=== PATIENT | female | born 1955 | race Caucasian/White ===

== ENCOUNTER → 2017-04-18 13:47 | Outpatient (CLI) | payer OTHER, SELFPAY ==
[2017-04-18 13:58] LABS: Bacteria 0 SEEN /hpf (None Seen); Mucous, Urine 0 SEEN /hpf (<or=2+); Red Blood Cells-Urine 0 SEEN /hpf (0-5); Squamous Epithelial Cells - UA 0 SEEN /hpf (5-10)
[2017-04-18 15:33] LABS: Absolute Neutrophil Count 3.1 X10^3/uL (2.0-7.7); Basophil# 0.03 X10^3/uL; Basophil% 0.5 % (0-1); Eosinophil# 0.13 X10^3/uL; Eosinophils% 2.3 % (0-5); Hematocrit 41.6 % (37-47); Hemoglobin 13.5 g/dl (12.0-15.0); Lymphocyte % 35.6 % (19-41); Mean Corp Hgb Conc 32.5 g/gl (32-36); Mean Corpuscular Hgb 28.8 pg (27.0-32.0); Mean Corpuscular Volume 88.9 fL (81-99); Mean Platelet Vol. 10.3 fl (6.2-12.0); Monocyte# 0.39 X10^3/uL; Monocyte% 6.9 % (0-10); Neutrophil # 3.07 X10^3/uL (2.7-7.7); Neutrophil % 54.7 % (47-70); Platelet Count 253 K/mm3 (150-450); RBC Distribution Width CV 14.3 % (11.6-14.6); RBC Distribution Width SD 46.4 fl (35.1-43.9); Red Blood Count 4.68 M/mm3 (4.2-5.4); White Blood Count 5.6 K/mm3 (4.4-11.0)
[2017-04-18 15:36] LABS: Color, Urine Yellow (Yellow); Glucose, Dipstick Normal (Normal); Ketone-Dipstick Negative (Negative); Leukocyte Esterase-Dipstick 25 /ul (Negative); Nitrite-Dipstick Negative (Negative); Occult Blood-Urine 10 /ul (Negative); Protein-Dipstick 30 mg/dl (Negative); Specific Gravity, Urine 1.015 (1.002-1.030); Urine Bilirubin Dipstick Negative (Negative); Urine Clarity Clear (Clear); Urine Urobilinogen Normal (Normal); Urine pH 6.5 (5.0 - 8.0)
[2017-04-18 15:37] LABS: POSITIVE COUNT NO; POSITIVE DIFFERENTIAL NO; POSITIVE MORPHOLOGY NO
[2017-04-18 15:50] LABS: AST(SGOT) 22 U/L (15-37); Alanine Aminotransfer ALT/SGPT 28 U/L (13-56); Albumin, Serum 3.8 g/dL (3.2-5.0); Alkaline Phosphatase 56 U/L (45-117); Anion Gap 6 (5-15); BUN 18 mg/dL (7-18); BUN/Creat Ratio 19.3 RATIO (10-20); Chloride 106 mmol/L (98-107); Creatinine, Serum 0.93 mg/dL (0.55-1.02); EST Glomerular Filtration Rate 64 mL/min (>60); Est Glom Filt Rate - Afr Amer 78 mL/min (>60); Globulin 3.9 g/dL (2.2-4.2); Glucose 92 mg/dL (74-106); Protein, Total 7.7 g/dL (6.4-8.2); Sodium Level 142 mmol/L (136-145)
[2017-04-18 15:56] LABS: White Blood Cells 0-5 SEEN /hpf (0-5)
== END ==
PROVIDERS: Family Provider Family Medicine; PCP Family Medicine; Visit Provider Family Medicine
DX: R10.11 Right upper quadrant pain (principal)
CPT/HCPCS: 36415; 80053; 81001; 85025; 87086; 87088

== ENCOUNTER → 2017-04-21 09:29 | Outpatient (CLI) | payer OTHER, SELFPAY ==
--- NOTE | 2017-04-21 09:41 | US_ITS ---
STUDY: ABDOMINAL ULTRASOUND - RIGHT UPPER QUADRANT REASON FOR VISIT: Female, 61 years old. Right upper quadrant pain. TECHNIQUE: Ultrasound evaluation of the right upper quadrant was performed with real-time and static guerrero-scale imaging. TECHNICAL QUALITY: Adequate. COMPARISON: Comparison is made with prior examination dated March 04, 2014. FINDINGS: Liver: The liver measures 13.4 cm. There is increased echogenicity consistent with fatty infiltration. Focal fatty sparing is seen in the region of the gallbladder fossa. The bile ducts are within normal limits. There is hepatic color flow. The direction of portal flow is hepatopetal. There is no demonstrated mass lesion. Gallbladder: The patient is status post cholecystectomy. Common Bile Duct (C.B.D.): The common bile duct measures 4.5 mm. Pancreas: There is nonvisualization of the pancreas due to overlying bowel gas. Right Kidney: Normal size of the right kidney. The right kidney measures 10.0 cm x 4.2 cm x 5.0 cm. Normal renal cortex. The right cortex measures 1.8 cm. There is no demonstrated renal mass or cyst. There is no right hydronephrosis. US/Abdomen Limited IMPRESSION: Fatty infiltration of the liver. Status post cholecystectomy. Electronically Signed: Eliezer Branch MD at 15:04 EST Tel [phone], Service support ,
== END ==
PROVIDERS: Family Provider Family Medicine; PCP Family Medicine; Visit Provider Family Medicine
DX: R10.11 Right upper quadrant pain (principal)
CPT/HCPCS: 76705

== ENCOUNTER → 2017-04-28 14:39 | Outpatient (CLI) | payer OTHER, SELFPAY ==
--- NOTE | 2017-04-28 14:40 | CT_ITS ---
STUDY: CT ABDOMEN AND PELVIS WITH CONTRAST REASON FOR EXAM: Female, 61 years old. Right upper quadrant and flank pain. RADIATION DOSAGE (If Supplied By Facility): CTDIvol = ( 21.89 ) mGy, DLP = ( 1093.53 ) mGycm TECHNIQUE: Transaxial images were obtained from the dome of the diaphragm to the symphysis pubis with oral contrast. 100mL ml of Isovue 300 contrast was administered. Sagittal and coronal images were reconstructed. Individualized dose optimization techniques were used for this CT. COMPARISON: None. FINDINGS: Mild degree of dependent bibasilar atelectasis. The visualized portions of the heart are within normal limits. Mild degree of fatty infiltration of the liver. The patient is status post cholecystectomy. Normal spleen. Normal pancreas. Normal bilateral adrenal glands. Normal right kidney. Normal left kidney. Normal visualized stomach. Normal small intestine. There are scattered colonic diverticula consistent with diverticulosis. The patient is status post appendectomy. Normal abdominal aorta. Normal inferior vena cava. Normal retroperitoneum. Normal urinary bladder. There is absence of the uterus consistent with a prior hysterectomy. Normal abdominal wall. There are mild degenerative changes of the visualized lumbar spine. CT/Abdomen/Pelvis WITH Contrast IMPRESSION: No acute abnormality is seen. Electronically Signed: Eliezer Branch MD at 8:31 EDT Tel [phone], Service support ,
== END ==
PROVIDERS: Family Provider Family Medicine; PCP Family Medicine; Visit Provider Family Medicine
DX: R10.9 Unspecified abdominal pain (principal); R10.11 Right upper quadrant pain
CPT/HCPCS: 74177; Q9967

== ENCOUNTER → 2017-08-01 11:44 | Outpatient (CLI) | payer OTHER, SELFPAY ==
--- NOTE | 2017-08-01 11:52 | RAD_ITS ---
STUDY: X-RAY - LUMBAR SPINE REASON FOR EXAM: Female, 62 years old. Back injury 2 weeks ago. No improvement in pain and ability to get around. TECHNIQUE: 5 view(s) of the lumbar spine were obtained. COMPARISON: CT abdomen the abdomen and pelvis 04/28/2017. FINDINGS: Normal lumbar lordosis. There is no substantial scoliosis. There is a normal alignment of the vertebrae. Normal vertebral bodies and endplates. Moderate L5-S1 disc space height narrowing is unchanged. The soft tissue structures are unremarkable. RAD/L/S Spine Min 4 Views IMPRESSION: 1. No acute fracture or malalignment of the lumbar spine. 2. Moderate L5-S1 disc space height narrowing. 3. No significant interval changes when compared to CT abdomen and pelvis dated 04/28/2017. Electronically Signed: Benitez Renee MD at 12:07 EDT , Service support ,
== END ==
PROVIDERS: Family Provider Family Medicine; PCP Family Medicine; Visit Provider Physician Assistant Surgical
DX: S39.012A Strain of muscle, fascia and tendon of lower back, initial encounter (principal)
CPT/HCPCS: 72110

== ENCOUNTER 2017-09-12 15:30 | Outpatient (RCR) | payer OTHER, SELFPAY ==
--- NOTE | 2017-08-11 14:21 | HP.PTEVAL ---
Patient's Visit Information JOSHUA NOGUEIRA is a 62 year old F referred to Physical Therapy by DALLAS Hill with a diagnosis of Lumbar strain. Date of Evaluation: 08/11/17 Physical Therapist: Jm Araya PT, - Visit Plan Frequency: 3x /Week Duration: 4 Weeks Plan: Posterolateral derangement above the knee. Extension responder. Avoid flexion for now. Progress to core strengthening and work simulated tasks when symptoms are controlled. - Subjective Subjective: Pt is a 62 y/o female referred for lumbar strain. 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 She was bending over at the waist to continuous pickling line pickler the object. She is improving overall but still having persistent pain in the L low back region. Describes this symptom as dull. Denies LE radicular symptoms, weakness, numbness, b/b incontinence. She is working ~4 hours/day with restrictions that include: no lifting >10#, no squatting or stooping. Aggrevating factors: sitting for an hour, twisiting Easing factors: Heat, extension. 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 PALPATION: TTP L PSIS. ROM: Lumbar flexion* 25%, extension 75%, R LF 100%, L LF* 50%. ASSESSORY: L4,5 hypomobile PAIVM. GAIT:normal estefanía reciprocal pattern. NEURO: intact,denies parathesia/tingling. MMT: quads/hams 4/5,hip flexion 4/5,great toe ext 4/5. SYMMTRIES: align. FLEXABLITY: hasm min - Special Tests L/S Slump test left side: Positive L/S Slump test right side: Negative L/S Left Straight Leg Raise: Positive L/S Right Straight Leg Raise: Negative Lumbar Standing: Flexion - Mechanical Response: No effect Lumbar Standing: Flexion - Symptoms During Testing: Increases Lumbar Standing: Flexion - Symptoms After Testing: Worse Lumbar Standing: Extension - Mechanical Response: No effect Lumbar Standing: Extension - Symptoms During Testing: Decreases Lumbar Standing: Extension - Symptoms After Testing: Better Comments:: NT Lumbar Lying: Extension - Mechanical Response: No effect Lumbar Lying: Extension - Symptoms During Testing: Decreases Lumbar Lying: Extension - Symptoms After Testing: Better Comments:: L-S - Goals Goal 1:: Pt will demonstrate full lumbar AROM in all planes to improve tolerance with self care and work related tasks. Goal Time Frame: 4-6 Weeks Goal 2:: Pt will demonstrate proper upright sitting posture to improve tolerance with prolonged sitting. Goal Time Frame: 4-6 Weeks Goal 3:: Pt will demonstrate squat lift of 20# from floor to plinth with good body mechanics to reduce risk of re-injury at work. Goal Time Frame: 4-6 Weeks Goal 4:: Pt will be independent with HEP to sustain gains made in the clinic. Goal Time Frame: 4-6 Weeks Goal 5:: Pt will report no limitation with prolonged sitting or walking to improve tolerance with work related tasks. Goal Time Frame: 4-6 Weeks - Rehabilitation Potential Physical Therapy Diagnosis: Pt is 62 y/o female referred for lumbar strain. PT impression symmtrical-assymtical derrangemnt above knee.She has ISAAC of work related injury where she was bending over . She is improving since initial onset. She responded well to REIL and may be classified as a posterolateral derangement above the knee. She has activity limitations that include difficulty with prolonged sitting, inability to lift, and difficulty walking for long periods of time. This limits her participation with work related duties. Pt will benefit from skilled PT to return the patient to full duty work. Rehabilitation Potential: Excellent - Anticipated Interventions Patient/Client Instruction: Educate patient on: Condition, Plan of Care For the Purpose of:: To decrease pain, To increase ROM, To improve muscle performance and motor function, To increase tolerance to activity/condition/position, To improve performance and independence with ADL's, To improve ability of physical actions for home/community/work/leisure, To improve health of tissue, To decrease soft tissue restriction, To increase flexibility/ROM, To reduce risk of recurrence, To improve self management, To prevent re-injury Therapeutic Exercise to Include: Strength training, Endurance training, Body mechanics, Postural training, Flexibilty training, Active ROM, Dynamic Lumbar Stabilization, Toni Exercises For the Purpose of:: To decrease pain, To increase ROM, To improve muscle performance and motor function, To increase tolerance to activity/condition/position, To improve performance and independence with ADL's, To improve ability of physical actions for home/community/work/leisure, To improve health of tissue, To decrease soft tissue restriction, To increase flexibility/ROM, To improve endurance, To reduce risk of recurrence, To improve self management, To prevent re-injury Manual Therapy Techniques to Include: Mobilization, Passive ROM, Soft tissue mobilization For the Purpose of:: To decrease pain, To increase ROM, To improve muscle performance and motor function, To improve ability to perform ADL's, To increase tolerance to activity/condition/position, To improve ability of physical actions for home/community/work/leisure, To improve health of tissue, To decrease soft tissue restriction, To increase flexibility/ROM, To improve endurance TENS: Yes IF ES: Yes Other electric stimulation: Yes Cryotherapy (ice pack, ice massage): Yes Thermo therapy (hot pack): Yes Ultrasound (thermal/non thermal): Yes For the Purpose of:: To decrease pain, To increase ROM, To improve muscle performance and motor function, To increase tolerance to activity/condition/position, To improve performance and independence with ADL's, To improve ability of physical actions for home/community/work/leisure, To decrease soft tissue restriction, To increase flexibility/ROM, To improve endurance, To reduce risk of recurrence Thank you for the opportunity to evaluate your patient. For Medicare and Medicare HMO plans, please review the plan of care and approve it. It will need to be FAXED BACK to us at [phone] for Medicare purposes. Please let me know if there are questions or concerns regarding this plan of care. Physician Signature: Date:
--- NOTE | 2017-09-12 16:12 | HP.PTDCSUM_ITS ---
HP - PT D/C Summary It has been my pleasure to treat JOSHUA NOGUEIRA under orders from D[facility], for the diagnosis of Lumbar strain for a total of 12 visit(s). Discharge Date: 09/12/17 Please see the following information for a summary of their discharge status. - Subjective Subjective: Doing good . - Pain low back Pain Intensity (Out of 10): 0 - Overall Improvement % Improvement: 90 - Objective Objective/Function: POSTURE: WFL. GAIT: NORMAL PEDRO. MMT: quads/hams 4/5, hip 4/5 ,ankle 5/5. LUMBAR ROM: FLEXION MIN ,EXTENSION WFL ,SIDE GLIDES NO PAIN. FLEXABLITY: HAMS WFL - Goals Goal 1:: Pt will demonstrate full lumbar AROM in all planes to improve tolerance with self care and work related tasks. Goal Progress: Goal Met Goal 2:: Pt will demonstrate proper upright sitting posture to improve tolerance with prolonged sitting. Goal Progress: Goal Met Goal 3:: Pt will demonstrate squat lift of 20# from floor to plinth with good body mechanics to reduce risk of re-injury at work. Goal Progress: Goal Met Goal 4:: Pt will be independent with HEP to sustain gains made in the clinic. Goal Progress: Goal Met Goal 5:: Pt will report no limitation with prolonged sitting or walking to improve tolerance with work related tasks. Goal Progress: Goal Met - Plan Plan: D/C - D/C Information Discharge Comments: HEP,GYM If there are questions or concerns regarding this patient's physical therapy, please feel free to call me at [phone]. Thank you for the referral of this patient. Sincerely, Jm Araya, PT,
== END 2017-09-12 19:00 | disposition home or self-care (01) ==
LOC: PT 15:30
PROVIDERS: Family Provider Family Medicine; PCP Family Medicine; Visit Provider Physician Assistant Surgical
DX: S39.012D Strain of muscle, fascia and tendon of lower back, subsequent encounter (principal)
CPT/HCPCS: 97014; 97035; 97110; 97161; G0283

== ENCOUNTER → 2018-07-07 | Outpatient (CLI) | payer MEDICARE, OTHER, SELFPAY ==
[2018-03-13 11:41] VITALS: BMI 28.6
--- NOTE | 2018-07-07 15:27 | RAD_ITS ---
STUDY: X-RAY - RIGHT CALCANEUS REASON FOR EXAM: Female, 63 years old. Right heel pain TECHNIQUE: 2 view(s) of the calcaneus were obtained. COMPARISON: None. FINDINGS: Normal visualized calcaneus. There is a plantar calcaneal spur. There is enthesophyte formation of the posterior superior calcaneus at the site of insertion of the Achilles tendon. There is localized soft tissue swelling posteriorly and thickening of the Achilles tendon. RAD/Calcaneus min 2 Views IMPRESSION: 1. Achilles tendon thickening and posterior soft tissue swelling suggests possibility of tendinopathy. MRI suggested, if clinically appropriate. 2. Calcaneal enthesophyte. 3. Calcaneal spur. Electronically Signed: Gerardo Kulkarni MD at 16:55 EDT , Service support ,
== END | disposition home or self-care (01) ==
LOC: MTRAD 15:25
PROVIDERS: Family Provider Family Medicine; PCP Family Medicine; Referring Provider Family Medicine; Visit Provider Family Medicine
DX: M79.671 Pain in right foot (principal)
CPT/HCPCS: 73650

== ENCOUNTER 2018-10-21 09:08 | Emergency (ER) | payer MEDICARE, OTHER, SELFPAY ==
[2018-10-14 11:13] VITALS: BMI 28.6
[2018-10-21 09:08] VITALS: BP 141/73; PULSE 87; RESP 17; TEMP 36.9; O2SAT 92; BMI 28.1
[2018-10-21 09:59] LABS: Bacteria 0 SEEN /hpf (None Seen); Mucous, Urine 0 SEEN /hpf (<or=2+); Red Blood Cells-Urine 0 SEEN /hpf (0-5); White Blood Cells 0 SEEN /hpf (0-5)
[2018-10-21 10:19] LABS: ALB/GLOB Ratio 0.8 RATIO (0.9-2.4); AST(SGOT) 15 U/L (15-37); Alanine Aminotransfer ALT/SGPT 25 U/L (13-56); Albumin, Serum 3.3 g/dL (3.2-5.0); Alkaline Phosphatase 64 U/L (45-117); Anion Gap 2 (5-15); BUN 25 mg/dL (7-18); BUN/Creat Ratio 27.9 RATIO (10-20); Calcium,Total 8.2 mg/dL (8.5-10.1); Chloride 107 mmol/L (98-107); EST Glomerular Filtration Rate 67 mL/min (>60); Est Glom Filt Rate - Afr Amer 81 mL/min (>60); Globulin 4.1 g/dL (2.2-4.2); Glucose 98 mg/dL (74-106); Protein, Total 7.4 g/dL (6.4-8.2); Sodium Level 141 mmol/L (136-145)
[2018-10-21 10:24] LABS: Color, Urine Yellow (Yellow); Glucose, Dipstick Normal (Normal); Ketone-Dipstick Negative (Negative); Leukocyte Esterase-Dipstick 25 /ul (Negative); Nitrite-Dipstick Negative (Negative); Occult Blood-Urine Negative /ul (Negative); Protein-Dipstick 15 mg/dl (Negative); Specific Gravity, Urine 1.015 (1.002-1.030); Urine Bilirubin Dipstick Negative (Negative); Urine Clarity Clear (Clear); Urine Urobilinogen Normal (Normal); Urine pH 6.5 (5.0 - 8.0)
[2018-10-21 10:25] LABS: Absolute Lymphocyte Count 1.54 X10^3/uL (0.83-4.51); Absolute Neutrophil Count 5.4 X10^3/uL (2.0-7.7); Basophil# 0.05 X10^3/uL; Basophil% 0.6 % (0-1); Eosinophil# 0.26 X10^3/uL; Eosinophils% 3.3 % (0-5); Hemoglobin 14.6 g/dL (12.0-15.0); Lymphocyte # 1.54 X10^3/ul (4.0); Lymphocyte % 19.6 % (19-41); Mean Corp Hgb Conc 31.7 g/dL (32-36); Mean Corpuscular Hgb 28.7 pg (27.0-32.0); Mean Corpuscular Volume 90.6 fL (81-99); Mean Platelet Vol. 9.2 fl (6.2-12.0); Monocyte# 0.59 X10^3/uL; Monocyte% 7.5 % (0-10); NRBC Flagged by Analyzer 0 % (0-5); Neutrophil # 5.37 X10^3/uL (2.7-7.7); Neutrophil % 68.6 % (47-70); Platelet Count 255 K/mm3 (150-450); RBC Distribution Width CV 14.6 % (11.6-14.6); RBC Distribution Width SD 48.2 fl (35.1-43.9); Red Blood Count 5.08 M/mm3 (4.2-5.4); White Blood Count 7.8 K/mm3 (4.4-11.0)
--- NOTE | 2018-10-21 10:25 | ED.VIS.GEN ---
History of Present Illness Chief Complaint: Allergic Reaction Narrative: Patient presenting for evaluation due to concern for possible facial infection with swelling. Patient states that over the course of the last couple weeks she has been dealing with problems with facial swelling. She reports that it is around her bilateral eyes, and is associated with some itching and pain. Patient states that initially she was seen in urgent care for this was placed on a course of prednisone as well as azithromycin and had some improvement but then returned. Again, the patient went on a course of azithromycin and prednisone and it improved, and when she stopped taking the prednisone on she states that she had recurrence once again. Patient denies any fevers. She denies any lip or tongue swelling, shortness of breath or difficulty swallowing. She denies any new contacts such as soap foods close detergents cosmetics pets any travel. She is never had any prior similar episodes in the past. No fevers associated with this. She denies any pain with eye movement. Review of systems otherwise negative. Past Medical History - Allergies and Home Meds Allergies/Adverse Reactions: Allergies latex Allergy (Verified 10/21/18 09:08) Unknown oxycodone Adverse Reaction (Verified 10/21/18 09:08) Nausea/Vom/Diarrhea Primary Care Physician: Rigo Crum DO [Primary Care Provider] - Past Medical History: - - Depression Smoking Status: Former smoker Review of Systems All systems negative except as indicated General: Denies: Fever Eyes: Denies: Visual changes - bilaterally ENT: Reports: - - Facial swelling Respiratory: Denies: Dyspnea Physical Exam Vital Signs/Narrative: Vital Signs Temp Pulse Resp BP Pulse Ox 10/21/18 09:08 98.4 F 87 17 141/73 H 92 General: Well nourished, Well developed, No Acute Distress Head: Normocephalic, - - bilateral periorbital edema with a very fine yellow crusting. No fluctuance noted Eyes: Perrl, EOMI - No pain with EOM Neck: Supple, Nontender Cardiovascular: Regular rate, Regular rhythm, No murmurs Respiratory: No distress, CTA bilaterally, Chest nontender Abdomen: Soft, Nontender, Nondistended, Normal bowel sounds Back: Nontender, Normal Inspection Extremities: Nontender, No edema Skin: Normal color, No rash Neurological: Alert, Oriented x3, Cranial nerves II-XII grossly intact, Normal Strength, Normal Sensation Psychological: Normal affect, Normal Mood Diagnostic/Tx/Re-eval - Medical Decision Making Secondary to periorbital edema. Physical exam showed swelling that really seemed more consistent with an allergic type reaction, but there was a fine amount of yellow crusting over the skin that potentially could be evidence of a streptococcal infection or impetigo. I did obtain labs on the patient to make sure that this was not an abnormal presentation of a leukemia, nephrotic syndrome, renal insufficiency, electrolyte abnormality those were found to be negative. Patient at this point I believe would benefit from continued antibiotic and steroid taper. She was encouraged to follow-up with primary care on Tuesday with a previously scheduled appointment. Patient does not seem to have any evidence of orbital cellulitis. ED Disposition - Plan for ED Patient: Disposition: Home or Assisted Living Diagnosis: Periorbital edema Instructions: ALLERGIC REACTION, Other (Local), Impetigo Prescriptions: Amox/Clavulanate Tablet [Augmentin Tablet] 875 mg PO Q12H #20 tab Prescription Printed Prednisone 10 mg PO DAILY #63 tab Prescription Printed hydrOXYzine pamoate capsule [Vistaril] 50 mg PO TID PRN PRN #30 cap PRN Reason: Itching Prescription Printed Referrals: Rigo Crum DO [Primary Care Provider] - Keep Robert appointment
[2018-10-21 10:52] LABS: Squamous Epithelial Cells - UA 0-5 SEEN /hpf (5-10)
[2018-10-21 11:23] VITALS: BP 118/62; PULSE 74; RESP 16; O2SAT 97
== END 2018-10-21 11:24 | disposition home or self-care (01) ==
PROVIDERS: Emergency Provider Emergency Medicine; Family Provider Family Medicine; PCP Family Medicine
DX: R22.0 Localized swelling, mass and lump, head (principal); F32.9 Major depressive disorder, single episode, unspecified; Z79.899 Other long term (current) drug therapy; Z87.891 Personal history of nicotine dependence
CPT/HCPCS: 80053; 81001; 85025; 99284; A4216

== ENCOUNTER → 2018-10-23 09:27 | Outpatient (CLI) | payer MEDICARE, OTHER, SELFPAY ==
[2018-10-21 09:08] VITALS: BMI 28.1
[2018-10-23 13:09] LABS: Thyroid Stim Hormone (TSH) 3.01 uIU/mL (0.358-3.74)
[2018-10-25 12:21] LABS: ANTINUCLEAR ANTIBODIES DIRECT Negative (Negative)
[2018-10-25 20:10] LABS: Thyroid Peroxidase AB 587 IU/mL (0-34)
[2018-10-30 13:00] LABS: C1 EST Inhibitor, Functional 83 (.); Thyroglobulin Antibody 4.8 IU/mL (0.0-0.9)
== END ==
PROVIDERS: Family Provider Family Medicine; PCP Family Medicine; Visit Provider Family Medicine
DX: R60.9 Edema, unspecified (principal); R53.83 Other fatigue; T78.3XXA Angioneurotic edema, initial encounter; L50.9 Urticaria, unspecified
CPT/HCPCS: 36415; 84443; 86038; 86160; 86161; 86225; 86235; 86376; 86800

== ENCOUNTER 2018-11-16 12:00 | Outpatient (RCR) | payer MEDICARE, SELFPAY ==
[2018-03-13 11:41] VITALS: BMI 28.6
--- NOTE | 2018-09-19 15:51 | HP.PTEVAL_ITS ---
Patient's Visit Information JOSHUA NOGUEIRA is a 63 year old F referred to Physical Therapy by Michael Escobedo DPM with a diagnosis of R achilles tendonitis and calcaneal spurring. Date of Evaluation: 09/19/18 Physical Therapist: Dariusz Hassan DPT - Visit Plan Frequency: 2x /Week Duration: 4-6 Weeks Plan: Start with graston to achilles tendon, US and stretching. May progressing to DN if needed. Once pain has reduced add in eccentric strengthening as tolerat ed. - Subjective Findings: Pt. is here today for her initial evaluation with diagnosis of R achilles tendonitis and calcaneal heel spur. Pt. reports having increased pain for months, but became worse of the last few months. Pt. has been in a boot for ~1 month now and reports slight reduction in symptoms. Pt. reports increased pain with walking, standing and is tender to the touch. Pt. denies N/T in either LE. Pt. has not trialed any exercises yet, but did do some light ankle pumps/DF movement. Pt. reports icing x2 daily. Pt. works at [employer] during the day for ~6 hours x5 days per week. Pt. is hopeful to reduce symptoms in order to get back to all recreational activtiies including walking, hiking, but not running. - Pain R achilles tendon Pain Intensity (Out of 10): 4 Pain Intensity Range: 3, 8 - Objective POSTURE: Pt. has normal foot positoning in stance. Pt. has increased pain and difficulty maintaining proper SLS positioning. PALPATION: Pt. has increased tenderness at achilles tendon ~1 inch superior to superior aspect of calcaneus. pt. has thin achilles tendon as well. Normal color, no heat. NEURO: normal throughout. ROM: L ankle DF 18deg, PF 54deg, INV 18deg, EVR 16deg. R ankle DF 6deg increase NW, PF 48deg NE, INV 14deg NE, EVR 14deg NE. MMT: L ankle- 5/5 throughout; R ankle- DF 5/5, PF 5-/5 mild increase NW, INV 5-/5 mild increase NW, EVR 5/5 NE. GAIT: Pt. ambulating without AD: Pt. has decreased L step le ngth, early R heel off, limited PF during pre swing phase, Flat foot landing during initial contact on RLE. STAIRS: Increased pain with descneding, less severe with ascending. - Goals Goal 1:: Pt. to be I with HEP. Goal Time Frame: 4-6 Weeks Goal 2:: Pt. to have increased R ankle DF to full without increase in syptoms. Goal Time Frame: 4-6 Weeks Goal 3:: Pt. to ambulate with normalied gait pattern without increase in symptoms of unlmited distances. Goal Time Frame: 4-6 Weeks Goal 4:: Pt. to negotiate steps with reciprocal pattern with use of 1 HR wtihout increase in symptoms. Goal Time Frame: 4-6 Weeks Goal 5:: Pt. to have full strength of R ankle musculature without increase in symptoms. Goal Time Frame: 4-6 Weeks - Rehabilitation Potential Physical Therapy Diagnosis: Pt. has signs and symptoms consistent with achilles tendonosis and calcaneal spurring. Pt. has decreased ROM, increased pain and difficulty with walking. Pt. would benefit from PT to address above limitations. Rehabilitation Potential: Good - Anticipated Interventions Patient/Client Instruction: Educate patient on: Condition, Plan of Care, Risk Factors, Benefits of Fitness Program For the Purpose of:: To facilitate caregiver knowledge, To improve self management, To prevent re-injury, To improve ability to perform tasks related to life management, To improve tolerance to ADL's Therapeutic Exercise to Include: Strength training, Power training, Balance training, Body mechanics, Postural training, Flexibilty training, Gait and locomotor training, Passive ROM For the Purpose of:: To decrease pain, To decrease swelling/inflammation, To increase ROM, To improve nutrient delivery to tissue, To improve muscle performance and motor function, To increase tolerance to act ivity/condition/position, To improve gait and locomotor functions, To improve health of tissue, To decrease soft tissue restriction, To increase flexibility/ROM Manual Therapy Techniques to Include: Functional dry needling, Soft tissue mobilization Comment: [place] and [place] For the Purpose of:: To decrease pain, To decrease swelling/inflammation, To increase ROM, To improve nutrient delivery to tissue, To increase oxygenation perfusion, To improve muscle performance and motor function TENS: Yes Cryotherapy (ice pack, ice massage): Yes Ultrasound (thermal/non thermal): Yes For the Purpose of:: To decrease pain, To decrease swelling/inflammation, To increase ROM, To improve nutrient delivery to tissue, To increase oxygenation perfusion, To improve muscle performance and motor function Thank you for the opportunity to evaluate your patient. For Medicare and Medicare HMO plans, please review the plan of care and approve it. It will need to be FAXED BACK to us at [phone] for Medicare purposes. For Medicare only, by signing this I certify the plan of care. Please let me know if there are questions or concerns regarding this plan of care. Physician Signature : Date:
--- NOTE | 2018-10-19 12:37 | HP.PTREVAL_ITS ---
Michael Escobedo DPM, It has been my pleasure to treat JOSHUA NOGUEIRA over the last 10 visits for R achilles tendonitis and calcaneal spurring. Please see the progress note below for an update on the physical therapy plan of care! Subjective: Patient reports MD thinks that she is 80% better and wants to continue therapy and to be 100%. Is worries that she doesn't have a tweak to set her backwards. Patient feels that she is 80%- wants to be able to do the ellip for 30 min. No rhyme or reason but does have some soreness- 02/23 at its worst. He wants her to wear the boot for work- and around the house for intense activities. Objective/Function: POSTURE: Pt. has normal foot positoning in stance phase. SLS: 10 sec increased muscle activation and increased pes planus. Observation: minimalist shoes - poor support- no inserts. PALPATION:mild tenderness at achilles tendon ~1 inch superior to superior aspect of calcaneus. ROM: R ankle DF 12 degrees, PF 55 degrees INV 20 degrees, EVR 15 degrees. Strength: L ankle- 5/5 throughout; R ankle: 5/5, knee: 5/5, hip: 4/5 throughout Core: fair. GAIT: no deviation noted. Plan Plan: Patient to continue 2x a week for 4 weeks for LE and core strength/stabilization- new shoes to promote decreased muscle activation in SLS- wean back into ellip and walking on TM Goals Goal 1:: Pt. to be I with HEP. Goal Time Frame: 4-6 Weeks Goal Progress: Progressing Goal 2:: Pt. to have increased R ankle DF to full without increase in syptoms. Goal Time Frame: 4-6 Weeks Goal Progress: Progressing Goal 3:: Pt. to ambulate with normalied gait pattern without increase in symptoms of unlmited distances. Goal Time Frame: 4-6 Weeks Goal Progress: Progressing Goal 4:: Pt. to negotiate steps with reciprocal pattern with use of 1 HR wtihout increase in symptoms. Goal Time Frame: 4-6 Weeks Goal Progress: Goal Met Goal 5:: Pt. to have full strength of R ankle musculature without increase in symptoms. Goal Time Frame: 4-6 Weeks Goal Progress: Progressing Anticipated Interventions Patient/Client Instruction: Educate patient on: Condition, Plan of Care, Risk Factors, Benefits of Fitness Program For the Purpose of:: To facilitate caregiver knowledge, To improve self management, To prevent re-injury, To improve ability to perform tasks related to life management, To improve tolerance to ADL's Therapeutic Exercise to Include: Strength training, Power training, Balance training, Body mechanics, Postural training, Flexibilty training, Gait and locomotor training, Passive ROM For the Purpose of:: To decrease pain, To decrease swelling/inflammation, To increase ROM, To improve nutrient delivery to tissue, To improve muscle performance and motor function, To increase tolerance to activity/condition/position, To improve gait and locomotor functions, To improve health of tissue, To decrease soft tissue restriction, To increase flexibility/ROM Manual Therapy Techniques to Include: Functional dry needling, Soft tissue mobilization Comment: Alejandra barahona For the Purpose of:: To decrease pain, To decrease swelling/inflammation, To increase ROM, To improve nutrient delivery to tissue, To increase oxygenation perfusion, To improve muscle performance and motor function TENS: Yes Cryotherapy (ice pack, ice massage): Yes Ultrasound (thermal/non thermal): Yes For the Purpose of:: To decrease pain, To decrease swelling/inflammation, To increase ROM, To improve nutrient delivery to tissue, To increase oxygenation perfusion, To improve muscle performance and motor function Please do not hesitate to contact me at [phone] by phone or Fax: if you have questions or concerns regarding this new plan of care! Sincerely, Enriqueta Acosta DPT
--- NOTE | 2018-11-16 12:32 | HP.PTDCSUM ---
HP - PT D/C Summary It has been my pleasure to treat JOSHUA NOGUEIRA under orders from Michael Escobedo DPM, for the diagnosis of R achilles tendonitis and calcaneal spurring for a total of 18 visit(s). Discharge Date: 11/16/18 Please see the following information for a summary of their discharge status. - Subjective Subjective: Pt. reports no issues currently. Pt. is no longer wearing her boot and has not had pain in 2 weeks. Pt. reports being 100% better. Pt. is now fully independent with gym and home exercises. - Pain R achilles tendon Pain Intensity (Out of 10): 0 - Overall Improvement % Improvement: 100 - Objective Objective/Function: Pt. has full ROM of her ankle, no pain with MMT and with all functional mobility. Pt. did very well with PT and will be DC from PT at this point in time. - Goals Goal 1:: Pt. to be I with HEP. Goal Progress: Goal Met Goal 2:: Pt. to have increased R ankle DF to full without increase in syptoms. Goal Progress: Goal Met Goal 3:: Pt. to ambulate with normalied gait pattern without increase in symptoms of unlmited distances. Goal Progress: Goal Met Goal 4:: Pt. to negotiate steps with reciprocal pattern with use of 1 HR wtihout increase in symptoms. Goal Progress: Goal Met Goal 5:: Pt. to have full strength of R ankle musculature without increase in symptoms. Goal Progress: Goal Met - Plan Plan: Pt. to be DC to HEP and gym exercises at this point intime. - D/C Information Discharge Comments: Pt. was seen in PT for her achilles tendon pain. She progressed very well and reports being 100% better. Pt. reports no pain and no longer wearing her boot. Pt. is back to all work and recreational actvities. Pt. will be DC from PT at this point in time. If there are questions or concerns regarding this patient's physical therapy, please feel free to call me at [phone]. Thank you for the referral of this patient. Sincerely, Dariusz Hassan DPT
== END 2018-11-16 15:49 | disposition home or self-care (01) ==
LOC: PT 12:00
PROVIDERS: Family Provider Family Medicine; PCP Family Medicine; Referring Provider Podiatrist; Visit Provider Podiatrist
DX: M77.31 Calcaneal spur, right foot (principal); M76.61 Achilles tendinitis, right leg; M79.671 Pain in right foot; M21.6X9 Other acquired deformities of unspecified foot
CPT/HCPCS: 97035; 97110; 97161; 97164

== ENCOUNTER → 2018-12-01 11:08 | Outpatient (CLI) | payer MEDICARE, OTHER, SELFPAY ==
[2018-11-29 11:01] VITALS: BMI 28.1
[2018-12-01 16:41] LABS: T4 Free Direct 1.04 ng/dL (0.76-1.46); Thyroid Stim Hormone (TSH) 0.26 uIU/mL (0.358-3.74)
== END ==
LOC: LAB.FUTURE 11:09 → BFHLAB 01-25 14:17
PROVIDERS: Family Provider Family Medicine; PCP Family Medicine; Visit Provider Family Medicine
DX: E06.3 Autoimmune thyroiditis (principal)
CPT/HCPCS: 36415; 84439; 84443

== ENCOUNTER → 2019-01-01 14:06 | Outpatient (CLI) | payer MEDICARE, OTHER, SELFPAY ==
[2018-11-29 11:01] VITALS: BMI 28.1
[2019-01-05 08:11] LABS: Alternaria tenuis <0.10 kU/L (Class 0); Ash, White <0.10 kU/L (Class 0); Aspergillus fumigatus <0.10 kU/L (Class 0); Bermuda Grass <0.10 kU/L (Class 0); Birch <0.10 kU/L (Class 0); Black Walnut <0.10 kU/L (Class 0); Cat Hair / Dander,Stand <0.10 kU/L (Class 0); Cedar, Mountain <0.10 kU/L (Class 0); Cladosporium herbarum <0.10 kU/L (Class 0); Cockroach, American <0.10 kU/L (Class 0); Cottonwood <0.10 kU/L (Class 0); D farinae Mite <0.10 kU/L (Class 0); D pteronyssinus <0.10 kU/L (Class 0); Dog Epithelia <0.10 kU/L (Class 0); Elm, American White <0.10 kU/L (Class 0); Immunoglobulin E 20 IU/mL (6-495); Maple/Box Elder <0.10 kU/L (Class 0); Mulberry, White <0.10 kU/L (Class 0); Oak, White <0.10 kU/L (Class 0); Pecan <0.10 kU/L (Class 0); Penicillium Notatum <0.10 kU/L (Class 0); Pigweed, Rough <0.10 kU/L (Class 0); Ragweed, Short/Common <0.10 kU/L (Class 0); Russian Thistle <0.10 kU/L (Class 0); Sheep Sorrel <0.10 kU/L (Class 0); Sycamore, American <0.10 kU/L (Class 0); Timothy Grass <0.10 kU/L (Class 0)
[2019-01-05 11:41] LABS: Mouse Urine <0.10 kU/L (Class 0)
[2019-01-06 03:06] LABS: Chicken <0.10 kU/L (Class 0); Gluten <0.10 kU/L (Class 0); Milk (Cow) <0.10 kU/L (Class 0); Orange <0.10 kU/L (Class 0); Pea <0.10 kU/L (Class 0); Rice <0.10 kU/L (Class 0); SESAME SEED <0.10 kU/L (Class 0); Shrimp <0.10 kU/L (Class 0)
[2019-01-06 13:00] LABS: Oat <0.10 kU/L (Class 0); Peanut <0.10 kU/L (Class 0)
== END ==
PROVIDERS: Family Provider Family Medicine; PCP Family Medicine; Referring Provider Otolaryngology Otolaryngology/Facial Plastic Surgery; Visit Provider Otolaryngology Otolaryngology/Facial Plastic Surgery
DX: T78.40XA Allergy, unspecified, initial encounter (principal)
CPT/HCPCS: 36415; 82785; 86003

== ENCOUNTER → 2019-01-16 14:11 | Outpatient (CLI) | payer MEDICARE, OTHER, SELFPAY ==
[2018-11-29 11:01] VITALS: BMI 28.1
--- NOTE | 2019-01-16 14:12 | CT_ITS ---
STUDY: CT MAXILLOFACIAL SINUSES REASON FOR EXAM: Female, 63 years old. Sinusitis for 2 months. Eye swelling. Patient on steroids. RADIATION DOSAGE (If Supplied By Facility): CTDIvol = ( 33.45 ) mGy, DLP = ( 826.54 ) mGycm TECHNIQUE: The patient was scanned in a multi detector CT scanner. High resolution axial imaging was performed without the administration of intravenous contrast material. Sagittal and coronal images were reconstructed. Individualized dose optimization techniques were used for this CT. COMPARISON: None. FINDINGS: FRONTAL SINUSES: Normal aeration, without mucosal inflammatory disease. ETHMOIDAL SINUSES: Normal aeration, without mucosal inflammatory disease. MAXILLARY SINUSES: Normal aeration, without mucosal inflammatory disease. SPHENOIDAL SINUSES: Normal aeration, without mucosal inflammatory disease. There is patency of the bilateral maxillary infundibuli with normal uncinate processes, ethmoid bullae, and hiatus semilunaris. Normal bilateral middle turbinates. Normal bilateral inferior turbinates. Normal midline nasal septum. There is patency of the bilateral nasal airways. The visualized osseous structures are normal. The visualized bilateral orbital contents are normal. CT/Sinus/Facial Bone IMPRESSION: Normal CT examination of the maxillofacial sinuses. Electronically Signed: John Chan DO at 23:35 EST Tel [phone], Service support ,
== END ==
PROVIDERS: Family Provider Family Medicine; PCP Family Medicine; Referring Provider Otolaryngology Otolaryngology/Facial Plastic Surgery; Visit Provider Otolaryngology Otolaryngology/Facial Plastic Surgery
DX: J32.9 Chronic sinusitis, unspecified (principal)
CPT/HCPCS: 70486

== ENCOUNTER → 2019-01-25 14:36 | Outpatient (CLI) | payer MEDICARE, OTHER, SELFPAY ==
[2018-11-29 11:01] VITALS: BMI 28.1
[2019-01-25 16:09] LABS: T4 Free Direct 0.94 ng/dL (0.76-1.46); Thyroid Stim Hormone (TSH) 0.48 uIU/mL (0.358-3.74)
[2019-01-29 16:07] LABS: Thyroid Peroxidase AB 298 IU/mL (0-34)
[2019-01-29 20:09] LABS: Thyroglobulin Antibody 7.4 IU/mL (0.0-0.9)
== END ==
PROVIDERS: Family Provider Family Medicine; PCP Family Medicine; Visit Provider Family Medicine
DX: E06.3 Autoimmune thyroiditis (principal)
CPT/HCPCS: 36415; 84439; 84443; 86376; 86800

== ENCOUNTER → 2019-02-08 14:32 | Outpatient (CLI) | payer MEDICARE, OTHER, SELFPAY ==
[2018-11-29 11:01] VITALS: BMI 28.1
[2019-02-12 13:05] LABS: V-Zoster IgG (Immunity) 848 index (Immune >165)
== END ==
PROVIDERS: Family Provider Family Medicine; PCP Family Medicine; Visit Provider Family Medicine
DX: B02.9 Zoster without complications (principal)
CPT/HCPCS: 36415; 86787

== ENCOUNTER → 2019-02-26 11:20 | Outpatient (CLI) | payer MEDICARE, OTHER, SELFPAY ==
[2018-11-29 11:01] VITALS: BMI 28.1
[2019-02-28 20:51] LABS: V-Zoster Virus Acute IgM < 0.91 index (0.00-0.90)
== END ==
PROVIDERS: Family Provider Family Medicine; PCP Family Medicine; Visit Provider Family Medicine
DX: B02.9 Zoster without complications (principal)
CPT/HCPCS: 36415; 86787

== ENCOUNTER → 2021-01-13 14:41 | Outpatient (CLI) | payer MEDICARE, OTHER, SELFPAY ==
--- NOTE | 2021-01-13 14:43 | BI_ITS ---
MAMMOGRAPHY - BILATERAL SCREENING REASON FOR EXAM: Female, 65 years old. Routine annual screening examination. PERTINENT HISTORY: Non-contributory. TECHNIQUE: Digital bilateral breast alyssa (3D mammographic acquisition) in the CC and MLO projections. 2-D mediolateral oblique (MLO) and craniocaudad (CC) views of both breasts were obtained. CAD: Full Field Digital Mammography with Computer Added Detection was performed. COMPARISON: Comparison is made with prior study dated 03/21/2014 and 08/31/2012. FINDINGS: Breast Composition: The breasts are almost entirely fatty. There are no dominant masses or suspicious calcifications. Stable small benign-appearing left axillary No other significant abnormalities are identified. There has been no significant change since the prior study. BI/SCRN MAMM (CAD)W/ALYSSA BILAT IMPRESSION: Stable bilateral screening mammogram. Yearly follow-up mammogram recommended. (A) ASSESSMENT CATEGORY: BIRADS Category 2: Benign. A letter regarding these results will be sent to the patient by the facility within 30 days. Approximately 10% of breast cancers are not detected by mammography. A normal mammogram should not delay biopsy of a clinically suspicious abnormality. [id number] Electronically Signed: Eliezer Branch MD at 8:40 EST , Service support ,
--- NOTE | 2021-01-13 14:51 | BD_ITS ---
STUDY: DUAL ENERGY X-RAY ABSORPTIOMETRY / DXA REASON FOR EXAM: Female, 65 years old. M840. Patient is postmenopausal. TECHNIQUE: Bone Mineral Density (BMD) measurements of lumbar spine and bilateral hips were obtained. COMPARISON: Comparison is made with prior study dated 03/21/2014. FINDINGS: Lumbar Spine (L1-L4): g/cm2 (0.971) / T-score (-0.7) / Z-score (1.2) Findings are suggestive of normal bone density with a low fracture risk. Left Femur Total: g/cm2 (0.849) / T-score (-0.8) / Z-score (0.6) Left Femoral Neck: g/cm2 (0.661) / T-score (-1.7) / Z-score (0.0) Right Femur Total: g/cm2 (0.870) / T-score (-0.6) / Z-score (0.8) Right Femoral Neck: g/cm2 (0.649) / T-score (-1.8) / Z-score (-0.2) The T-Scores on the most recent prior examination were: Lumbar Spine (L1-L4): There has been worsening of bone density since the previous examination. Left Femur Total: which represents an improvement of 5.7%. Right Femur Total: which represents an improvement of 5.2%. BD/Dexa Bone Density Study IMPRESSION: The patient is considered osteopenic as outlined below according to World Cy Organization (WHO) criteria with a moderate fracture risk. There has been improvement of bone density since the previous examination. Reference Information: The T-score is the number of standard deviations above or below the standard which is normal for young adults at their peak bone mineral density. The World Health Organization (WHO) interprets the T-scores as follows: Above -1 Normal bone density Between -1 and -2.5 Osteopenia Equal to / or below -2.5 Osteoporosis As a practical clinical guideline, osteopenia may be graded as follows: Mild -1 through -1.5 Moderate -1.6 through -2.0 Severe -2.1 through -2.4 The Z-score is the number of standard deviations above or below age-matched controls. A Z-score of less than -1.5 would be considered abnormal. References: 1. NIH Osteoporosis and Related Bone Diseases www osteo.org 2. International Society for Clinical Densitometry www iscd.org 3. National Osteoporosis Foundation www nof.org Electronically Signed: Eliezer Branch MD at 10:14 EST , Service support ,
== END ==
PROVIDERS: PCP Family Medicine; Referring Provider Family Medicine; Visit Provider Family Medicine
DX: Z12.31 Encounter for screening mammogram for malignant neoplasm of breast (principal); Z78.0 Asymptomatic menopausal state
CPT/HCPCS: 77063; 77067; 77080

== ENCOUNTER 2021-01-19 11:00 | Outpatient (RCR) | payer MEDICARE, OTHER, SELFPAY ==
--- NOTE | 2020-12-22 11:50 | HP.PTEVAL ---
Patient's Visit Information JOSHUA NOGUEIRA is a 65 year old F referred to Physical Therapy by Dr. Gisella Slaughter MD with a diagnosis of Chronic R side and back pain. Date of Evaluation: 12/22/20 Physical Therapist: ANA LAURA Whitaker - Visit Plan Frequency: 2x /Week Duration: 4 Weeks Plan: 2X/ week for 4 weeks for T12/L1 rotation and extension mobs/manual therapy, postural exercises and core stability with HEP and modalities as needed with HEP. HEP: sitting with a L-roll and prone press ups - Subjective Pt has had pain on her R abdominal for some time and no one can figure it out. Her Dr said she should go to PT to see if her back is out of wack. This pain started about a year ago and it has gotten worse. They did a scan 3 years ago and a colonoscopy 6 years ago and nothing has showed up. The pain increases when she is on her feet a lot or when she works all day. The pain is there all the time. Stretching increases the pain. She bending, twists, and lifts all day long. she has no N&T. Sometimes when she rolls over she is not sure if it wakes her up or if she just wakes up and feels it. Every once in awhile she will have a sharp stabbing pain but most of the time it is an ache. She has some LBP. She has had back pain off and on for years. She hurt her back at work 3-4 years ago. - Pain R abdominal pain Pain Intensity (Out of 10): 1 - Objective Gait: Walks with a normal gait pattern. palpation: tender on the R side T12 vertebra and along the last rib on the R side. Tried Some R rotation mobs at T12/L1 and pt felt better and ext mobs. Tried extension over the chair and pt had no issue with that. Prone press ups 2 X 10. L SB and Flexion AROM increase pain. Ext veered from the R side. LE MMT: R hip abd 4-/5 and L 4/5, B hip flex 4/5, B hip ext 4/5, B knee flex and knee ext 4/5. Patellar DTR's B 2+/3. Pt felt better after R ext and rotation mobs at T12 - Balance/Special Test Scores Oswestry Low Back Score: 3 - Goals Goal 1:: I HEP Goal Time Frame: 4-6 Weeks Goal 2:: Increase to normal pain free trunk ROM Goal Time Frame: 4-6 Weeks Goal 3:: Abolish R sided abdominal pain Goal Time Frame: 4-6 Weeks Goal 4:: Sit with upright posture during treatment sessions Goal Time Frame: 4-6 Weeks - Rehabilitation Potential Rehabilitation Potential: Good - Anticipated Interventions Patient/Client Instruction: Educate patient on: Condition, Plan of Care For the Purpose of:: To decrease pain, To increase ROM, To improve nutrient delivery to tissue, To improve muscle performance and motor function, To improve ability to perform ADL's, To increase tolerance to activity/condition/position, To improve performance and independence with ADL's, To decrease level of supervision to perform tasks, To improve ability of physical actions for home/community/work/leisure, To improve gait and locomotor functions, To improve health of tissue, To decrease soft tissue restriction, To increase flexibility/ROM Therapeutic Exercise to Include: Strength training, Postural training, Flexibilty training, Gait and locomotor training, Neuromotor development, Active ROM, Dynamic Lumbar Stabilization, Toni Exercises, Scapular Strength/Stabilization For the Purpose of:: To decrease pain, To increase ROM, To improve nutrient delivery to tissue, To increase oxygenation perfusion, To improve ability to perform ADL's, To increase tolerance to activity/condition/position, To improve gait and locomotor functions, To improve health of tissue, To decrease soft tissue restriction, To increase flexibility/ROM Manual Therapy Techniques to Include: Mobilization, Passive ROM, Soft tissue mobilization For the Purpose of:: To decrease pain, To increase ROM, To improve nutrient delivery to tissue, To improve muscle performance and motor function, To improve ability to perform ADL's, To increase tolerance to activity/condition/position, To improve performance and independence with ADL's, To decrease level of supervision to perform tasks, To improve ability of physical actions for home/community/work/leisure, To decrease soft tissue restriction, To increase flexibility/ROM IF ES: Yes Cryotherapy (ice pack, ice massage): Yes Thermo therapy (hot pack): Yes For the Purpose of:: To decrease pain, To increase ROM, To improve nutrient delivery to tissue Thank you for the opportunity to evaluate your patient. For Medicare and Medicare HMO plans, please review the plan of care and approve it. It will need to be FAXED BACK to us at [phone] for Medicare purposes. For Medicare only, by signing this I certify the plan of care. Please let me know if there are questions or concerns regarding this plan of care. Physician Signature: Date:
--- NOTE | 2021-01-19 12:15 | HP.PTREVAL_ITS ---
Dr. Gisella Slaughter MD, It has been my pleasure to treat JOSHUA NOGUEIRA over the last 7 visits for Chronic R side and back pain. Please see the progress note below for an update on the physical therapy plan of care! Subjective: Pt feels that she is doing well and willing to try to keep up with the exercises at home. 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 Plan Plan: Pt will call in within 2 weeks if she needs further PT or discharge in 2 weeks if not heard from. She will continue to work on her HEP. Balance/Gait/Functional tests - Balance/Special Test Scores Oswestry Low Back Score: 5 Goals Goal 1:: I HEP Goal Time Frame: 4-6 Weeks Goal Progress: Goal Met Goal 2:: Increase to normal pain free trunk ROM Goal Time Frame: 4-6 Weeks Goal Progress: Progressing Goal 3:: Abolish R sided abdominal pain Goal Time Frame: 4-6 Weeks Goal Progress: Progressing Goal 4:: Sit with upright posture during treatment sessions Goal Time Frame: 4-6 Weeks Goal Progress: Goal Met Anticipated Interventions Patient/Client Instruction: Educate patient on: Condition, Plan of Care For the Purpose of:: To decrease pain, To increase ROM, To improve nutrient delivery to tissue, To improve muscle performance and motor function, To improve ability to perform ADL's, To increase tolerance to activity/condition/position, To improve performance and independence with ADL's, To decrease level of supervision to perform tasks, To improve ability of physical actions for home/community/work/leisure, To improve gait and locomotor functions, To improve health of tissue, To decrease soft tissue restriction, To increase flexibility/ROM Therapeutic Exercise to Include: Strength training, Postural training, Flexibilty training, Gait and locomotor training, Neuromotor development, Active ROM, Dynamic Lumbar Stabilization, Toni Exercises, Scapular Strength/St abilization For the Purpose of:: To decrease pain, To increase ROM, To improve nutrient delivery to tissue, To increase oxygenation perfusion, To improve ability to perform ADL's, To increase tolerance to activity/condition/position, To improve gait and locomotor functions, To improve health of tissue, To decrease soft tissue restriction, To increase flexibility/ROM Manual Therapy Techniques to Include: Mobilization, Passive ROM, Soft tissue mobilization For the Purpose of:: To decrease pain, To increase ROM, To improve nutrient delivery to tissue, To improve muscle performance and motor function, To improve ability to perform ADL's, To increase tolerance to activity/condition/position, To improve performance and independence with ADL's, To decrease level of supervision to perform tasks, To improve ability of physical actions for home/community/work/leisure, To decrease soft tissue restriction, To increase flexibility/ROM IF ES: Yes Cryotherapy (ice pack, ice massage): Yes Thermo therapy (hot pack): Yes For the Purpose of:: To decrease pain, To increase ROM, To improve nutrient delivery to tissue Please do not hesitate to contact me at [phone] by phone or if you have questions or concerns regarding this new plan of care! Sincerely, Ama Lucas, MPT
--- NOTE | 2021-02-03 07:06 | HP.PTDCSUM ---
It has been my pleasure to treat JOSHUA NOGUEIRA referred by Dr. Gisella Slaughter MD, with the diagnosis of Chronic R side and back pain for a total of 7 visit(s). Discharge Date: 02/03/21 Please see the following information for a summary of their discharge status. Subjective: Pt feels that she is doing well and willing to try to keep up with the exercises at home. 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 Goal 1:: I HEP Goal Progress: Goal Met Goal 2:: Increase to normal pain free trunk ROM Goal Progress: Progressing Goal 3:: Abolish R sided abdominal pain Goal Progress: Progressing Goal 4:: Sit with upright posture during treatment sessions Goal Progress: Goal Met Plan: Pt will call in within 2 weeks if she needs further PT or discharge in 2 weeks if not heard from. She will continue to work on her HEP. DC PT as pt called in and states that she is doing well. Discharge Comments: DC PT If there are questions or concerns regarding this patient's physical therapy, please feel free to call me at [phone]. Thank you for the referral of this patient. Sincerely, Ama Lucas, MPT Balance/Gait/Functional tests - Balance/Special Test Scores Oswestry Low Back Score: 5
== END 2021-01-19 19:00 | disposition home or self-care (01) ==
LOC: PT 11:00
PROVIDERS: PCP Family Medicine; Referring Provider Urology; Visit Provider Urology
DX: M54.9 Dorsalgia, unspecified (principal); G89.29 Other chronic pain
CPT/HCPCS: 97110; 97161

== ENCOUNTER → 2021-01-29 09:34 | Outpatient (CLI) | payer MEDICARE, OTHER, SELFPAY ==
--- NOTE | 2021-01-29 10:01 | EKG12_ITS ---
Test Reason : PRE OP Blood Pressure : / mmHG Vent. Rate : 080 BPM Atrial Rate : 080 BPM P-R Int : 116 ms QRS Dur : 076 ms QT Int : 406 ms P-R-T Axes : 035 019 046 degrees QTc Int : 468 ms Normal sinus rhythm Normal ECG Confirmed by NARAYAN CRENSHAW, NOÉ ([id number]), editor city BENJAMIN VERA ([id number]) on 01/30/2021 12:44:05 PM Referred By: Hesham Parker Confirmed By:AVEL BUSCH MD
--- NOTE | 2021-01-29 10:02 | RAD_ITS ---
STUDY: X-RAY CHEST REASON FOR EXAM: Female, 65 years old. PRE OP TECHNIQUE: PA and lateral views of the chest. COMPARISON: Comparison is made with prior study dated 03/31/2015. FINDINGS: The lungs are clear and expanded. There is no demonstrated pleural abnormality. Normal size heart. Normal mediastinum and giulia. Normal visualized pulmonary arteries. Normal visualized aortic arch and descending thoracic aorta. There are diffuse degenerative changes of the visualized thoracic spine. Normal visualized ribs, clavicles, and shoulders. There is no demonstrated abnormality of the visualized soft tissue structures of the upper abdomen. RAD/Chest PA and Lateral IMPRESSION: Normal x-ray examination of the chest. Electronically Signed: Eliezer Branch MD at 10:24 EST , Service support ,
[2021-01-29 10:09] LABS: Absolute Lymphocyte Count 1.65 X10^3/uL (0.83-4.51); Absolute Neutrophil Count 3.4 X10^3/uL (2.0-7.7); Basophil# 0.05 X10^3/uL; Basophil% 0.9 % (0-1); Eosinophils% 5.1 % (0-5); Hematocrit 41.8 % (37-47); Hemoglobin 13.5 g/dL (12.0-15.0); Lymphocyte # 1.65 X10^3/ul (0.83-4.51); Lymphocyte % 28.2 % (19-41); Mean Corp Hgb Conc 32.3 g/dL (32-36); Mean Corpuscular Hgb 29.5 pg (27.0-32.0); Mean Corpuscular Volume 91.5 fL (81-99); Mean Platelet Vol. 9.5 fl (6.2-12.0); Monocyte# 0.42 X10^3/uL; Monocyte% 7.2 % (0-10); NRBC Flagged by Analyzer 0 % (0-5); Neutrophil # 3.43 X10^3/uL (2.7-7.7); Neutrophil % 58.4 % (47-70); Platelet Count 220 K/mm3 (150-450); RBC Distribution Width CV 14.3 % (11.6-14.6); RBC Distribution Width SD 47.9 fl (35.1-43.9); Red Blood Count 4.57 M/mm3 (4.2-5.4); White Blood Count 5.9 K/mm3 (4.4-11.0)
[2021-01-29 10:36] LABS: Anion Gap 3 (5-15); BUN 17 mg/dL (7-18); BUN/Creat Ratio 17.5 RATIO (10-20); Calcium,Total 8.8 mg/dL (8.5-10.1); Chloride 109 mmol/L (98-107); Creatinine, Serum 0.97 mg/dL (0.55-1.02); EST Glomerular Filtration Rate 61 mL/min (>60); Est Glom Filt Rate - Afr Amer 73 mL/min (>60); Glucose 93 mg/dL (74-106); Potassium 3.9 mmol/L (3.5-5.1); Sodium Level 142 mmol/L (136-145)
== END ==
PROVIDERS: PCP Family Medicine; Referring Provider Student in an Organized Health Care Education/Training Program; Visit Provider Student in an Organized Health Care Education/Training Program
DX: Z01.818 Encounter for other preprocedural examination (principal)
CPT/HCPCS: 36415; 71046; 80048; 85025; 93005

== ENCOUNTER 2021-03-03 10:00 | Outpatient (RCR) | payer MEDICARE, OTHER, SELFPAY ==
--- NOTE | 2021-02-19 13:15 | HP.OTEVAL ---
Patient's Visit Information JOSHUA NOGUEIRA is a 65 year old F, referred to Occupational Therapy by Dr. Hesham Parker, DO, with a diagnosis of right RF Dupuytrens contracture. Date of Evaluation: 02/19/21 Occupational Therapist: Savana Mejia, ELISABET/Dmitry, CHT - Subjective This 65 year old female was seen for OT eval with dx of Dupuytren's contracture- pt states she has had the contracture for a few years- pt states she had issues with increase flexion in a short period of time so she decided to have sx. pt underwent sx. pt is left handed- pt limited with use of right hand with ADls- pts dtr lives with her- pt is doing most tasks one handed. - Pain right hand 0 Pain Intensity Range: 0, 1 - ROM MP: right RF +5/45 PIP: right RF -15/70 DIP: right RF 0/20 ROM Comments: pt incision clean- dry - Strength Strength Comments: will test later date - Sensation Sensation Comments: denies - Quick DASH-Disab of Arm,Shoulder& Hand Quick DASH Score: 50.0000 - Goals Comment: Dupuytren's release Goal:Daily scar massage when approriate: Yes Goal:ROM equal to unaffected hand: Yes Goal:Impersonator Character/Pinch strength at least 75% of unaffected hand: Yes Goal:No pain with affected hand use: Yes Goal:Full use of affected hand in daily activities including: Yes Goal:Decrease scar hypersensitivity: Yes Comment: orthosis use Other Goal: pt will demo understanding of using custom orthosis for night use. - Rehabilitation General Assessment: Pt arrives s/p 1 week and 2 days from a right RF partial palmar fasciectomy. pt is sx splint and in need of custom orthosis. pt demo limited ROM of right RF and limited use of right UE as non-weight bearing until incision is healed. pt demo need for skilled OT services 1-2x week for 3 weeks to ensure pt has return of her ROM- orthosis is fitting well and pt has returned to her PLOF. Therapist erna. custom orthosis for Paddle splint for night use- pt demo IND doffing and donning of orthosis. pt agree with POC. Rehabilitation Potential: Excellent - Anticipated Interventions A/AAROM/PROM, Strengthening, Scar Care, Wound Care, Orthoses, Home Program - Visit Plan Frequency: 1-2x /Week Duration: 3 Weeks TEXT: Thank you for the opportunity to evaluate your patient. For Medicare and Medicare HMO plans, please review the plan of care and approve it. It will need to be FAXED BACK to us at [phone] for Medicare purposes. Please let me know if there are questions or concerns regarding this plan of care. Physician Signature: Date:
--- NOTE | 2021-06-29 11:34 | HP.OTDCSUM_ITS ---
It has been my pleasure to treat JOSHUA NOGUEIRA under orders from Dr. Hesham Parker DO, for the diagnosis of right RF Dupuytrens contracture for a total of 4 visit(s). Please see the following information for a summary of their discharge status. Objective/Function: MP . PIP -. DIP 0 Patient Goals: Use Hand/Wrist/Arm Normally Again, Increase ROM Goal:Daily scar massage when approriate: Yes Goal:ROM equal to unaffected hand: Yes Goal:Link Wire Fabric Machine Tender/Pinch strength at least 75% of unaffected hand: Yes Goal:No pain with affected hand use: Yes Goal:Full use of affected hand in daily activities including: Yes Goal:Decrease scar hypersensitivity: Yes Other Goal: pt will demo understanding of using custom orthosis for night use. Plan: D/C If there are questions or concerns regarding this patient's occupational therapy, please fell free to call me at [phone]. Thank you for the referral of this patient. Sincerely, Savana Mejia, OTR/L, CHT
== END 2021-03-03 19:00 | disposition home or self-care (01) ==
LOC: OT 10:00
PROVIDERS: PCP Family Medicine; Referring Provider Student in an Organized Health Care Education/Training Program; Visit Provider Student in an Organized Health Care Education/Training Program
DX: M72.0 Palmar fascial fibromatosis [Dupuytren] (principal)
CPT/HCPCS: 97140; 97166; 97760

== ENCOUNTER 2021-10-05 10:00 | Outpatient (RCR) | payer MEDICARE, OTHER, SELFPAY ==
--- NOTE | 2021-08-19 13:16 | HP.OTEVAL_ITS ---
Patient's Visit Information JOSHUA NOGUEIRA is a 66 year old F, referred to Occupational Therapy by Dr. Hesham Parker DO, with a diagnosis of displaced fracture of middle phalanx R 5th digit. Date of Evaluation: Occupational Therapist: Doug Camara - Subjective Pt reports having a fall in May. Xray revealed fracture at middle phalanx. Saw recently approx 2 weeks and Xray showed no further fractures and bone being healed. Pt reports not being able to bend it, and she has pain when bumping or trying to use it. - Pain R 5th digit 1 Pain Intensity Range: 4 - Objective Pt reports she is L hand dominant. - ROM MP: R 5th digit: AROM, 0 ext to 15 flex PIP: R 5th digit: AROM, -15 ext to 40 flex ROM Comments: L hand dominant; RUE thumb and 1st to 4th digits WFL - Strength Tire Builder Operator: R- 18#, L- 50# Lateral Pinch: R- 12#, L- 14# Tripod Pinch: R- 8#, L- 10# Tip-to-Tip Pinch: R- 6#, L- 8# Strength Comments: BUE MMT WFL - Quick DASH-Disab of Arm,Shoulder& Hand Quick DASH Score: 29.5450 - Goals Goal:: Pt will increase R package delivery driver strength by 10-15# by discharge. Goal:: Pt will increase AROM R 5th PIP flexion by 10 degrees by discharge. Goal:: Pt will be educated on joint protection techniques by discharge. Goal:: Pt will be IND with HEP upon discharge. - Rehabilitation General Assessment: Assessed AROM of BUEs and R 5th digit. Educated and issued pt HEP, and pt verbalized/demonstrated understanding with plan. Rehabilitation Potential: Good - Anticipated Interventions A/AAROM/PROM, Strengthening, Massage, Desensitization, Joint Protection/Energy Conservation, Fine Motor Coord/Kevan, Home Program - Visit Plan Frequency: 2x /Week Duration: 3 Weeks TEXT: Thank you for the opportunity to evaluate your patient. For Medicare and Medicare HMO plans, please review the plan of care and approve it. It will need to be FAXED BACK to us at [phone] for Medicare purposes. Please let me know if there are questions or concerns regarding this plan of care. Physician Signature: Date:
--- NOTE | 2021-10-05 10:44 | HP.OTREVAL ---
Dr. Hesham Parker, DO, It has been my pleasure to treat JOSHUA NOGUEIRA over the last 9 visits for . Please see the progress note below for an update on the occupational therapy plan of care! Subjective: pt arrives states she is doing better hand using her hand more- Objective/Function: left LF PIP -15/80*. therapist able to get pt to PIP flex at 85*. advised pt to continue working on end range motion to full composite fist. Plan Plan: home program- end range stretch and return to use of hand- Goals - Goals Patient Goals: Regain Mobility, Regain Strength, Decrease Swelling/Stiffness, Improve Fine Motor Skills, Increase ROM Goal:: Pt will increase R inspector multifocal lens strength by 10-15# by discharge. Goal:: Pt will increase AROM R 5th PIP flexion by 10 degrees by discharge. Goal:: Pt will be educated on joint protection techniques by discharge. Goal:: Pt will be IND with HEP upon discharge. Anticipated Interventions Anticipated Interventions: A/AAROM/PROM, Strengthening, Massage, Desensitization, Joint Protection/Energy Conservation, Fine Motor Coord/Kevan, Home Program Please do not hesitate to contact me at [phone] by phone or if you have questions or concerns regarding this new plan of care! Sincerely, Savana Mejia OTR/L, CHT
--- NOTE | 2022-01-26 14:20 | HP.OTDCSUM ---
It has been my pleasure to treat JOSHUA NOGUEIRA under orders from Dr. Hesham Parker DO, for the diagnosis of for a total of 9 visit(s). Please see the following information for a summary of their discharge status. % Improvement: 70 Objective/Function: left LF PIP -15/80*. therapist able to get pt to PIP flex at 85*. advised pt to continue working on end range motion to full composite fist. Patient Goals: Regain Mobility, Regain Strength, Decrease Swelling/Stiffness, Improve Fine Motor Skills, Increase ROM Goal:: Pt will increase R cloth desizing range tender strength by 10-15# by discharge. Goal:: Pt will increase AROM R 5th PIP flexion by 10 degrees by discharge. Goal:: Pt will be educated on joint protection techniques by discharge. Goal:: Pt will be IND with HEP upon discharge. Plan: home program- end range stretch and return to use of hand- If there are questions or concerns regarding this patient's occupational therapy, please fell free to call me at [phone]. Thank you for the referral of this patient. Sincerely, Savana Mejia, OTR/L, CHT
== END 2021-10-05 19:00 | disposition home or self-care (01) ==
LOC: OT 10:00
PROVIDERS: PCP Family Medicine; Referring Provider Student in an Organized Health Care Education/Training Program; Visit Provider Student in an Organized Health Care Education/Training Program
DX: S62.626D Displaced fracture of middle phalanx of right little finger, subsequent encounter for fracture with routine healing (principal)
CPT/HCPCS: 97110; 97140; 97166; 97530

== ENCOUNTER → 2021-10-12 | Outpatient (CLI) | payer MEDICARE, OTHER, SELFPAY ==
[2021-10-12 10:37] LABS: Erythrocyte Sedimentation Rate 16 mm/hr (0-30)
[2021-10-12 10:42] LABS: Absolute Lymphocyte Count 1.62 X10^3/uL (0.83-4.51); Absolute Neutrophil Count 2.7 X10^3/uL (2.0-7.7); Basophil# 0.05 X10^3/uL; Eosinophil# 0.34 X10^3/uL; Eosinophils% 6.6 % (0-5); Hematocrit 42.1 % (37-47); Hemoglobin 13.9 g/dL (12.0-15.0); Lymphocyte # 1.62 X10^3/ul (0.83-4.51); Lymphocyte % 31.6 % (19-41); Mean Corpuscular Hgb 30.2 pg (27.0-32.0); Mean Corpuscular Volume 91.3 fL (81-99); Mean Platelet Vol. 9.8 fl (6.2-12.0); Monocyte# 0.42 X10^3/uL; Monocyte% 8.2 % (0-10); NRBC Flagged by Analyzer 0 % (0-5); Neutrophil # 2.68 X10^3/uL (2.7-7.7); Neutrophil % 52.4 % (47-70); Platelet Count 233 K/mm3 (150-450); RBC Distribution Width CV 13.7 % (11.6-14.6); RBC Distribution Width SD 46.9 fl (35.1-43.9); Red Blood Count 4.61 M/mm3 (4.2-5.4); White Blood Count 5.1 K/mm3 (4.4-11.0)
[2021-10-12 11:07] LABS: ALB/GLOB Ratio 0.9 RATIO (0.9-2.4); AST(SGOT) 17 U/L (15-37); Alanine Aminotransfer ALT/SGPT 17 U/L (13-56); Albumin, Serum 3.5 g/dL (3.2-5.0); Alkaline Phosphatase 53 U/L (45-117); Anion Gap 6 (5-15); BUN 15 mg/dL (7-18); BUN/Creat Ratio 16.3 RATIO (10-20); Calcium,Total 8.4 mg/dL (8.5-10.1); Chloride 108 mmol/L (98-107); Creatinine, Serum 0.92 mg/dL (0.55-1.02); EST Glomerular Filtration Rate 65 mL/min (>60); Est Glom Filt Rate - Afr Amer 78 mL/min (>60); Globulin 3.9 g/dL (2.2-4.2); Glucose 98 mg/dL (74-106); Potassium 3.9 mmol/L (3.5-5.1); Protein, Total 7.4 g/dL (6.4-8.2); Sodium Level 142 mmol/L (136-145); Thyroid Stim Hormone (TSH) 1.23 uIU/mL (0.358-3.74)
== END | disposition home or self-care (01) ==
LOC: LAB 09:43
PROVIDERS: PCP Family Medicine; Referring Provider Family Medicine; Visit Provider Family Medicine
DX: R53.83 Other fatigue (principal); R42 Dizziness and giddiness
CPT/HCPCS: 36415; 80053; 84443; 85025; 85652

== ENCOUNTER → 2022-03-04 | Outpatient (CLI) | payer MEDICARE, OTHER, SELFPAY ==
--- NOTE | 2022-03-04 10:30 | LES_PTH ---
PATIENT: JOSHUA NOGUEIRA LOC: [facility] U#:[id number] AGE/SX: 66/F ROOM: RE03/04/[address]: Dr. Rigo Crum DO : 1955 BED: DIS: 03/04/2022 SPEC #: [id number] RECD: 03/04/22 12:05 STATUS: ANGELES REBasilio #: [id number] ELDER: 03/04/22 10:[address]: Rigo Crum DEPT: SURGICAL PATHOLOGY RECD BY: Tiffany Johnson Tissues: Skin of forearm, NOS Procedures: Surgery Specimen Level IV HEADER OPERATION: Excision right forearm PRE-OP DIAGNOSIS: Rapidly growing red forearm skin lesion, favor hemangioma TISSUE SUBMITTED: Right forearm MICROSCOPIC DIAGNOSIS Skin lesion of right forearm, biopsy: Capillary hemangioma. Solar elastosis. AM:velia 03/05/2022 MICROSCOPIC DESCRIPTION Slides are reviewed. GROSS DESCRIPTION Received in fixative is one container labeled with the patient's name and designated arm. The specimen consists of a diggs-white skin ellipse measuring 1.5 x 0.5 cm and up to 0.5 cm in thickness. A raised, diggs-pink lesion is noted on the surface measuring 0.6 x 0.5 cm. The specimen is inked, serially sectioned and submitted entirely in one cassette. / SJ:rg 03/04/2022 TC:[address] [facility]: [id number]
== END | disposition home or self-care (01) ==
LOC: LABSPEC 11:16
PROVIDERS: PCP Family Medicine; Visit Provider Family Medicine
DX: D18.01 Hemangioma of skin and subcutaneous tissue (principal); L57.8 Other skin changes due to chronic exposure to nonionizing radiation
CPT/HCPCS: 88305

== ENCOUNTER → 2022-10-27 | Outpatient (CLI) | payer MEDICARE, OTHER, SELFPAY ==
--- NOTE | 2022-10-27 10:38 | RAD_ITS ---
STUDY: X-RAY - CERVICAL SPINE REASON FOR EXAM: Female, 67 years old. Radiculopathy. TECHNIQUE: 5 view(s) of the cervical spine were obtained. C1 through upper border of C7 identified on the lateral view. COMPARISON: None FINDINGS: Mild osteopenia. Normal anterior atlantoaxial articulation. Normal odontoid process. Normal cervical lordosis. Mild uncovertebral and facet sclerosis. Normal disc space heights. Normal visualized intervertebral neuroforamina. Normal soft tissues. RAD/Cerv Spine 4 or 5 Views IMPRESSION: Mild uncovertebral and facet sclerosis. No other abnormality. Electronically Signed: Hector Pollard MD at 13:01 EDT ,
== END | disposition home or self-care (01) ==
LOC: RAD 10:35
PROVIDERS: PCP Family Medicine; Referring Provider Chiropractor; Visit Provider Chiropractor
DX: M54.12 Radiculopathy, cervical region (principal)
CPT/HCPCS: 72050

== ENCOUNTER 2022-12-03 10:30 | Outpatient (RCR) | payer MEDICARE, OTHER, SELFPAY ==
--- NOTE | 2022-11-03 13:57 | HP.PTEVAL ---
Patient's Visit Information Visit Information Visit Information: JOSHUA NOGUEIRA is a 67 year old F referred to Physical Therapy by Dr. Rigo Crum, DO with a diagnosis of CERVICAL RADICULOPATHY WITH R UPPER BACK TRIGGER POINTS. Date of Evaluation: 11/03/22 Physical Therapist: Yolette Cornejo PT, Cert MDT Visit Plan Frequency: 2-3x /Week Duration: 4-6 Weeks Plan: BEGIN WITH GENTLE CERVICAL ISOMETRICS WITH NEUTRAL SPINE TOLERATED. AVOID PERIPHERALIZATION OF SX'S. REFER BACK TO PCP IF SX'S WORSEN. US, STM, MH, POSTURE CORRECTION/STRENGTHENING, INSTRUCTION IN APPROPRIATE BODY MECHANICS AND ACTIVITY MODIFICATIONS. ZACH UE ROM, STRETCHING AND STRENGTHENING. HEP INSTRUCTION. 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 Disability: NO Present symptoms: R NECK PAIN. R SHOULDER PAIN, R COLLAR BONE PAIN AND PAIN DOWN R ARM INTO ELBOW. NUMBNESS AND TINGLING ALL THE WAY DOWN R UE TO INSIDE OF R THUMB. PATIENT DENIES UPPER BACK AND SHOULDER BLADE PAIN. NO L UE SX'S. HEADACHES. Present since: ABOUT 3 WKS AGO Pain Scale: Worst - 8/10 Least - 3/10 Currently: 4/10 Commenced as a result of: NO APPARENT REASON. Symptoms at onset: PAIN DOWN R ARM Worse: RAISING R OR LEFT ARM, BENDING OVER, SOMETIMES NOTHING, LIFTING, DOING HAIR, PUTTING SHIRT ON Better: HOLDING R ARM CLOSE TO BODY, ICE ON R SHLD, NEWLY PRESCRIBED MEDICATION Disturbed sleep: YES Previous history/Previous treatment: UNREMARKABLE. NO NECK SURGERY. NO R SHLD SX. NO NECK OR SHLD INJECTIONS PRIOR TO THIS EPISODE. NO NECK HISTORY PRIOR TO THIS EPISODE BUT DID FALL DOWN STEPS YEARS AGO AND HURT R SHLD. This episode: TRIGGER POINT INJECTIONS R UPPER BACK 2 DAYS AGO - HELPED PER PATIENT REPORT. CHIROPRACTIC X 4 VISITS FOR ADJUSTMENTS AND ELECTRICAL STIM PRIOR TO GOING TO DR. CRUM WITH NE. MEDICINE. Dizziness: NO Tinnitus: CHRONIC Nausea: NO Shortness of Breath: NO Difficulty Swallowing: NO Gait: NORMAL Accidents: NO Unexplained weight loss: NO Imaging: RECENT NECK X-RAYS SHOWING A LITTLE BIT OF ARTHRITIS AND OSTEOPENIA PER PATIENT REPORT. PMH/Recent major surgery: HYPOTHYROIDISM, ANXIETY. OTHER: PATIENT REPORTS SHE WENT [facility] DIVING AUGUST 19TH 2023 AND SHE DIDN'T FEEL ANY PAIN AT THE TIME. Objective Objective: Sitting Posture/Standing Posture: FAIR. FH. RSH'S. NO TORTICOLIS. Active Correction of posture: NE Other Observations: INDEP GAIT AND TRANSFERS Sensory deficit: ZACH UE LIGHT TOUCH SENSATION IS GROSSLY INTACT AND SYMMETRICAL ROM deficit: R ARM ELEVATION TO 110 DEG AND L 141 DEG. LIMITED R SHLD IR AND ER WHICH PATIENT RELATES TO OLD INJURY. FULL ZACH ELBOW, FOREARM, WRIST AND HAND ROM. Motor deficit: L HAND DOMINANT WITH A L VICE PRESIDENT QUALITY IMPROVEMENT STRENGTH OF 35 LBS AND R 30 LBS. R SHLD 2+/5, ELBOW 4/5. L SHLD 3-/5, ELBOW 5/5. Reflexes: UNABLE TO ELICIT R UE DTR'S. L UE 2/3. Dural Signs: POSITIVE R UE. Cervical Mvmt Loss: Flex: MIN Pro: MIN Ext: CINTIA Ret: CINTIA RSB: MOD LSB: MOD R Rot: MOD L Rot: MOD PATIENT C/O INCREASED NECK PAIN WITH CERVICAL FLEX AND PROTRACTION TESTING. PATIENT C/O SHOOTING PAINS DOWN RIGHT UE WITH CERVICAL ROM TESTING INTO EXTENSION, RETRACTION, ZACH SB AND R ROTATION. L ROTATION HAS NO EFFECT. Postural strength: FAIR. Palpation: TREATMENT: NEUROMUSCULAR REEDUCATION - RETRAINING OF MVMT AND POSTURE FOR SITTING AND STANDING ACTIVITIES. INSTRUCTION IN TABLE WALK AWAYS FOR GENTLE SHLD PASSIVE FLEXION TO HELP MAINTAIN SHLD ROM - KEEPING NECK IN NEUTRAL POSITION. Balance/Special Test Scores Oswestry Neck Score: 21 Goals Goal 1:: DECREASE C/O NECK AND R UE SX'S. Goal Time Frame: 4-6 Weeks Goal 2:: IMPROVE PERSONAL CARE, LIFTING, READING, SLEEP, WORK, DRIVING AND RECREATIONAL FUNCTION Goal Time Frame: 4-6 Weeks Goal 3:: INSTRUCT IN PROPHYLAXIS Goal Time Frame: 4-6 Weeks Anticipated Interventions Patient/Client Instruction: Educate patient on: Condition, Plan of Care and Risk Factors For the Purpose of:: To improve self management Therapeutic Exercise to Include: Strength training, Body mechanics, Postural training, Flexibilty training, Neuromotor development and Scapular Strength/Stabilization For the Purpose of:: To decrease pain, To increase ROM, To improve muscle performance and motor function, To increase tolerance to activity/condition/position and To improve ability of physical actions for home/community/work/leisure Manual Therapy Techniques to Include: Soft tissue mobilization For the Purpose of:: To decrease pain and To improve nutrient delivery to tissue Thermo therapy (hot pack): Yes Ultrasound (thermal/non thermal): Yes For the Purpose of:: To decrease pain and To improve nutrient delivery to tissue Text: Thank you for the opportunity to evaluate your patient. For Medicare and Medicare HMO plans, please review the plan of care and approve it. It will need to be FAXED BACK to us at [phone] for Medicare purposes. For Medicare only, by signing this I certify the plan of care. Please let me know if there are questions or concerns regarding this plan of care. Physician Signature: Date:
--- NOTE | 2022-12-03 11:28 | HP.PTREVAL_ITS ---
Re-Evaluation Intro: Dr. Rigo Crum, DO, It has been my pleasure to treat JOSHUA NOGUEIRA over the last 13 visits for CERVICAL RADICULOPATHY WITH R UPPER BACK TRIGGER POINTS. Please see the progress note below for an update on the physical therapy plan of care! Subjective Subjective: PATIENT REPORTS SHE SAW DR. MITCHELL LAST WEEK AND MRI PENDING NEXT TUESDAY WITH RESULTS FOLLOW-UP TUESDAY. SHE REPORTS DR. MITCHELL THINKS SHE MIGHT HAVE A HNP BUT HE WANTS TO SEE THE MRI. SHE REPORTS SHE HAS CONSTANT TINGLING IN HER ENTIRE RIGHT UE AND THE ZINGERS ARE INTERMITTENT. SHE REPORTS CONSTANT NECK PAIN. THE PAIN AT THE BOTTOM OF HER L SHLD BLADE IS STILL THERE AND IS CONSTANT - SHE REPORTS DR. MITCHELL IS AWARE OF THIS PAIN TOO. PATIENT REPORTS NOW THAT THE ZINGERS ARE LESS SHE FEELS MORE LIKE DOING THINGS AND SHE RELATES THE IMPROVEMENT TO THE PT TREATMENTS. NOT TAKING ANY PRESCRIPTION PAIN MEDICINE. Objective Objective/Function: PATIENT WAS SEEN TODAY FOR RE-ASSESSMENT OF PROGRESS TOWARD THE SET PT GOALS AND THE NEED FOR FURTHER PHYSICAL THERAPY VS READINESS FOR DISCHARGE. UPON EXAM TODAY PATIENT IS REPORTING LESS FREQUENT AND SEVERE PAIN IN HER R UE HOWEVER SHE HAS CONSTANT R UE TINGLING IN THE ENTIRE UE. SHE DEMO'S A LITTLE BIT OF INCREASED ZACH UE ROM AND STRENGTH BUT HER NECK ROM HAS DECREASED AND HER R UE SX'S ARE EASILY PROVOKED WITH NECK ROM TESTING. Sensory deficit: ZACH UE LIGHT TOUCH SENSATION IS GROSSLY INTACT AND SYMMETRICAL ROM deficit: R ARM ELEVATION TO 121 DEG AND L 150 DEG. LIMITED R SHLD IR AND ER WHICH PATIENT RELATES TO OLD INJURY. FULL ZACH ELBOW, FOREARM, WRIST AND HAND ROM. PATIENT C/O R SHLD PAIN WITH R SHLD TESTING AND NECK PAIN WITH L SHLD TESTING. Motor deficit: L HAND DOMINANT WITH A L ROTARY DERRICK OPERATOR STRENGTH OF 40 LBS AND R 34 LBS. R SHLD 3-/5, ELBOW 4+/5. L SHLD 4-/5, ELBOW 5/5. Reflexes: UNABLE TO ELICIT R UE DTR'S. L UE 2/3. Dural Signs: POSITIVE R UE. Cervical Mvmt Loss: Flex: MOD Pro: MIN Ext: CINTIA Ret: CINTIA RSB: MOD LSB: MOD R Rot: MOD L Rot: MOD PATIENT C/O INCREASED NECK PAIN WITH CERVICAL FLEX AND PROTRACTION TESTING. PATIENT C/O SHOOTING PAINS DOWN RIGHT UE WITH CERVICAL ROM TESTING INTO EXTENSION, RETRACTION, ZACH SB AND R ROTATION. L ROTATION PROVOKES INCREASED L UE TINGLING NOW TOO. ENCOURAGED PATIENT TO CONTINUE TO TRY TO AVOID POSITIONS AND ACTIVITIES THAT INCREASE NECK AND UE SX'S. ALSO ENCOURAGED PATIENT TO CONTINUE HOME INSTRUCTIONS GIVEN TOLERATED WHILE WAITING FOR MRI AND RESULTS. WILL HOLD PT UNTIL THEN - PATIENT AGREEABLE. Plan Plan Plan: FOLLOW UP APPROPRIATE AFTER MRI AND RESULTS. PATIENT AGREEABLE. Balance/Gait/Functional tests Balance/Special Test Scores Oswestry Neck Score: 18 Goals Goals Goal 1:: DECREASE C/O NECK AND R UE SX'S. Goal Time Frame: 4-6 Weeks Goal Progress: MINIMAL Goal 2:: IMPROVE PERSONAL CARE, LIFTING, READING, SLEEP, WORK, DRIVING AND RECREATIONAL FUNCTION Goal Time Frame: 4-6 Weeks Goal Progress: MINIMAL Goal 3:: INSTRUCT IN PROPHYLAXIS Goal Time Frame: 4-6 Weeks Goal Progress: MINIMAL Anticipated Interventions Anticipated Interventions Patient/Client Instruction: Educate patient on: Condition, Plan of Care and Risk Factors For the Purpose of:: To improve self management Therapeutic Exercise to Include: Strength training, Body mechanics, Postural training, Flexibilty training, Neuromotor development and Scapular Strength/Stabilization For the Purpose of:: To decrease pain, To increase ROM, To improve muscle performance and motor function, To increase tolerance to activity/condition/position and To improve ability of physical actions for home/community/work/leisure Manual Therapy Techniques to Include: Soft tissue mobilization For the Purpose of:: To decrease pain and To improve nutrient delivery to tissue Thermo therapy (hot pack): Yes Ultrasound (thermal/non thermal): Yes For the Purpose of:: To decrease pain and To improve nutrient delivery to tissue Re-Evaluation Ending Re-evaluation ending: Please do not hesitate to contact me at [phone] by phone or if you have questions or concerns regarding this new plan of care! Sincerely, Yolette Cornejo, PT, Cert MDT
== END 2022-12-03 19:00 | disposition home or self-care (01) ==
LOC: PT 10:30
PROVIDERS: PCP Family Medicine; Referring Provider Family Medicine; Visit Provider Family Medicine
DX: M54.12 Radiculopathy, cervical region (principal)
CPT/HCPCS: 97035; 97112; 97140; 97162; 97164; 97530

== ENCOUNTER 2023-01-12 12:52 | Emergency (ER) | payer MEDICARE, OTHER, SELFPAY ==
[2023-01-12 12:52] VITALS: BP 157/90; PULSE 77; RESP 16; TEMP 36.6; O2SAT 98; BMI 27.2
--- NOTE | 2023-01-12 13:24 | EDS_ITS ---
HPI <SANJAY Cary - Last Filed: 01/12/23 14:07> History of Present Illness Chief Complaint: Other, Pain/Inj Narrative Narrative: Patient is a 67-year-old female with history of chronic neck pain with radicular pain hypothyroidism, patient does follow-up with Dr. Restrepo and is supposed to have surgery on her cervical spine on February 09, 2023. Patient states that she is having significant pain to the right shoulder that radiates down the right arm. She has had this before. She states that the Advil, gabapentin is not helping. She is here for evaluation. She denies any other injury or falls. [facility] <SANJAY Cary - Last Filed: 01/12/23 14:07> [facility] Medical History (Updated 01/12/23 @ 14:05 by SANJAY Cary) Fatigue Hypothyroidism Home Medications citalopram 10 mg tablet 10 mg PO DAILY 10/24/17 [History Last Taken Unknown] levothyroxine 75 mcg tablet 75 mcg PO DAILY #30 tabs 11/29/18 [History Last Taken Unknown] benzonatate 100 mg capsule 200 mg (2 x 100 mg) PO TID PRN cough #30 caps 12/30/22 [Rx Last Taken Unknown] ondansetron 4 mg disintegrating tablet 4 mg PO Q8H PRN PRN Nausea #10 tabs 01/12/23 [Rx Last Taken Unknown] oxycodone-acetaminophen 5 mg-325 mg tablet (Percocet) 1 tab PO Q8H PRN pain 3 days #12 tabs 01/12/23 [Rx Last Taken Unknown] prednisone 50 mg tablet 50 mg PO DAILY #5 tabs 01/12/23 [Rx Last Taken Unknown] Allergy/AdvReac Type Severity Reaction Status Date / Time latex Allergy Unknown Verified 01/12/23 12:55 oxycodone AdvReac Nausea/Vom/ Verified 01/12/23 12:55 Diarrhea Family History Other Cancer Heart disease Surgical History History of appendectomy History of hysterectomy History of tonsillectomy and adenoidectomy Hx of cholecystectomy Tumor of ovary Social History Smoking Status: Former smoker alcohol intake: current ROS <SANJAY Cary - Last Filed: 01/12/23 14:07> ROS ED ROS Narrative Constitutional: Negative for fever, chills, weight loss, weakness Eyes: Negative for vision loss, vision change, double vision ENT: Negative for any sore throat, ear pain, congestion Cardiovascular: Negative for any chest pain, tightness, palpitations Respiratory: Negative for any cough, sputum production, hemoptysis, dyspnea, dyspnea on exertion, orthopnea Gastrointestinal: Negative for any abdominal pain, nausea, vomiting, diarrhea, constipation, blood in stool, blood in vomit : Negative for any urinary frequency, dysuria, retention, blood in urine Muscle skeletal: Negative for any myalgias, arthralgias, back pain. Positive for shooting pain down the right arm, positive for neck pain Neurological: Negative for any headache, syncope, numbness or tingling, dizziness Skin: Negative for any rashes, lumps, itching, abrasions, lacerations Psychiatric: Negative for any depression, anxiety, stress, suicidal ideation, homicidal ideation Hematologic: Negative for any easy bruising, excessive bruising, easy bleeding Allergies: Negative for any eczema, hives, rash EXAM <SANJAY Cary - Last Filed: 01/12/23 14:07> Physical Exam Narrative Exam Narrative: Vital signs reviewed. Neck: Supple with no lymphadenopathy or tenderness. No signs of meningismus. Extremities: No peripheral edema, no signs of gross trauma or deformity. Active full range of motion of all extremities. Patient is full range of motion of the right arm. Patient states the shooting pain is sharp, aching and is nonstop. She has +2 pedal pulse. 5 out of 5 strength. Difficulty with any abduction abduction, she states this is chronic. Neuro: Cranial nerves II through XII intact, no focal neurological deficits. Skin: Clean dry and intact with no rash, purpura, petechiae, vesicles or pustu les. Backs/flank: No CVA tenderness, no midline spinal tenderness, no deformity. Psych: Normal mood and affect. No SI, HI or acute psychosis. Const Vital Signs: 01/12/23 12:52 01/12/23 13:11 Temperature 97.8 F Temperature Source Temporal Pulse Rate 77 Respiratory Rate 16 Respiratory Effort Normal Respiratory Pattern Normal Blood Pressure 157/90 H Blood Pressure Mean 112 Pulse Ox 98 Oxygen Delivery Method Room Air <Dr. Evgeny Contreras DO - Last Filed: 01/12/23 14:56> Physical Exam Const Vital Signs: 01/12/23 12:52 01/12/23 13:11 Temperature 97.8 F Temperature Source Temporal Pulse Rate 77 Respiratory Rate 16 Respiratory Effort Normal Respiratory Pattern Normal Blood Pressure 157/90 H Blood Pressure Mean 112 Pulse Ox 98 Oxygen Delivery Method Room Air [facility] <SANJAY Cary - Last Filed: 01/12/23 14:07> [facility] Treatment and Re-Evaluation :: Patient appears generally well, patient appears nontoxic, vital signs are stable. Patient presents to the emergency department for acute on chronic neck pain, that radiates down the right arm. Differential diagnosis includes right shoulder strain, cervical radiculopathy, neuropathy. Physical examination insistent with acute on chronic cervical radiculopathy. Patient will be given oral Zofran, 6 mg IM morphine. On reevaluation, the patient felt better. 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 Patient will follow-up with Dr. Pradhan as scheduled. At this time, patient be given a short course of Percocet, she also given nausea medicine for home. She instructed to perform her daily activities as tolerated. She is instructed return for any worsening symptoms, patient stable for discharge. <Dr. Evgeny Contreras DO - Last Filed: 01/12/23 14:56> [facility] Treatment and Re-Evaluation :: Patient appears generally well, patient appears nontoxic, vital signs are stable. Patient presents to the emergency department for acute on chronic neck pain, that radiates down the right arm. Differential diagnosis includes right shoulder strain, cervical radiculopathy, neuropathy. Physical examination insistent with acute on chronic cervical radiculopathy. Patient will be given oral Zofran, 6 mg IM morphine. On reevaluation, the patient felt better. 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 Patient will follow-up with Dr. Pradhan as scheduled. At this time, patient be given a short course of Percocet, she also given nausea medicine for home. She instructed to perform her daily activities as tolerated. She is instructed return for any worsening symptoms, patient stable for discharge. Attending note: Patient seen and evaluated with manufacturers agent. I perform my own [id number]-[id number] evaluation. I agree with the plan of work-up. Cervical radiculopathy right C6 since September. She sees Dr. Restrepo has planned surgery February 09. 2 weeks ago had injection by Dr. Vazquez, edition was on a course of steroids for bronchitis. Her symptoms were improving then however returned. No weakness. Patient is not a diabetic. Here with increasing pain. Patient treated with pain medicines in the ED that is improving. She failed gabapentin per her history. She does not pay pain prescriptions currently, did reach out to the pain clinic with her doctor being out of town, she is currently not under contract, they are okay with a short prescription of which 3-day course was given. She will follow-up as an outpatient with her plan procedure. She will be placed on another burst steroids to help with symptoms also. Discharge Plan Triage Chief Complaint: Other, Pain/Inj ED Midlevel Provider: Mahad Moy ED Provider: Evgeny Contreras Dx/Rx/DC Orders Clinical Impression: Acute shoulder pain, Cervical radiculopathy Instructions: Cervical Spine Tx, ED Back and Neck Pain, General Prescriptions: New oxycodone-acetaminophen [Percocet] 5-325 mg tablet 1 tab PO Q8H PRN (Reason: pain) 3 Days Qty: 12 0RF ondansetron 4 mg tablet,disintegrating 4 mg PO Q8H PRN PRN (Reason: Nausea) Qty: 10 0RF prednisone 50 mg tablet 50 mg PO DAILY Qty: 5 0RF No Action citalopram 10 mg tablet 10 mg PO DAILY levothyroxine 75 mcg tablet 75 mcg PO DAILY Qty: 30 Patient Comments: TAKE 1 TABLET BY MOUTH ONCE DAILY IN THE MORNING ON AN EMPTY STOMACH benzonatate 100 mg capsule 200 mg PO TID PRN (Reason: cough) Qty: 30 0RF Primary Care Provider: Rigo Crum Referrals: Rigo Crum DO [Primary Care Provider] - Activity Restrictions/Additional Instructions: Please keep your appointments as scheduled. Disposition Disposition: Home, Self Care Discharge Date/Time: 01/12/23 14:10
[2023-01-12] MEDS: Ondansetron ODT 4 MG Tablet PO (13:29)
[2023-01-12] MEDS: morphine 10 MG/ML Syringe 6 MG IM (13:30)
== END 2023-01-12 14:10 | disposition home or self-care (01) ==
LOC: ED 13:25
PROVIDERS: Emergency Provider Emergency Medicine; PCP Family Medicine; Visit Provider Emergency Medicine
DX: M54.12 Radiculopathy, cervical region (principal); M25.511 Pain in right shoulder; G89.29 Other chronic pain; E03.9 Hypothyroidism, unspecified; Z79.890 Hormone replacement therapy; Z79.899 Other long term (current) drug therapy; Z87.891 Personal history of nicotine dependence
CPT/HCPCS: 96372; 99283

== ENCOUNTER 2023-04-26 10:30 | Outpatient (RCR) | payer MEDICARE, OTHER, SELFPAY ==
--- NOTE | 2023-03-28 17:24 | HP.PTEVAL ---
Patient's Visit Information Visit Information Visit Information: JOSHUA NOGUEIRA is a 67 year old F referred to Physical Therapy by Dr. Oc Restrepo DO with a diagnosis of SPINAL STENOSIS,CERVICAL ,CERVICAL DISC DEGENERATION C5-6,SPONDYLOLISTHESIS. Date of Evaluation: 03/28/23 Physical Therapist: Jm Araya, PT, Cert MDT, OCS Visit Plan Frequency: 2-3x /Week Duration: 4-6 Weeks Plan: PRECUATION: LATEX ALLERGY PT INTERVENTIONS CERVICAL ROM , POSTURAL EX'S ,STRENGTHENING ,AND ENDURACE ACTIVITIES Subjective Subjective: This 67 y/o female presents to physical therapy with cervical fusion C5-6 anterior approach on Feb 09 at [facility] and d/c next day with [place] [employer] . Patient had to wear cervical collar 6weeks ,initially had 5# restriction . Patient seen last no restriction and x-rays looked but has not return to work .Tentative RTW possible April 16 . RTD 6 weeks. prior to surgery had PT wasn't helping and pain management with epidural injection. Prior to surgery severe pain right arm. Currently during well but up standing walking has some ache and HOLDER ~ 2hsr. Patient ahs mild paresthesia/tingling in thumb . Sleeping good . Aggravating factors driving and standing ache. Alleviating factors rest. Patient goals to return to work and and less pain. Patient condition affects QOL and function. 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 Neck: Pain Intensity (Out of 10): 1 Pain Intensity Range: 10 Objective Objective: POSTURE: mild forward posture PALAPTION: tender UT/levator NEURO: c/o mild paresthesia thumb right ,reflexes C5-6 ,1/3 C7 1/3 AROM: BUE WFL CERVICAL ROM: flexion mod loss ,rotation mod/severe loss ,lateral flexion mod/severe loss ,extension mod/severe MMT: grossly 4/5 except shoulders 4-/5 PROVIDER NETWORK MGR STRENGTH: right 45# ,left 40 # dynometer Special Tests C/S Radiculapathy - Left Upper limb tension test: Negative C/S Radiculapathy - Right Upper limb tension test: Negative C/S Radiculapathy - Valsalva: Negative Sharp Josi: Negative Vertebral Artery Test: Negative Alar Ligament Test: Negative Balance/Special Test Scores Oswestry Neck Score: 22 Goals Goal 1:: Patient to be I with HEP for cervical spine Goal Time Frame: 4-6 Weeks Goal 2:: Patient to demonstrate 70% improvement with increase function and less pain. Goal Time Frame: 4-6 Weeks Goal 3:: Patient to improve cervical ROM for function of recovery for driving and job demnads Goal Time Frame: 4-6 Weeks Goal 4:: Patient to RTW without limiations Goal Time Frame: 4-6 Weeks Goal 5:: Patient to improve neck oswestry score by 5 points to improve QOL and function Goal Time Frame: 4-6 Weeks Rehabilitation Potential Physical Therapy Diagnosis: This patient had s/p cervical fusion C5-6 Feb 09 with pain activity ,decrease cervical ROM ,weakness UE ,decrease postural for ADLS and RTW Rehabilitation Potential: Good Anticipated Interventions Patient/Client Instruction: Educate patient on: Condition and Plan of Care For the Purpose of:: To decrease pain, To increase ROM, To improve muscle performance and motor function, To improve ability to perform ADL's, To increase tolerance to activity/condition/position, To improve ability of physical actions for home/community/work/leisure, To improve gait and locomotor functions, To decrease soft tissue restriction, To increase flexibility/ROM and To reduce risk of recurrence Therapeutic Exercise to Include: Strength training, Endurance training, Postural training, Flexibilty training and Active ROM For the Purpose of:: To decrease pain, To increase ROM, To improve muscle performance and motor function, To improve ability to perform ADL's, To increase tolerance to activity/condition/position, To improve ability of physical actions for home/community/work/leisure, To improve health of tissue, To decrease soft tissue restriction, To increase flexibility/ROM, To reduce risk of recurrence, To prevent re-injury and Other Other: RTW Text: Thank you for the opportunity to evaluate your patient. For Medicare and Medicare HMO plans, please review the plan of care and approve it. It will need to be FAXED BACK to us at [phone] for Medicare purposes. For Medicare only, by signing this I certify the plan of care. Please let me know if there are questions or concerns regarding this plan of care. Physician Signature: Date:
--- NOTE | 2023-04-26 11:03 | HP.PTDCSUM ---
Discharge Summary D/C summary: It has been my pleasure to treat JOSHUA NOGUEIRA referred by Dr. Oc Restrepo DO, with the diagnosis of SPINAL STENOSIS,CERVICAL ,CERVICAL DISC DEGENERATION C5-6,SPONDYLOLISTHESIS for a total of 9 visit(s). Discharge Date: 04/26/23 Please see the following information for a summary of their discharge status. 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 Goal Progress: Goal Met Goal 3:: Patient to improve cervical ROM for function of recovery for driving and job demnads Goal Progress: Goal Met Goal 4:: Patient to RTW without limiations Goal Progress: Goal Met Goal 5:: Patient to improve neck oswestry score by 5 points to improve QOL and function Goal Progress: Goal Met Plan Plan: D/C to HEP D/C Information Discharge Comments: HEP d/c sentence: If there are questions or concerns regarding this patient's physical therapy, please feel free to call me at [phone]. Thank you for the referral of this patient. Sincerely, Jm Araya, PT, Cert MDT, OCS Balance/Gait/Functional tests Balance/Special Test Scores Oswestry Neck Score: 22 Improvement % Improvement: 90
== END 2023-04-26 19:00 | disposition home or self-care (01) ==
LOC: PT 10:30
PROVIDERS: PCP Family Medicine; Referring Provider Orthopaedic Surgery; Visit Provider Orthopaedic Surgery
DX: M48.02 Spinal stenosis, cervical region (principal); M43.12 Spondylolisthesis, cervical region; M50.322 Other cervical disc degeneration at C5-C6 level
CPT/HCPCS: 97110; 97162; 97530

== ENCOUNTER → 2023-06-22 | Outpatient (CLI) | payer MEDICARE, OTHER, SELFPAY ==
--- NOTE | 2023-06-22 | IMM_PTH ---
PATIENT: JOSHUA NOGUEIRA LOC: [facility] U#:[id number] AGE/SX: 67/F ROOM: RE06/22/[address]: Dr. Rigo Crum DO : 1955 BED: DIS: 06/22/2023 SPEC #: [id number] RECD: 06/23/23 11:44 STATUS: ANGELES REQ #: [id number] ELDER: 06/22/23 00:[address]: Rigo Crum DEPT: IMMUNOHISTOCHEMISTRY RECD BY: Nicholas Boyd Tissues: Skin of back, NOS Procedures: SMA (add) CD31 (add) CD34 (add) DESMIN (add) KI-67 (add) FACTOR VIII (add) MELAN-A (add) Vimentin (initial) S-100 (add) PHYSICIAN & INSTITUTION [address] [address] SPECIMEN INFORMATION: Tissue Source: Punch biopsy of left lower back Clinical Info: Irregular mole Specimen Number: [id number] CPT code: 56668,83134m6 METHODOLOGY: Deparaffinized sections of prefer/formalin-fixed tissue or PAP/DQ stained slides are incubated with monoclonal/polyclonal antibodies/oligonucleotide probes. Localization is made via biotin free immunoperoxidase method. Appropriate controls are performed and reacted as expected. Results on target cell population are indicated in the following table: RESULTS: ANTIBODY / CLONE RESULT Vimentin (V9) positive CD31 (JERICHO/70A) negative Factor VIII (R Ag) negative CD34 (QBEnd-10) positive, focal Actin (1A4) negative Desmin (CE-R-11) negative Melan A (A103) negative S-100 (4C4.9) negative Ki-67 (30-9) positive, low < 1% These tests were developed and their performance characteristics determined by [facility]. They may not have been cleared or approved by the U.S. Food and Drug Administration. The FDA has determined that such clearance or approval is not necessary. The above immunohistochemical/dualISH markers are ordered and reviewed by the Pathologist. INTERPRETATION: Skin of left lower back, punch biopsy: Consistent with dermatofibroma. NOE/ 06/23/23
--- NOTE | 2023-06-22 10:20 | TISS_PTH ---
PATIENT: JOSHUA NOGUEIRA LOC: [facility] U#:[id number] AGE/SX: 67/F ROOM: RE06/22/[address]: Dr. Rigo Crum DO : 1955 BED: DIS: 06/22/2023 SPEC #: [id number] RECD: 06/22/23 13:30 STATUS: ANGELES BRAEDEN #: [id number] ELDER: 06/22/23 10:[address]: Rigo Crum DEPT: SURGICAL PATHOLOGY RECD BY: Sony Oneill Tissues: Skin of back, NOS Procedures: Surgery Specimen Level IV HEADER OPERATION: Punch biopsy left low back PRE-OP DIAGNOSIS: Irregular mole TISSUE SUBMITTED: 3mm punch MICROSCOPIC DIAGNOSIS Left lower back lesion, punch biopsy: Consistent with dermatofibroma. See comment. NOE/ 06/23/23 COMMENT Immunohistochemistry ([id number]) supports the above diagnosis. MICROSCOPIC DESCRIPTION Slides are reviewed. GROSS DESCRIPTION Received is one container labeled with the patient's name and not further designated. The specimen consists of a punch biopsy of diggs-brown skin measuring 0.3cm in diameter and 0.1cm in depth. The entire specimen is submitted in one cassette. NOE/ 06/22/23 TC:1 CPT:60666
== END | disposition home or self-care (01) ==
PROVIDERS: PCP Family Medicine; Referring Provider Family Medicine; Visit Provider Family Medicine
DX: D23.5 Other benign neoplasm of skin of trunk (principal)
CPT/HCPCS: 88305; 88341; 88342

== ENCOUNTER → 2024-10-10 | Outpatient (CLI) | payer MEDICARE, OTHER, SELFPAY ==
--- NOTE | 2024-10-10 10:17 | BI_ITS ---
EXAM: SCRN MAMM (CAD)W/ALYSSA BILAT DATE: 10/10/2024 CLINICAL HISTORY: F, Age 69 y/o , SCREENING TECHNIQUE: SCRN MAMM (CAD)W/ALYSSA BILAT COMPARISON: Prior exam(s) dated January 13, 2021.. FINDINGS: TISSUE DENSITY: The breasts are almost entirely fatty. Bilateral Breast Mammographic Findings: No significant masses, calcifications or other abnormalities are identified. Stable small benign-appearing bilateral axillary lymph nodes. No suspicious masses, areas of developing architectural distortion, or suspicious calcifications. There has been no significant interval change. BI/SCRN MAMM (CAD)W/ALYSSA BILAT IMPRESSION: Stable examination. OVERALL FINAL ASSESSMENT BI-RADS 2: BENIGN RECOMMENDATION: Routine annual follow-up in 1 Year A letter with findings and recommendations will be mailed to the patient. Reading Location: [id number]
== END | disposition home or self-care (01) ==
LOC: OPBI 10:16
PROVIDERS: PCP Family Medicine; Referring Provider Family Medicine; Visit Provider Family Medicine
DX: Z12.31 Encounter for screening mammogram for malignant neoplasm of breast (principal)
CPT/HCPCS: 77063; 77067

== ENCOUNTER → 2024-10-25 | Outpatient (CLI) | payer MEDICARE, OTHER, SELFPAY ==
[2024-10-25 15:07] LABS: Hematocrit 40.7 % (37-47); Hemoglobin 13.4 g/dL (12.0-15.0); Immature Granulocytes Count 0.010 X10^3/uL (0.0-0.0); Mean Corp Hgb Conc 32.9 g/dL (32-36); Mean Corpuscular Volume 92.5 fL (81-99); Mean Platelet Vol. 10.5 fl (6.2-12.0); NRBC Flagged by Analyzer 0 % (0-5); Platelet Count 211 K/mm3 (150-450); RBC Distribution Width CV 14.6 % (11.6-14.6); RBC Distribution Width SD 49.6 fl (35.1-43.9); Red Blood Count 4.40 M/mm3 (4.2-5.4); White Blood Count 6.6 K/mm3 (4.4-11.0)
[2024-10-25 15:44] LABS: AST(SGOT) 20 U/L (<=31); Alanine Aminotransfer ALT/SGPT 12 U/L (<=34); Albumin, Serum 4.5 g/dL (3.4-4.8); Alkaline Phosphatase 48 U/L (35-104); Anion Gap 11 (5-15); BUN 11 mg/dL (4-19); BUN/Creat Ratio 14.0 RATIO (10-20); Calcium,Total 9.2 mg/dL (7.6-11.0); Carbon Dioxide 27.0 mmol/L (21.0-32.0); Chloride 104 mmol/L (98-108); Globulin 3.0 g/dL (2.2-4.2); Glucose 92 mg/dL (70-99); Potassium 4.2 mmol/L (3.3-5.1); Vitamin D,25 Hydroxy 28.7 ng/mL (30-100)
== END | disposition home or self-care (01) ==
LOC: BFHLAB 11:58
PROVIDERS: PCP Family Medicine; Visit Provider Family Medicine
DX: E06.3 Autoimmune thyroiditis (principal); M85.80 Other specified disorders of bone density and structure, unspecified site; E83.51 Hypocalcemia; J01.90 Acute sinusitis, unspecified
CPT/HCPCS: 36415; 80053; 82306; 84443; 85025

== ENCOUNTER → 2024-10-30 | Outpatient (CLI) | payer MEDICARE, OTHER, SELFPAY ==
--- NOTE | 2024-10-30 11:03 | BD_ITS ---
PROCEDURE: DEXA BONE DENSITY STUDY 10/30/2024 REASON FOR EXAM: F, age 69 y/o . Postmenopausal. TECHNIQUE: Procedure Code: BDDBD Modality: DX Procedure: DEXA BONE DENSITY STUDY COMPARISON: Prior study dated January 13, 2021. FINDINGS: BMD and T-SCORES Lumbar spine: 1.019 g/cm2, T-score -0.3 Levels: L1 through L4 Change from prior: Improvement of 4.9%. Left femoral neck: 0.635 g/cm2, T-score -1.9 Femoral neck comparison data not recommended for monitoring change. Left total hip: 0.840 g/cm2, T-score -0.8 Change from prior: Loss of 1.1%. Right femoral neck: 0.651 g/cm2, T-score -1.8 Femoral neck comparison data not recommended for monitoring change. Right total hip: 0.790 g/cm2, T-score -1.2 Change from prior: Loss of 9.1%. The World Health Organization has defined the following categories based on bone density: Normal bone density: T-score equal to or greater than -1.0 Osteopenia: T-score between -1.0 and -2.5 Osteoporosis: T-score equal to or less than -2.5 FRAX (or Comparable) Fracture Risk Assessment: 10 Year Probability of Fracture: Major Osteoporotic Fracture: 19% Hip Fracture: 6% (Note: FRAX is not to be reported in setting of normal range bone density, osteoporosis on DEXA, known history of osteoporosis, prior osteoporotic hip or vertebral fracture, or for any patient undergoing pharmacological treatment for bone loss.) The National Osteoporosis Foundation (NOF) recommends pharmacological treatment for patients with a FRAX 10-year risk of 3% or higher for a hip fracture, or 20% or higher for a major osteoporotic fracture, to prevent osteoporosis and reduce fracture risk. The patient does meet the pharmacological treatment recommendations for prevention of osteoporosis. BD/Dexa Bone Density Study IMPRESSION: OSTEOPENIA. Recommend follow-up as clinically warranted. Reading Location: [place] [address]
== END | disposition home or self-care (01) ==
LOC: OPBD 10:48
PROVIDERS: PCP Family Medicine; Referring Provider Family Medicine; Visit Provider Family Medicine
DX: M85.851 Other specified disorders of bone density and structure, right thigh (principal); M85.852 Other specified disorders of bone density and structure, left thigh; Z78.0 Asymptomatic menopausal state
CPT/HCPCS: 77080

== ENCOUNTER 2024-12-25 04:08 | Emergency (ER) | payer MEDICARE, OTHER, SELFPAY ==
[2024-12-25] VITALS (9 sets, daily range): BP systolic 131–202; BP diastolic 65–93; PULSE 71–77; RESP 12–18; TEMP 36.4–36.6; O2SAT 88–100; BMI 27.8
--- NOTE | 2024-12-25 04:28 | EX.ED.UPPERE ---
HPI History of Present Illness Chief Complaint: Upper Extremity Injury Informant: patient and EMS Narrative Narrative: Patient is a 69-year-old female who lives at home. She has a past medical history of hypothyroidism. She states she got up to use the bathroom and her feet simply "went out from under her". She states she fell landing on the floor which is carpet on top of hardwood and landed on her right side with her right arm being pushed into her chest. She denies striking her head or any loss of consciousness history of bleeding disorder or blood thinner use. She denies any loss of consciousness associated with the fall. She states she was only on the ground for a few minutes before she was able to contact EMS. She denies any other injury than the right arm. She states she has pain from the shoulder down to the elbow. She has concern for fracture and with this comes in for evaluation Patient reports she is left-hand dominant [facility] Medical History Allergic reaction Hypothyroidism Fatigue Home Medications Medication Instructions Recorded Last Taken Type citalopram 10 mg tablet 10 mg PO DAILY 10/24/17 Unknown History levothyroxine 75 mcg tablet 75 mcg PO DAILY #30 tabs 11/29/18 Unknown History diazepam 5 mg tablet (Valium) 5 mg PO TID PRN muscle spasm 7 12/25/24 Unknown Rx days #21 tabs hydrocodone-acetaminophen 5-325mg 1 tab PO Q6H PRN pain 7 days #28 12/25/24 Unknown Rx 5mg-325mg tabs Allergy/AdvReac Type Severity Reaction Status Date / Time latex Allergy Unknown Verified 12/25/24 04:10 oxycodone AdvReac Nausea/Vom/ Verified 12/25/24 04:10 Diarrhea Family History Other Cancer Heart disease Surgical History Tumor of ovary Hx of cholecystectomy History of hysterectomy History of tonsillectomy and adenoidectomy History of appendectomy Social History Smoking Status: Former smoker alcohol intake: current ROS ROS ED Constitutional Constitutional ED: Denies chills or fever(s) Eyes Eyes: Denies blurry vision or change in vision ENT ENT ED: Denies sore throat Cardiovascular Cardiovascular: Reports other Details: Negative syncope ; Denies chest pain, palpitations or racing heartbeat Respiratory/Chest Respiratory/Chest: Denies cough or dyspnea Gastrointestinal Gastrointestinal: Denies abdominal pain, diarrhea, nausea or vomiting Musculoskeletal Musculoskeletal: Reports other Details: Positive right shoulder/arm pain as well as positive right chest wall/rib pain ; Denies back pain or neck pain Integumentary Denies Abrasions or rash Neurologic Neurologic: Denies headache(s) or paresthesias Hematologic/Lymphatic Hematologic/Lymphatic: Denies easy bleeding or easy bruising EXAM Physical Exam Const Vital Signs: 12/25/24 04:10 12/25/24 04:20 Temperature 97.5 F L Temperature Source Oral Pulse Rate 71 Respiratory Rate 16 Blood Pressure 202/89 H 196/93 H Blood Pressure Mean 126 127 Pulse Ox 96 Oxygen Delivery Method Room Air Positive well nourished and well developed General Appearance ED: well developed HEENT HEENT Narrative: Normocephalic atraumatic Eyes PERRL and EOMs intact bilaterally Neck full ROM and supple Neck Narrative: No bony deformity or step-off of the cervical spine No midline tenderness to palpation Chest Wall Chest Narrative: There is pain on palpation along the right lateral chest wall/rib region 7-10 without bony deformity or crepitance No overlying abrasions or ecchymosis Resp normal respiratory effort and clear to auscultation bilaterally Resp Narrative: Breath sounds are diminished throughout but overall clear to auscultation without signs of respiratory distress Cardio regular rate and regular rhythm Rate: other Other Details: Radial and carotid pulses are equal and symmetric GI non-tender, non-distended and no masses GI Narrative: No voluntary guarding or rigidity or pulsatile mass No overlying abrasions or ecchymosis noted Auscultation: normoactive bowel sounds Palpation: soft Extremity Extremity Narrative: Pelvis is stable there is no shortening or external rotation of either lower extremity Patient can lift both legs and bend at the knees without difficulty or pain Right upper extremity is neurovascularly intact. There is soft tissue swelling essentially from the anterior lateral shoulder down to the mid humerus. There is diffuse pain with palpation. No obvious bony deformity or joint effusion. Negative sulcus sign. All compartments are soft and compressible going against compartment syndrome. Neuro oriented x3, CN's II-XII intact bilaterally and no sensory deficits noted Sensorium / Orientation: alert Psych mental status grossly normal Skin no rashes or lesions noted Skin Narrative: Soft tissue swelling of the right shoulder/humerus as documented above without ecchymosis abrasions or erythema MDM MDM MDM Narrative Medical decision making narrative: Patient reported a mechanical fall and therefore I felt no need for cardiac or syncope workup. She is not on a blood thinner she does not have a history of bleeding disorder nor did she strike her head or have loss of consciousness so my concern for a subarachnoid subdural hemorrhage is low and I feel no need for head CT. She has no midline neck discomfort and can move her neck in all directions so my concern for cervical compression fracture is low and there is no need for a cervical CT. in order to assess for shoulder dislocation versus clavicle fracture versus AC separation versus humeral fracture I did elect to perform a shoulder and humerus x-ray. Pelvis x-ray was obtained to rule out pubic rami fracture or femoral neck fracture and a chest x-ray was obtained to rule out pneumothorax or rib fracture. Imaging study showed a fracture through the surgical neck of the right humerus. This is consistent with her fall and pain. However she is closed and neurovascularly intact without findings of compartment syndrome so there is no need for emergent surgical intervention. I did discuss the case with orthopedic surgeon on-call Dr. Parker. He reviewed the x-rays and request that the patient be placed in a sling and swath. He agrees that as she is close neurovasc intact and without findings of compartment syndrome that there is no need for emergent orthopedic intervention. He states that she may require surgery if the bone does not improve in position on its own. However he will wait 5 to 7 days to further assess. The case was discussed with the patient and her family. At this time she has had improvement of her pain with the provided medication. She does live with one of her daughters who can help take care of her. The patient is left-hand dominant so therefore we will still be able to perform majority of her activities of daily living. Patient does not tolerate Percocet so therefore she will be given [place] and Valium as an off-label muscle relaxer. However as she is closed and neurovascularly intact and orthopedics confirms that there is no need for emergent surgical intervention she is otherwise safe for discharge. History & Record Review Discussion w/independent historian: EMS personnel, Patient and Family Radiography Diagnostic Testing: Chest x-ray as interpreted by the emergency medicine physician reveals no acute rib fracture or pneumothorax or infiltrate Pelvis x-ray as interpreted by the emergency medicine physician reveals no acute fracture or dislocation Right shoulder x-ray as interpreted by the emergency medicine physician reveals a fracture through the surgical neck of the humerus with 60-70% displacement Right humeral x-ray as interpreted by the emergency medicine system reveals a fracture of the surgical neck of the humerus with 60-70 send displaced. Management Discussion w/another healthcare provider: [employer] Discharge Plan Triage Chief Complaint: Upper Extremity Injury ED Provider: Judd Brown Dx/Rx/DC Orders Clinical Impression: Displaced fracture of proximal end of humerus, Accidental fall, Hypothyroidism Instructions: ED Fracture, Upper Extremity Prescriptions: New diazepam [Valium] 5 mg tablet 5 mg PO TID PRN (Reason: muscle spasm) 7 Days Qty: 21 0RF hydrocodone-acetaminophen 5-325 mg tablet 1 tab PO Q6H PRN (Reason: pain) 7 Days Qty: 28 0RF No Action citalopram 10 mg tablet 10 mg PO DAILY levothyroxine 75 mcg tablet 75 mcg PO DAILY Qty: 30 Patient Comments: TAKE 1 TABLET BY MOUTH ONCE DAILY IN THE MORNING ON AN EMPTY STOMACH Primary Care Provider: Rigo Crum Referrals: Rigo Crum DO [Primary Care Provider, Family Practice] Hesham Parker DO [Med Staff - Active Staff, Orthopedics] Activity Restrictions/Additional Instructions: Please continue to wear the sling and swath to help stabilize your humeral fracture. Sleep in a more of an upright position to allow gravity to pull the 2 bone fragments back into a normal alignment. Follow-up with Dr. Parker to discuss need for possible surgical intervention. Return to the ER should you have any further concerns Print Language: Luxembourgish
--- NOTE | 2024-12-25 04:45 | RAD_ITS ---
PROCEDURE: HUMERUS MIN 2 VIEWS 12/25/2024 REASON FOR EXAM: INJURY TECHNIQUE: Procedure Code: RADHUM Modality: DX Procedure: HUMERUS MIN 2 VIEWS Laterality: Right. COMPARISON: None. FINDINGS: Acute spiral displaced fracture of the humeral surgical neck. Mild osteopenia of the visualized bones. Degenerative joint disease. No dislocation is seen. No lytic or blastic bone lesion is noted. RAD/Humerus min 2 Views IMPRESSION: Acute spiral displaced fracture of the humeral surgical neck. Reading Location[facility]
--- NOTE | 2024-12-25 04:45 | RAD_ITS ---
PROCEDURE: CHEST 1 VIEW (PORTABLE) 12/25/2024 REASON FOR EXAM: PAIN TECHNIQUE: Frontal view of the chest. COMPARISON: None. FINDINGS: Unremarkable cervical fusion metallic hardware. The lungs are expanded. There is no demonstrated parenchymal abnormality. There is no demonstrated pleural abnormality. Enlarged cardiac silhouette. Normal mediastinum and giulia. Normal visualized pulmonary arteries. Atheromatous plaques of the visualized aortic arch and descending thoracic aorta. Diffuse spondylosis of the visualized thoracic spine. Normal visualized ribs, clavicles. Degenerative joint disease. There is no demonstrated abnormality of the visualized soft tissue structures of the upper abdomen. RAD/Chest 1 View (Portable) IMPRESSION: No evidence for acute abnormality. Reading Location: [facility]
--- NOTE | 2024-12-25 04:45 | RAD_ITS ---
PROCEDURE: SHOULDER MIN 2 VIEWS 12/25/2024 REASON FOR EXAM: INJURY TECHNIQUE: Procedure Code: RADSH Modality: DX Procedure: SHOULDER MIN 2 VIEWS Laterality: Right. COMPARISON: None. FINDINGS: Acute spiral displaced fracture of the humeral surgical neck. Mild osteopenia of the visualized bones. Degenerative joint disease. No other fracture or dislocation is seen. No lytic or blastic bone lesion is noted. RAD/Shoulder min 2 Views IMPRESSION: Acute spiral displaced fracture of the humeral surgical neck. [facility]
--- NOTE | 2024-12-25 04:45 | RAD_ITS ---
PROCEDURE: PELVIS 1 OR 2 VIEWS 12/25/2024 REASON FOR EXAM: FALL TECHNIQUE: Procedure Code: RADPEL Modality: DX Procedure: PELVIS 1 OR 2 VIEWS COMPARISON: None. FINDINGS: Moderate amount of fecal residue in the large bowels. Mild osteopenia of the visualized bones. Degenerative joint disease. No fracture or dislocation is seen. No lytic or blastic bone lesion is noted. RAD/Pelvis 1 or 2 Views IMPRESSION: No evidence for acute abnormality. Reading Location[facility] [id number]
[2024-12-25] MEDS: DiphenhydrAMINE 50 MG/ML Syringe 25 MG IV (05:09)
[2024-12-25] MEDS: HYDROmorphone 0.5 MG/0.5 ML SYRINGE IV (05:09)
--- OUTSIDE RECORDS SUMMARY | 2024-12-25 05:39 | XMS RPT_ITS | CCD ---
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 Agnes Crum Primary Care Provider [phone] Dr. Matt Layton Attending Provider Dr. Hesham Parker Referring Provider [phone] Agnes Crum Primary Care Provider [phone] Dr. Agnes Crum Referring Provider [phone] [place] Padilla Attending Provider DR AGNES CRUM DO A Primary Care Physician Dr. Agnes Crum Primary Care Provider [phone] Dr. Agnes Crum Referring Provider [phone] [place] Padilla Attending Provider DR AGNES CRUM DO Primary Care Unavailab KENDRICK Anderson DO Attending Unavailable DR AGNES CRUM DO Primary Care Unavailab KENDRICK Anderson DO Attending Unavailable SHARI CERRATO Attending DR AGNES Kat DO Primary Care Unavailab KENDRICK Anderson DO Admitting KENDRICK Levine DO Referring Unavailable SHARI CERRATO Consulting Dr. Agnes Kat DO Primary Care Provider Dr. Agnes Crum DO Referring Provider [phone] Lamont Barth Attending Provider [phone] Dr. Agnes Crum DO Attending Provider Dr. Agnes Crum DO Primary Care Physician Lamont Barth Attending Physician Dr. Agnes Crum DO Attending Physician Agnes Crum Referring Unavailable RadamesAgnes lopez Attending Unavailable Radames, Agnes Primary Care Unavailable RadamesAgnes lopez Primary Care Unavailable Agnes Crum Attending Unavailable Radames, Agnes Referring Unavailable Migel Padilla Attending Unavailable Radames, Agnes Referring Unavailable Radames, Agnes Primary Care Unavailable Lamont Barth Attending Unavailable Radames, Agnes Referring Unavailable Radames, Agnes Primary Care Unavailable Radames, Agnes Referring Unavailable Lamont Barth Attending Unavailable Radames, Agnes Primary Care Unavailable Titi Patel Attending Unavailable Radames, Agnes Referring Unavailable Ardames, Agnes Primary Care Unavailable Radames, Agnes Referring Unavailable Radames, Agnes Primary Care Unavailable RadamesAgnes lopez Attending Unavailable Radames, Agnes Primary Care Unavailable Radames, Agnes Attending Unavailable Allergies Allergy Classification Reported Allergen(s) Allergy Type Date of Onset Reaction(s) Facility (15 sources) Latex Allergy to substance 0 Unknown, RASH [facility] (13 sources) oxyCODONE Drug Allergy 0 Nausea/Vom/Diar pushpa [facility] (1 source) Latex Drug allergy (disorder) 5 [facility] (1 source) oxyCODONE Drug Allergy 5 [facility] Medications Current Medications Medication Drug Class(es) Dates Sig (Normalized) Sig (Original) acetaminophen 325 mg / HYDROcodone bitartrate 5 mg oral tablet (1 source) Opioid Agonist Start: 02-09-2023 End: 02-16-2023 take 1 tablet by mouth every six hours as needed for pain [place] 325- 5 mg oral tablet Dose = 1 tab(s), Oral, q6h, PRN for pain, X 7 day(s), # 28 tab(s), 0 Refill(s), Pharmacy: [id number], Cervical spondylosis, 170.2, cm, 02/09/23 6:23:00 EST, Height, 78.2, kg, 12/27/23 6:23:00 EST, Dosing Weight Start Date: 02/09/23 Stop Date: 02/16/23 Status: Ordered amoxicillin 875 mg oral tablet (7 sources) Penicillin-class Antibacterial Start: 09-05-2024 take 1 tablet by mouth twice daily Start: 12-26-2023 End: 02-13-2024 take 1 tablet by mouth three times daily Amoxicillin 500 mg tablet Discontinued 500 mg PO THREE TIMES A DAY 30 December 26, 2023 1:00am February 13, 2024 10:31am citalopram 20 mg oral tablet (15 sources) Serotonin Reuptake Inhibitor Start: 01-18-2023 citalopram 20 mg ora l tablet Dose : 20 mg = 1 tab(s), Oral, qDay, # 30 tab(s), 0 Refill(s) Start Date: 01/18/23 Status: Ordered Start: 10-24-2017 take 1 tablet by mouth once da reva gabapentin 100 mg oral capsule (2 sources) Anti-epileptic Agent Start: 01-18-2023 gabapentin 100 mg oral capsule Dose : 200 mg = 2 cap(s), Oral, TID, # 180 cap(s), 0 Refill(s) Start Date: 01/18/23 Status: Ordered Lactobacillus Combination No.8 (Adult Probiotic) 3 billion cell capsule (13 sources) Start: 04-29-2017 take 3 capsules by mouth once daily Lactobacillus Combination No.8 (Adult Probiotic) 3 billion cell capsule Active 3000 MMU CELLS PO daily April 29, 2017 8:03am Start: 04-29-2017 End: 04-11-2022 take 3 capsules by mouth once daily Lactobacillus Combination No.8 (Adult Probiotic) 3 billion cell capsule Discontinued 3000 NMA PO daily April 29, 2017 12:00am April 11, 2022 10:28am Start: 04-29-2017 End: 04-11-2022 take 3 capsules by mouth once daily Lactobacillus Combination No.8 (Adult Probiotic) 3 billion cell capsule Discontinued 3000 MMU CELLS PO daily April 29, 2017 12:00am April 11, 2022 10:28am Start: 04-29-2017 End: 04-11-2022 take 3 capsules by mouth once daily Lactobacillus Combination No.8 (Adult Probiotic) 3 billion cell capsule Discontinued 3000 MMU CELLS PO daily April 28, 2017 11:00pm April 11, 2022 9:28am Start: 04-29-2017 take 3 capsules by m outh once daily Lactobacillus Combination No.8 (Adult Probiotic) 3 billion cell capsule Active 3000 MMU CELLS PO daily April 28, 2017 11:00pm Start: 04-29-2017 take 3 capsules by m outh once daily Lactobacillus Combination No.8 (Adult Probiotic) 3 billion cell capsule Active 3000 MMU CELLS PO daily April 29, 2017 12:00am levothyroxine sodium 0.075 mg oral tablet (15 sources) l-Thyroxine Start: 01-18-2023 levothyroxine 75 mcg (0.075 mg) oral tablet Dose : 75 mcg = 1 tab(s), Oral, qDay, # 30 tab(s), 0 Refill(s) Start Date: 01/18/23 Status: Ordered Start: 11-29-2018 take 1 tablet by mouth once da reva meclizine hydrochloride 25 m g oral tablet (20 sources) Antiemetic Start: 01-05-2024 take 1 tablet by shirley th three times daily as needed for dizziness Start: 04-29-2017 End: 04-11-2022 take 1 tablet by mouth twice daily as needed for dizziness Meclizine 25 mg tablet Discontinued 25 mg PO TWICE A DAY as needed for dizziness 30 0 January 23, 2018 1:00am April 11, 2022 10:29am Dizziness and giddiness Multivitamin preparation (9 sources) Start: 04-29-2017 take 1 tablet by mouth once daily in the morning Multivitamin Active 1 TABLET PO EVERY MORNING April 29, 2017 8:02am Start: 04-29-2017 End: 04-11-2022 take 1 tablet by mouth once daily in the morning Multivitamin Discontinued 1 TABLET PO EVERY MORNING April 29, 2017 12:00am April 11, 2022 10:29am Start: 04-29-2017 End: 04-11-2022 take 1 tablet by mouth once daily in the morning Multivitamin Discontinued 1 TABLET PO EVERY MORNING April 28, 2017 11:00pm April 11, 2022 9:29am Start: 04-29-2017 take 1 tablet by shirley th once daily in the morning Multivitamin Active 1 TABLET PO EVERY MORNING April 28, 2017 11:00pm Start: 04-29-2017 take 1 tablet by shirley th once daily in the morning Multivitamin Active 1 TABLET PO EVERY MORNING April 29, 2017 12:00am Completed/Discontinued Medications Medication Drug Class(es) Dates Sig (Normalized) Sig (Original) acetaminophen 325 mg / oxyCODONE hydrochloride 5 mg oral tablet (7 sources) Opioid Agonist Start: 01-12-2023 End: 12-26-2023 Oxycodone-Acetamino phen (Percocet) 5-325 mg tablet Discontinued 1 {tbl} PO Q8H as needed for pain 12 3 0 January 12, 2023 December 26, 2023 11:01am Cervical radiculopathy Radiculopathy, cervical region amoxicillin 875 mg / clavulanate 125 mg oral tablet (20 sources) Penicillin-class Antibacterial Start: 09-05-2024 End: 09-05-2024 Amoxicillin-Pot Clavulanate 875-125 mg tablet Discontinued 1 {tbl} PO TWICE A DAY September 05, 2024 12:00am September 05, 2024 4:44pm Start: 11-29-2018 End: 04-11-2022 Amoxicillin-Pot Clavulanate 875-125 mg tablet Discontinued 1 {tbl} PO TWICE A DAY November 29, 2018 12:00am April 11, 2022 10:28am Start: 11-29-2018 End: 04-11-2022 take 1 tablet by mouth twice daily Amoxicillin-Pot Clavulanate Discontinued 1 TABLET PO TWICE A DAY November 29, 2018 12:00am April 11, 2022 10:28am Start: 10-21-2018 End: 11-29-2018 take 1 tablet by mouth every twelve hours Amoxicillin-Pot Clavulanate 875 MG tablet Discontinued 875 mg PO Q12H 20 0 October 21, 2018 12:00am November 29, 2018 11:00am Start: 01-23-2018 End: 02-02-2018 Amoxicillin-Pot Clavulanate (Augmentin) 875-125 mg tablet Discontinued 1 {tbl} PO Q12H 20 10 January 23, 2018 1:00am February 01, 2018 1:00am February 02, 2018 1:07am Acute sinusitis, unspecified ascorbic acid 500 mg oral capsule (13 sources) Vitamin C Start: 04-29-2017 End: 04-11-2022 Ascorbic Acid (Vitamin C) 50 0 mg capsule Discontinued mg PO 0 April 29, 2017 12:00am April 11, 2022 10:28am Start: 04-29-2017 End: 04-11-2022 Ascorbic Acid (Vitamin C) Di scontinued MG PO April 29, 2017 12:00am April 11, 2022 10:28am azithromycin 250 mg oral tablet (7 sources) Macrolide Antimicrobial Start: 12-30-2022 End: 01-12-2023 take 2-5 tablets by mouth once daily Azithromycin 250 mg tablet Discontinued 0 PO .COMPLEX 6 0 December 30, 2022 1:00am January 12, 2023 2:14pm take 500 mg today (day 1), then 250 mg for 4 days (days 2-5) PO benzonatate 100 mg oral capsule (20 sources) Non-narcotic Antitussive Start: 12-30-2022 End: 12-26-2023 take 2 capsules by mouth three times daily as needed for cough Benzonatate 100 mg capsule Discontinued 200 mg PO THREE TIMES A DAY as needed for cough 30 December 30, 2022 1:00am December 26, 2023 11:01am Start: 12-30-2022 take 200 mg by mouth three times daily Benzonatate Active 200 MG PO THREE TIMES A DAY December 30, 2022 1:00am Start: 12-07-2018 End: 04-11-2022 take 1 capsule by mouth three times daily as needed for cough Benzonatate 200 mg capsule Discontinued 200 mg PO THREE TIMES A DAY as needed for cough 20 0 December 07, 2018 12:00am April 11, 2022 10:28am cephalexin 500 mg oral capsule (13 sources) Cephalosporin Antibacterial Start: 10-06-2018 End: 10-16-2018 take 1 capsule by mouth every twelve hours Cephalexin 500 mg capsule Discontinued 500 mg PO Q12H 20 10 0 October 06, 2018 12:00am October 15, 2018 12:00am October 16, 2018 12:07am ciprofloxacin 3 mg/ml ophthalmic solution (7 sources) Quinolone Antimicrobial Start: 04-11-2022 End: 07-05-2022 Ciprofloxacin Hcl 0.3 % drops Discontinued 0 OPHTHALMIC .COMPLEX 5 0 April 11, 2022 1:00am July 05, 2022 9:57am put 1-2 drps in affected eye(s) every 2hr up to 8 times/day x2days; then 4 times/day x5days ophthalmic (eye) cyclobenzaprine hydrochloride 10 mg oral tablet (7 sources) Muscle Relaxant Start: 10-15-2022 End: 10-20-2022 take 1 tablet by mouth three times daily as needed for muscle spasms Cyclobenzaprine 10 mg tablet Discontinued 10 mg PO THREE TIMES A DAY as needed for muscle spasm 20 5 0 October 15, 2022 12:00am October 19, 2022 12:00am October 20, 2022 12:04am doxycycline monohydrate 100 mg oral capsule (13 sources) Tetracycline-class Drug Start: 12-07-2018 End: 04-11-2022 take 1 capsule by mouth twice daily Doxycycline Monohydrate 100 mg capsule Discontinued 100 mg PO TWICE A DAY 20 0 December 07, 2018 12:00am April 11, 2022 10:28am DULoxetine 20 mg delayed release oral capsule (20 sources) Serotonin and Norepinephrine Reuptake Inhibitor Start: 04-29-2017 End: 04-11-2022 take 1 capsule by mouth twice daily Duloxetine (Cymbalta) 20 mg capsule,delayed release(DR/EC) Discontinued 20 mg PO TWICE A DAY April 29, 2017 12:00am April 11, 2022 10:28am Start: 03-06-2014 End: 04-29-2017 take 20 mg by mouth at bedtime Cymbalta Discontinued 2 0 mg PO AT BEDTIME March 06, 2014 1:00am April 29, 2017 8:01am hydrOXYzine pamoate 25 mg oral capsule (13 sources) Antihistamine Start: 10-21-2018 End: 04-11-2022 Hydroxyzine Pamoate 25 MG capsule Discontinued 50 mg PO 3 TIMES DAILY NEEDED as needed for Itching 30 October 21, 2018 12:00am April 11, 2022 10:28am Start: 10-21-2018 End: 04-11-2022 take 50 mg by mouth three times daily as needed Hydroxyzine Pamoate Discontinued 50 MG PO 3 TIMES DAILY NEEDED October 21, 2018 12:00am April 11, 2022 10:28am methylPREDNISolone 4 mg oral tablet (20 sources) Corticosteroid Start: 10-15-2022 End: 10-21-2022 take 1 tablet by mouth once Methylprednisolone (Medrol (Rg)) 4 mg tablets,dose pack Discontinued 4 mg PO per package directions 21 6 0 October 15, 2022 12:00am October 20, 2022 12:00am October 21, 2022 12:04am Start: 10-06-2018 End: 10-12-2018 take 1 tablet by mouth once Methylprednisolone (Medrol (Rg)) 4 mg tablets,dose pack Discontinued 4 mg PO per package directions 21 5 0 October 06, 2018 12:00am October 10, 2018 12:00am October 12, 2018 12:06am Multivitamin tablet (4 sources) Start: 04-29-2017 End: 04-11-2022 Multivitamin tablet Discontinued 1 {tbl} PO EVERY MORNING April 29, 2017 12:00am April 11, 2022 10:29am omeprazole 10 mg delayed release oral capsule (13 sources) Proton Pump Inhibitor Start: 10-24-2017 End: 04-11-2022 take 1 capsule by mouth once daily Omeprazole 10 mg capsule,delayed release(DR/EC) Discontinued 10 mg PO DAILY October 24, 2017 12:00am April 11, 2022 10:29am ondansetron 4 mg disintegrating oral tablet (7 sources) Serotonin-3 Receptor Antagonist Start: 01-12-2023 End: 12-26-2023 take 1 tablet by mouth every eight hours as needed for nausea Ondansetron 4 mg tablet,disintegra ting Discontinued 4 mg PO EVERY 8 HOURS NEEDED as needed for Nausea 10 0 January 12, 2023 1:00am December 26, 2023 11:01am polymyxin b [id number] unt/ml / trimethoprim 1 mg/ml ophthalmic solution (7 sources) Dihydrofolate Reductase Inhibitor Antibacterial, Polymyxin-class Antibacterial Start: 07-05-2022 End: 07-12-2022 Polymyxin B Sulf-Trimethoprim (Polytrim) 10,000 unit- 1 mg/mL drops Discontinued 1 NMA OPHTHALMIC Q3H 10 7 0 July 05, 2022 12:00am July 11, 2022 12:00am July 12, 2022 12:04am while awake; do not exceed 6 doses in 24 hours predniSONE 50 mg oral tablet (19 sources) Start: 01-12-2023 End: 11-11-2024 take 1 tablet by mouth once daily Prednisone 50 mg tablet Discontinued 50 mg PO DAILY 5 0 January 12, 2023 1:00am December 26, 2023 11:01am Start: 10-21-2018 End: 04-11-2022 Prednisone 10 MG tablet Disc ontinued 10 mg PO DAILY 63 0 October 21, 2018 12:00am April 11, 2022 10:29am 60 mg p.o. daily 3 days, 50 mg p.o. daily 3 days, 40 mg p.o. daily 3 days, 30 mg p.o. daily 3 days, 20 mg p.o. daily 3 days, 10 mg p.o. daily 3 days. Problems Problem Classification Problem Date Documented Da te Episodic/Chronic Allergic reactions (4 sources) Allergic reaction; Translations: [Allergy, unspecified, initial encounter] 02-13-2024 Episodic Anxiety disorders (2 sources) Anxiety disorder; Translations: [Anxiety disorder, unspecified] Onset: 02-09-2023 Chronic Chronic obstructive pulmonary disease and bronchiectasis (16 sources) Bronchitis; Translations: [Bronchitis, not specified as acute or chronic] 11-29-2018 Episodic Conditions associated with dizziness or vertigo (13 sources) Vertigo; Translations: [Dizziness and giddiness] 04-29-2017 Episodic Gastritis and duodenitis (13 sources) Gastritis; Translations: [Gastritis, unspecified, without bleeding] 10-24-2017 Episodic Inflammation; infection of eye (except that caused by tuberculosis or sexually transmitteddisease) (14 sources) Acute infectious conjunctivitis; Translations: [Unspecified acute conjunctivitis, unspecified eye] 07-05-2022 Episodic Other ear and sense organ disorders (11 sources) Impacted cerumen; Translations: [Impacted cerumen, right ear] 01-23-2018 Episodic Other ear and sense organ disorders (2 sources) Impacted cerumen in right ear; Translations: [Impacted cerumen, right ear] 01-23-2018 Episodic Other inflammatory condition of skin (13 sources) Periorbital erythema; Translations: [Other specified erythematous conditions] 10-14-2018 Episodic Other non-traumatic joint disorders (7 sources) Shoulder pain; Translations: [Pain in unspecified shoulder] 01-12-2023 Episodic Other non-traumatic joint disorders (8 sources) Pain in right shoulder; Translations: [Right shoulder pain] 10-15-2022 Episodic Other screening for suspected conditions (not mental disorders or infectious disease) (1 source) Encounter for screening mammogram for malignant neoplasm of breast; Translations: [Encounter for screening mammogram for malignant neoplasm of breast] Onset: 10-18-2024 Episodic Other upper respiratory infections (20 sources) Acute sinusitis; Translations: [Acute sinusitis, unspecified] 01-23-2018 Episodic Residual codes; unclassified (13 sources) Periorbital edema; Translations: [Localized edema] 10-22-2018 Episodic Residual codes; unclassified (1 source) Asymptomatic menopausal state; Translations: [Asymptomatic menopausal state] Onset: 11-05-2024 Episodic Skin and subcutaneous tissue infections (13 sources) Cellulitis of periorbital region; Translations: [Periorbital cellulitis] 10-06-2018 Episodic Spondylosis; intervertebral disc disorders; other back problems (7 sources) Cervical radiculopathy; Translations: [Radiculopathy, cervical region] 01-12-2023 Episodic Sprains and strains (20 sources) Low back strain; Translations: [Strain of muscle, fascia and tendon of lower back, initial encounter] 09-09-2017 Episodic Thyroid disorders (10 sources) Hypothyroidism; Translations: [Hypothyroidism, unspecified] Onset: 02-09-2023 10-15-2022 Chronic Results Test Name Value Interpretation Reference Range Facility Bone density reportOrdered B y: Eliezer Branch on 10-30-2024 Study report Skeletal system DXA [facility] Imaging Services [address] [place] [id number] Dexa Bone Density Study MR#: [id number] Acct: [id number] Name: JOSHUA NOGUEIRA Rep #: [id number] : 1955 F 69 From: George Branch MD PCP: Dr. Agnes Crum DO Status: REG CLI Study:Dexa Bone Density Study Date of Exam: 10/30/24 Exam# [id number] Ordering Dr: Agnes Crum DO PROCEDURE: DEXA BONE DENSITY STUDY 10/30/2024 REASON FOR EXAM: F, age 69 y/o . Postmenopausal. TECHNIQUE: Procedure Code: BDDBD Modality: DX Procedure: DEXA BONE DENSITY STUDY COMPARISON: Prior study dated January 13, 2021. FINDINGS: BMD and T-SCORES Lumbar spine: 1.019 g/cm2, T-score -0.3 Levels: L1 through L4 Change from prior: Improvement of 4.9%. Left femoral neck: 0.635 g/cm2, T-score -1.9 Femoral neck comparison data not recommended for monitoring change. Left total hip: 0.840 g/cm2, T-score -0.8 Change from prior: Loss of 1.1%. Right femoral neck: 0.651 g/cm2, T-score -1.8 Femoral neck comparison data not recommended for monitoring change. Right total hip: 0.790 g/cm2, T-score -1.2 Change from prior: Loss of 9.1%. The World Health Organization has defined the following categories based on bonedensity: Normal bone density: T-score equal to or greater than -1.0 Osteopenia: T-score between -1.0 and -2.5 Osteoporosis: T-score equal to or less than -2.5 FRAX (or Comparable) Fracture Risk Assessment: 10 Year Probability of Fracture: Major Osteoporotic Fracture: 19% Hip Fracture: 6% (Note: FRAX is not to be reported in setting of normal range bone density, osteoporosis on DEXA, known history of osteoporosis, prior osteoporotic hip or vertebral fracture, or for any patient undergoing pharmacological treatment for bone loss.) The National Osteoporosis Foundation (NOF) recommends pharmacological treatment for patients with a FRAX 10-year risk of 3% or higher for a hip fracture, or 20% or higher for a major osteoporotic fracture, to prevent osteoporosis and reduce fracture risk. The patient does meet the pharmacological treatment recommendations for prevention of osteoporosis. BD/Dexa Bone Density Study IMPRESSION: OSTEOPENIA. Recommend follow-up as clinically warranted. Reading Location: [facility] CC: Dr. Agnes Crum, DO ~ Landscape Technician: Signed [facility] Dexa Bone Density Studyon Dexa Bone Density Study [facility] Imaging Services [address] [place] [id number] Dexa Bone Density Study MR#: [id number] Acct: [id number] Name: JOSHUA NOGUEIRA Rep #: [id number] : 1955 F 69 From: Eliezer silva MD PCP: Dr. Agnes Crum DO Status: REG CLI Study: Dexa Bone Density Study Date of Exam: 10/30/24 Exam# [id number] Ordering Dr: Agnes Crum DO PROCEDURE: DEXA BONE DENSITY STUDY 10/30/2024 REASON FOR EXAM: F, age 69 y/o . Postmenopausal. TECHNIQUE: Procedure Code: BDDBD Modality: DX Procedure: DEXA BONE DENSITY STUDY COMPARISON: Prior study dated January 13, 2021. FINDINGS: BMD and T-SCORES Lumbar spine: 1.019 g/cm2, T-score -0.3 Levels: L1 through L4 Change from prior: Improvement of 4.9%. Left femoral neck: 0.635 g/cm2, T-score -1.9 Femoral neck comparison data not recommended for monitoring change. Left total hip: 0.840 g/cm2, T-score -0.8 Change from prior: Loss of 1.1%. Right femoral neck: 0.651 g/cm2, T-score -1.8 Femoral neck comparison data not recommended for monitoring change. Right total hip: 0.790 g/cm2, T-score -1.2 Change from prior: Loss of 9.1%. The World Health Organization has defined the following categories based on bone density: Normal bone density: T-score equal to or greater than -1.0 Osteopenia: T-score between -1.0 and -2.5 Osteoporosis: T-score equal to or less than -2.5 FRAX (or Comparable) Fracture Risk Assessment: 10 Year Probability of Fracture: Major Osteoporotic Fracture: 19% Hip Fracture: 6% (Note: FRAX is not to be reported in setting of normal range bone density, osteoporosis on DEXA, known history of osteoporosis, prior osteoporotic hip or vertebral fracture, or for any patient undergoing pharmacological treatment for bone loss.) The National Osteoporosis Foundation (NOF) recommends pharmacological treatment for patients with a FRAX 10-year risk of 3% or higher for a hip fracture, or 20% or higher for a major osteoporotic fracture, to prevent osteoporosis and reduce fracture risk. The patient does meet the pharmacological treatment recommendations for prevention of osteoporosis. BD/Dexa Bone Density Study IMPRESSION: OSTEOPENIA. Recommend follow-up as clinically warranted. Reading Location: [place] [address] CC: Dr. Agnes Crum DO Landscape Technician: Signed Normal [facility] Absolute lymphocyte countOrd ered By: Agnes Crum on 10-25-2024 Lymphocytes Auto (Unsp spec) [#/Vol] 1.68 10*3/uL 0.83-4.51 [facility] Absolute neutrophil countOrd ered By: Agnes Crum on 10-25-2024 Neutrophils (Bld) [#/Vol] 4.3 10*3/uL 2.0-7.7 [facility] Anion gap in Serum or Plasma Ordered By: Agnes Crum on 10-25-2024 Anion gap [Moles/Vol] 11 mmol/L 5-15 [facility] Automated lymphocyte count a s percentage of total leukocytesOrdered By: Agnes Crum on 10-25-2024 Lymphocytes/100 WBC Auto (Unsp spec) 25.5 % 19-41 [facility] BUN/creatinine ratioOrdered By: Agnes Crum on 10-25-2024 Urea nitrogen/Creatinine [Mass ratio] 14.0 mg/mg 10- [facility] Basophil percentageOrdered B y: Agnes Crum on 10-25-2024 Basophils/100 WBC (Bld) 0.6 % 0-1 [facility] Bilirubin, totalOrdered By: Agnes Crum on 10-25-2024 Bilirubin [Mass/Vol] 0.71 mg/dL 0.00-1.30 [facility] CBC W/Diff, Automatedon 10-15 Absolute Lymph 1.68 X10 3/uL Normal 0.83-4.51 [facility] Comment on above: Performed By: #### L 100.0100, L506.1001, L501.9520, L500.4050 #### [facility] [address] [place], [address] Absolute Neut 4.3 X10 3/uL Normal 2.0-7.7 [facility] Comment on above: Performed By: #### L 100.0100, L506.1001, L501.9520, L500.4050 #### [facility] [address] [place], [address] Basophils/100 WBC (Bld) 0.6 % Normal 0-1 [facility] Comment on above: Performed By: #### L 100.0100, L506.1001, L501.9520, L500.4050 #### [facility] [address] [place], [address] Eosinophils/100 WBC (Bld) 2.9 % Normal 0-5 [facility] Comment on above: Performed By: #### L 100.0100, L506.1001, L501.9520, L500.4050 #### [facility] [address] [place], [address] Erythrocyte distribution width (RBC) [Ratio] 14.6 % Normal 11.6-14.6 [facility] Comment on above: Performed By: #### L 100.0100, L506.1001, L501.9520, L500.4050 #### [facility] [address] [place], [address] Hematocrit (Bld) [Volume fraction] 40.7 % Normal 37-47 [facility] Comment on above: Performed By: #### L 100.0100, L506.1001, L501.9520, L500.4050 #### [facility] [address] [place], [address] Hemoglobin (Bld) [Mass/Vol] 13.4 g/dL Normal 12.0-15.0 [facility] Comment on above: Performed By: #### L 100.0100, L506.1001, L501.9520, L500.4050 #### [facility] [address] [place], [address] IG% 0.200 Normal 0.0-0.9 [facility] Comment on above: Result Comment: IG% - Immature Granulocytes (promyelocytes, myelocytes and metamyelocytes) > 1% indicates that a LEFT SHIFT is Present. Performed By: #### L 100.0100, L506.1001, L501.9520, L500.4050 #### [facility] [address] [place], [address] Lymphocytes/100 WBC (Bld) 25.5 % Normal 19-41 [facility] Comment on above: Performed By: #### L 100.0100, L506.1001, L501.9520, L500.4050 #### [facility] [address] [place], [address] MCH (RBC) [Entitic mass] 30.5 pg Normal 27.0-32.0 [facility] Comment on above: Performed By: #### L 100.0100, L506.1001, L501.9520, L500.4050 #### [facility] [address] [place], [address] MCHC (RBC) [Mass/Vol] 32.9 g/dL Normal 32-36 [facility] Comment on above: Performed By: #### L 100.0100, L506.1001, L501.9520, L500.4050 #### [facility] [address] [place], [address] MCV (RBC) [Entitic vol] 92.5 fL Normal 81-99 [facility] Comment on above: Performed By: #### L 100.0100, L506.1001, L501.9520, L500.4050 #### [facility] [address] [place], [address] Monocytes/100 WBC (Bld) 5.8 % Normal 0-10 [facility] Comment on above: Performed By: #### L 100.0100, L506.1001, L501.9520, L500.4050 #### [facility] [address] [place], [address] Neutrophils/100 WBC (Bld) 65.0 % Normal 47-70 [facility] Comment on above: Performed By: #### L 100.0100, L506.1001, L501.9520, L500.4050 #### [facility] [address] [place], [address] Nucleated RBC (Bld) [#/Vol] 0 10*3/uL Normal 0-5 [facility] Comment on above: Performed By: #### L 100.0100, L506.1001, L501.9520, L500.4050 #### [facility] [address] [place], [address] Platelet mean volume (Bld) [Entitic vol] 10.5 fL Normal 6.2-12.0 [facility] Comment on above: Performed By: #### L 100.0100, L506.1001, L501.9520, L500.4050 #### [facility] [address] [place], [address] Platelets (Bld) [#/Vol] 211 10*3/uL Normal 150-450 [facility] Comment on above: Performed By: #### L 100.0100, L506.1001, L501.9520, L500.4050 #### [facility] [address] [place], [address] RBC (Bld) [#/Vol] 4.40 10*6/uL Normal 4.2-5.4 [facility] Comment on above: Performed By: #### L 100.0100, L506.1001, L501.9520, L500.4050 #### [facility] [address] [place], [address] RDW SD 49.6 fl High 35.1-43.9 [facility] Comment on above: Performed By: #### L 100.0100, L506.1001, L501.9520, L500.4050 #### [facility] [address] [place], [address] WBC (Bld) [#/Vol] 6.6 10*3/uL Normal 4.4-11.0 [facility] Comment on above: Performed By: #### L 100.0100, L506.1001, L501.9520, L500.4050 #### [facility] [address] [place], [address] Carbon dioxide, total [Moles /volume] in Central venous bloodOrdered By: Agnes Crum on 10-25-2024 CO2 [Moles/Vol] 27.0 mmol/L 21.0-32.0 [facility] Chloride assayOrdered By: Mt Crum on 10-25-2024 Chloride [Moles/Vol] 104 mmol/L 98-108 [facility] Comprehensive Metabolic Prof ilon 10-25-2024 Albumin [Mass/Vol] 4.5 g/dL Normal 3.4-4.8 [facility] Comment on above: Performed By: #### L 100.0100, L506.1001, L501.9520, L500.4050 #### [facility] [address] [place], [address] Albumin/Globulin [Mass ratio] 1.5 {ratio} Normal 0.9-2.4 [facility] Comment on above: Performed By: #### L 100.0100, L506.1001, L501.9520, L500.4050 #### [facility] [address] [place], [address] ALK PHOS 48 U/L Normal 35-104 [facility] Comment on above: Performed By: #### L 100.0100, L506.1001, L501.9520, L500.4050 #### [facility] [address] [place], [address] ALT [Catalytic activity/Vol] 12 U/L Normal <=34 [facility] Comment on above: Performed By: #### L 100.0100, L506.1001, L501.9520, L500.4050 #### [facility] [address] [place], [address] AST [Catalytic activity/Vol] 20 U/L Normal <=31 [facility] Comment on above: Performed By: #### L 100.0100, L506.1001, L501.9520, L500.4050 #### [facility] [address] [place], [address] Bilirubin [Mass/Vol] 0.71 mg/dL Normal 0.00-1.30 [facility] Comment on above: Performed By: #### L 100.0100, L506.1001, L501.9520, L500.4050 #### [facility] [address] [place], [address] BUN/CRE 14.0 RATIO Normal 10-20 [facility] Comment on above: Performed By: #### L 100.0100, L506.1001, L501.9520, L500.4050 #### [facility] [address] [place], [address] Calcium [Mass/Vol] 9.2 mg/dL Normal 7.6-11.0 [facility] Comment on above: Performed By: #### L 100.0100, L506.1001, L501.9520, L500.4050 #### [facility] [address] [place], [address] Chloride [Moles/Vol] 104 mmol/L Normal 98-108 [facility] Comment on above: Performed By: #### L 100.0100, L506.1001, L501.9520, L500.4050 #### [facility] [address] [place], [address] CO2 [Moles/Vol] 27.0 mmol/L Normal 21.0-32.0 [facility] Comment on above: Performed By: #### L 100.0100, L506.1001, L501.9520, L500.4050 #### [facility] [address] [place], [address] Creatinine [Mass/Vol] 0.80 mg/dL Normal 0.70-1.20 [facility] Comment on above: Performed By: #### L 100.0100, L506.1001, L501.9520, L500.4050 #### [facility] [address] [place], [address] GAP 11 Normal 5-15 [facility] Comment on above: Performed By: #### L 100.0100, L506.1001, L501.9520, L500.4050 #### [facility] [address] [place], [address] GFR/1.73 sq M.predicted among non-blacks MDRD (S/P/Bld) [Vol rate/Area] 79 mL/min/{1.73_m2} Normal >60 [facility] Comment on above: Result Comment: mL/m in/1.73m2 CKD-EPI Creatinine Equation (2020) Performed By: #### L 100.0100, L506.1001, L501.9520, L500.4050 #### [facility] [address] [place], [address] Globulin (S) [Mass/Vol] 3.0 g/dL Normal 2.2-4.2 [facility] Comment on above: Performed By: #### L 100.0100, L506.1001, L501.9520, L500.4050 #### [facility] [address] [place], [address] Glucose [Mass/Vol] 92 mg/dL Normal 70-99 [facility] Comment on above: Performed By: #### L 100.0100, L506.1001, L501.9520, L500.4050 #### [facility] [address] [place], [address] Potassium [Moles/Vol] 4.2 mmol/L Normal 3.3-5.1 [facility] Comment on above: Performed By: #### L 100.0100, L506.1001, L501.9520, L500.4050 #### [facility] [address] [place], [address] Sodium [Moles/Vol] 141 mmol/L Normal 133-145 [facility] Comment on above: Performed By: #### L 100.0100, L506.1001, L501.9520, L500.4050 #### [facility] [address] [place], [address] T PROT 7.4 g/dL Normal 5.9-8.4 [facility] Comment on above: Performed By: #### L 100.0100, L506.1001, L501.9520, L500.4050 #### [facility] [address] [place], [address] Urea nitrogen [Mass/Vol] 11 mg/dL Normal 4-19 [facility] Comment on above: Performed By: #### L 100.0100, L506.1001, L501.9520, L500.4050 #### [facility] [address] [place], [address] Eosinophil percentageOrdered By: Agnes Crum on 10-25-2024 Eosinophils/100 WBC (Bld) 2.9 % 0-5 [facility] Erythrocyte distribution wid th ratioOrdered By: Agnes Crum on 10-25-2024 Erythrocyte distribution width (RBC) [Ratio] 14.6 % 11.6-14.6 [facility] Erythrocyte distribution wid th standard deviationOrdered By: Agnes Crum on 10-25-2024 Erythrocyte distribution width (RBC) [Ratio] 49.6 fl High 35.1-43.9 [facility] Glomerular filtration rate ( GFR) estimation/1.73 sq m using serum, plasma, or whole bOrdered By: Agnes Crum on 10-25-2024 GFR/1.73 sq M.predicted among non-blacks MDRD (S/P/Bld) [Vol rate/Area] 79 mL/min/{1.73_m2} >60 [facility] Comment on above: mL/min/1.73m2 CKD-EP I Creatinine Equation (2020) Hematocrit Auto (Bld) [Volum e fraction]Ordered By: Agnes Crum on 10-25-2024 Hematocrit (Bld) [Volume fraction] 40.7 % 37-47 [facility] Hemoglobin measurementOrdere d By: Agnes Crum on 10-25-2024 Hemoglobin (Bld) [Mass/Vol] 13.4 g/dL 12.0-15.0 [facility] Immature granulocytes/100 WB C Auto (Bld)Ordered By: Agnes Crum on 10-25-2024 Immature granulocytes/100 WBC (Bld) 0.200 % 0.0-0.9 [facility] Comment on above: IG% - Immature Granu locytes (promyelocytes, myelocytes and metamyelocytes) > 1% indicates that a LEFT SHIFT is Present. Laboratory - Chemistry and C hemistry - challengeOrdered By: Agnes rCum on 10-25-2024 AST [Catalytic activity/Vol] 20 U/L <32 [facility] MCV (mean corpuscular volume ) determinationOrdered By: Agnes Crum on 10-25-2024 MCV (RBC) [Entitic vol] 92.5 fL 81-99 [facility] Mean corpuscular hemoglobin (MCH) determinationOrdered By: Agnes Crum on 10-25-2024 MCH (RBC) [Entitic mass] 30.5 pg 27.0-32.0 [facility] Mean corpuscular hemoglobin concentration (MCHC) determinationOrdered By: Agnes Crum on 10-25-2024 MCHC (RBC) [Mass/Vol] 32.9 g/dL 32-36 [facility] Mean platelet volume determi nationOrdered By: Agnes Crum on 10-25-2024 Platelet mean volume (Bld) [Entitic vol] 10.5 fL 6.2-12.0 [facility] Monocyte percentageOrdered B y: Agnes Crum on 10-25-2024 Monocytes/100 WBC (Bld) 5.8 % 0-10 [facility] Neutrophil percentageOrdered By: Agnes Crum on 10-25-2024 Neutrophils/100 WBC (Bld) 65.0 % 47-70 [facility] Nucleated red blood cell per centageOrdered By: Agnes Crum on 10-25-2024 Nucleated RBC/100 WBC (Bld) [Ratio] 0 % 0-5 [facility] Platelet countOrdered By: Mt Crum on 10-25-2024 Platelets (Bld) [#/Vol] 211 10*3/uL 150-450 [facility] Potassium measurement (mass/ volume)Ordered By: Agnes Crum on 10-25-2024 Potassium (Unsp spec) [Mass/Vol] 4.2 mmol/L 3.3-5.1 [facility] RBC Auto (Bld) [#/Vol]Ordere d By: Agnes Crum on 10-25-2024 RBC (Bld) [#/Vol] 4.40 10*6/uL 4.2-5.4 [facility] Serum creatinine measurement (mass/volume)Ordered By: Agnes Crum on 10-25-2024 Creatinine [Mass/Vol] 0.80 mg/dL 0.70-1.20 [facility] Serum globulin measurementOr dered By: Agnes Crum on 10-25-2024 Globulin (S) [Mass/Vol] 3.0 g/dL 2.2-4.2 [facility] Serum glucose measurement (m ass/volume)Ordered By: Agnes Crum on 10-25-2024 Glucose [Mass/Vol] 92 mg/dL 70-99 [facility] Serum or plasma alanine pizarro otransferase (ALT) measurementOrdered By: Agnes Crum on 10-25-2024 ALT [Catalytic activity/Vol] 12 U/L <35 [facility] Serum or plasma albumin anthony urement (mass/volume)Ordered By: Agnes Crum on 10-25-2024 Albumin [Mass/Vol] 4.5 g/dL 3.4-4.8 [facility] Serum or plasma albumin/glob ulin mass ratioOrdered By: Agnes Crum on 10-25-2024 Albumin/Globulin [Mass ratio] 1.5 {ratio} 0.9-2.4 [facility] Serum or plasma alkaline sreekanth sphatase measurementOrdered By: Agnes Crum on 10-25-2024 ALP [Catalytic activity/Vol] 48 U/L 35-104 [facility] Serum or plasma calcium anthony urement (mass/volume)Ordered By: Agnes Crum on 10-25-2024 Calcium [Mass/Vol] 9.2 mg/dL 7.6-11.0 [facility] Serum or plasma urea nitroge n measurement (mass/volume)Ordered By: Agnes Crum on 10-25-2024 Urea nitrogen [Mass/Vol] 11 mg/dL 4-19 [facility] Sodium levelOrdered By: Agnes Crum on 10-25-2024 Sodium [Moles/Vol] 141 mmol/L 133-145 [facility] TSH DL <= 0.005 mIU/L QnOrde red By: Agnes Crum on 10-25-2024 TSH Qn 1.000 uIU/mL 0.300-4.200 [facility] Thyroid Stim Hormone (TSH)on 10-25-2024 TSH 1.000 uIU/mL Normal 0.300-4.200 [facility] Comment on above: Performed By: #### L 100.0100, L506.1001, L501.9520, L500.4050 #### [facility] [address] [place], [place], [id number] Total proteinOrdered By: Leanne Crum on 10-25-2024 Protein [Mass/Vol] 7.4 g/dL 5.9-8.4 [facility] Vitamin D,25 Hydroxyon 10-25 Vitamin D 25-OH 28.7 ng/mL Low 30-100 [facility] Comment on above: Result Comment: Sue min D Status Deficiency: <20 ng/mL (50nmol/L) Insufficiency: 20-30 ng/mL (50-75 nmol/L) Sufficiency: 30-100 ng/mL (75-250 nmol/L) Toxicity: >100 ng/mL (>250 nmol/L) Performed By: #### L 100.0100, L506.1001, L501.9520, L500.4050 #### [facility] [address] [place], [place], [address] White blood cell (WBC) count Ordered By: Agnes Crum on 10-25-2024 WBC (Bld) [#/Vol] 6.6 10*3/uL 4.4-11.0 [facility] Breast imaging reportOrdered By: Eliezer Branch on 10-10-2024 Study report [facility] Imaging Services [address] [place], [place] [address] SCRN MAMM (CAD)W/ALYSSA BILAT MR#: [id number] Acct: [id number] Name: JOSHUA NOGUEIRA Rep #: [id number] : 1955 F 69 From: George Branch MD PCP: Dr. Agnes Crum DO Status: REG CLI Study:SCRN MAMM (CAD)W/ALYSSA BILAT Date of Exa m: 10/10/24 Exam# [id number] Ordering Dr: Agnes Crum DO EXAM: SCRN MAMM (CAD)W/ALYSSA BILAT DATE: 10/10/2024 CLINICAL HISTORY: F, Age 69 y/o , SCREENING TECHNIQUE: SCRN MAMM (CAD)W/ALYSSA BILAT COMPARISON: Prior exam(s) dated January 13, 2021.. FINDINGS: TISSUE DENSITY: The breasts are almost entirely fatty. Bilateral Breast Mammographic Findings: No significant masses, calcifications or other abnormalities are identified. Stable small benign-appearing bilateral axillary lymph nodes. No suspicious masses, areas of developing architectural distortion, or suspicious calcifications. There has been no significant interval change. BI/SCRN MAMM (CAD)W/ALYSSA BILAT IMPRESSION: Stable examination. OVERALL FINAL ASSESSMENT BI-RADS 2: BENIGN RECOMMENDATION: Routine annual follow-up in 1 Year A letter with findings and recommendations will be mailed to the patient. Reading Location: [id number] CC: Dr. Agnes Crum DO ~ Landscape Technician: Signed [facility] SCRN MAMM (CAD)W/ALYSSA BILATo n 10-10-2024 SCRN MAMM (CAD)W/ALYSSA BILAT [facility] Imaging Services [address] [place], [place] [id number] SCRN MAMM (CAD)W/ALYSSA BILAT MR#: [id number] Acct: [id number] Name: JOSHUA NOGUEIRA Rep #: [id number] : 1955 F 69 From: Eliezer silva MD PCP: Dr. Agnes Crum DO Status: [facility] Study: SCRN MAMM (CAD)W/ALYSSA BILAT Date of Exam: 09/15 09/07 Exam# [id number] Ordering Dr: Agnes Crum DO EXAM: SCRN MAMM (CAD)W/ALYSSA BILAT DATE: 10/10/2024 CLINICAL HISTORY: F, Age 69 y/o , SCREENING TECHNIQUE: SCRN MAMM (CAD)W/ALYSSA BILAT COMPARISON: Prior exam(s) dated January 13, 2021.. FINDINGS: TISSUE DENSITY: The breasts are almost entirely fatty. Bilateral Breast Mammographic Findings: No significant masses, calcifications or other abnormalities are identified. Stable small benign- appearing bilateral axillary lymph nodes. No suspicious masses, areas of developing architectural distortion, or suspicious calcifications. There has been no significant interval change. BI/SCRN MAMM (CAD)W/ALYSSA BILAT IMPRESSION: Stable examination. OVERALL FINAL ASSESSMENT BI-RADS 2: BENIGN RECOMMENDATION: Routine annual follow-up in 1 Year A letter with findings and recommendations will be mailed to the patient. Reading Location: [id number] CC: Dr. Agnes Crum, DO Landscape Technician: Signed Normal [facility] Urgent Care Visit Reporton 0 09-05-2024 Urgent Care Visit Report [facility] [address] [facility], [address] [place] [address] OFFICE VISIT Date of Service: 09/05/24 MR#: [id number] Acct: [id number] Name: JOSHUA NOGUEIRA Rep #: [id number] : 1955 Provider: DALLAS Brasher Age/Sex: 69/F [place] [facility] Status: Signed Intake Vital Signs 02/13/24 09:26 09/05/24 16:21 Height 5 ft 7 in 5 ft 7 in Weight: 168 lb 2 oz 158 lb 6 oz BMI 26.3 24.7 BP 130/90 H 124/84 H Position Sitting Sitting Respiration 16 Pulse 70 71 Temp 97.6 F L 98.8 F Temp Source Oral Oral Pulse Oximetry (%) 99 98 Oxygen Delivery Method room air room air Intake Visit Reasons: L EAR PAIN Chief Complaint: left ear pain Accompanied by: Self Allergies latex Allergy (Verified 09/05/24 16:35) Unknown oxycodone Adverse Reaction (Verified 09/05/24 16:35) Nausea/Vom/Diarrhea Medications ???Medication ???Instructions ???Recorded ???Confirmed ???Type citalopram 10 mg tablet 10 mg PO DAILY 10/24/17 09/05/24 H istory levothyroxine 75 mcg tablet 75 mcg PO DAILY #30 tabs 11/29/18 09/05/24 History meclizine 25 mg tablet 25 mg PO TID PRN dizziness #30 tab s 01/05/24 02/13/24 Rx amoxicillin 875 mg tablet 875 mg PO BID #20 tabs 09/05/24 Rx Have you fallen in the past year?: No Nurse's Note: Patient had left ear pain that started last night and is not going down into her jaw. Patient states if she turns her head a ceratin way she gets pain in her ear. [facility] Medical History (Updated 02/13/24 @ 09:35 by SANJAY Snider) Allergic reaction Hypothyroidism Fatigue Surgical History Tumor of ovary Hx of cholecystectomy History of hysterectomy History of tonsillectomy and adenoidectomy History of appendectomy Family History Other Cancer Heart disease Social History Smoking Status: Former smoker alcohol intake: current HPI HPI Chief Complaint: left ear pain Details: JOSHUA NOGUEIRA, is a 69 F who presents to the office today for [facility] at [facility] for approximately 24-hour history of progressively worsening left ear ache along with left facial pressure/congestion with postnasal drip. No complaints of fever, chills, myalgias, fatigue, runny nose, or nausea/vomiting/diar pushpa. No complaints of chest pain/shortness of breath/dyspnea on exertion. No close contacts with similar complaints. No other associated symptoms and no other alleviating/aggravat ing factors. ROS Const Constitutional: No other (as above) Exam Const General: cooperative, healthy appearing and no acute distress Nutritional Appearance: average body habitus Orientation: alert, awake and oriented x3 HENMT Head: normal to inspection Ears: hearing grossly normal bilaterally, external ears normal, TM's normal bilaterally and EAC's normal Nose: external nose normal, nares normal, septum normal and no nasal discharge Face and sinus: normal facial exam, L>R maxillary palpable tender (w/ L>R maxillary fullness to palpation) and face symmetric Mouth: oral mucosae normal, lip normal, tongue normal and oropharynx normal Throat: posterior oropharynx normal, tonsils normal, uvula midline and postnasal drainage (scant amount purulent) Eyes General: appearance normal, both eyes and all related structures Neck Neck: normal visual inspection, full ROM, no meningeal signs, supple and lymphadenopathy (Bilateral anterior cervical lymph node swelling/tender to palpation) Neck mass: No Thyroid: thyroid normal Chest Chest palpation inspection: normal inspection of the chest Resp Effort Inspection: normal respiratory effort and able to speak in complete sentences Auscultation: Bilateral: Clear to Auscultation Cardio Palpation: normal PMI Rate: regular rate Rhythm: regular rhythm Heart Sounds: S1 normal, S2 normal, no gallops, no murmurs and no rubs Pulses: radial pulses present GI Inspection: normal to inspection Skin General: no rashes or lesions noted Neuro General: patient alert, patient awake and patient oriented x3 Cognition: normal cognition Speech: speech normal Psych Appearance: grossly normal Mental Status: mental status grossly normal Mood: congruent mood Affect: normal affect Speech and Movement: speech and movement normal Attitude: cooperative Diagnoses Acute maxillary sinusitis, unspecified J01.00 Left earache H92.02 Assessment and Plan Assessment and Plan (1) Acute maxillary sinusitis, unspecified: Status: Acute (2) Left earache: Status: Acute Plan: Amoxicillin as prescribed today. Supportive measures as instructed today. Follow-up with PCP in 3 to 5 days should symptoms not impr (more content not included)... Normal [facility] Urgent Care Visit Reporton 1 Urgent Care Visit Report [facility] [address], [address] [place] [address] OFFICE VISIT Date of Service: 02/13/24 MR#: [id number] Acct: [id number] Name: JOSHUA NOGUEIRA Rep #: [id number] : 1955 Provider: SANJAY Patel Age/Sex: 68/F Location[place] [facility] Status: Signed Intake Vital Signs 01/05/24 07:23 02/13/24 09:26 Height 5 ft 7 in 5 ft 7 in Weight: 168 lb 2 oz BMI 26.3 BP 122/70 H 130/90 H Blood Pressure Location Lt brachial Position Sitting Sitting Respiration 14 Pulse 69 70 Pulse Source NIBP Temp 97.9 F 97.6 F L Temp Source Oral Oral Pulse Oximetry (%) 96 99 Oxygen Delivery Method room air room air Intake Visit Reasons: BILAT EYE CONCERN/ALERGIC RX Accompanied by: Self Allergies latex Allergy (Verified 02/13/24 09:31) Unknown oxycodone Adverse Reaction (Verified 02/13/24 09:31) Nausea/Vom/Diarrhea Medications ???Medication ???Instructions ???Recorded ???Confirmed ???Type citalopram 10 mg tablet 10 mg PO DAILY 10/24/17 02/13/24 History levothyroxine 75 mcg tablet 75 mcg PO DAILY #30 tabs 11/29/18 02/13/24 History meclizine 25 mg tablet 25 mg PO TID PRN dizziness #30 tabs 01/05/24 02/13/24 Rx Have you fallen in the past year?: No Nurse's Note: Patient has Bilateral eye redness and is wondering if she having a allergic reaction to a Grinch mask that she wore on [place] that could of had latex in it. [facility] Medical History (Updated 02/13/24 @ 09:35 by SANJAY Snider) Allergic reaction Hypothyroidism Fatigue Surgical History Tumor of ovary Hx of cholecystectomy History of hysterectomy History of tonsillectomy and adenoidectomy History of appendectomy Family History Other Cancer Heart disease Social History Smoking Status: Former smoker alcohol intake: current HPI HPI Details: JOSHUA NOGUEIRA, is a 68 F who presents to the office today for HPI: About 5 days ago patient put on a latex mask for Corinne and subsequently developed swelling on her face and around her eyes as she is allergic to latex. She was seen by a telemetry doc who prescribed prednisone, Zyrtec, and Pepcid. She notes great improvement in her symptoms but her bilateral eyelids are still itchy and irritated. She otherwise denies any nausea vomiting fever difficulty swallowing or breathing. She is concerned that she might need more prednisone. ROS: As noted in HPI Physical Exam: VITALS: Reviewed. GEN: Healthy appearing, well-developed, NAD. PSYCH: AOx3. Normal memory, mood, and affect. HEENT -Eyes: -No discharge or redness; mild erythema and swelling to bilateral upper and lower eyelids. -Ears: -Mouth and throat: Moist mucous membranes. No swelling of the mouth lips or tongue. NECK: CV: Regular rate and rhythm LUNGS: Normal respiratory effort. Lungs clear bilaterally. SKIN: Warm, well perfused. No skin rashes or abnormal lesions noted. MSK: Normal gait. NEURO: Ambulating with no limitations. Normal muscle strength and tone. No focal deficits. Coding Level of Care Code Off vis,est,level 3 Diagnoses Allergic reaction T78.40XA Assessment and Plan Assessment and Plan (1) Allergic reaction: Status: Acute Plan: Discussed with the patient that symptoms do seem to be resolving nicely and that she could continue to take Zyrtec. She will buy this [id number]. Discussed with her that symptoms may last for several more days. Discussed red flag signs for which to watch including swelling of the mouth, lips, or tongue and at that point she should go to the ER but at 5 days out I feel that the risk for this is minimal. Clinical Quality Measures Falls Risk Screening/Assistive Devices Have you fallen in the past year?: No 02/13/24 0936 Date Titi Patel [employer]MENT TECHNICIAN-C Cosigner Signature: Date (if applicable) CC: Normal [facility] Urgent Care Visit Reporton 1 03-06-2023 Urgent Care Visit Report [facility] [address], [address] [place] [address] OFFICE VISIT Date of Service: 01/05/24 MR#: [id number] Acct: [id number] Name: JOSHUA NOGUEIRA Rep #: [id number] : 1955 Provider: DALLAS Hill Age/Sex: 68/F [place] [facility] Status: Signed Intake Vital Signs 01/12/23 12:52 01/05/24 07:23 Height 5 ft 7 in 5 ft 7 in BP 122/70 H Blood Pressure Location Lt brachial Position Sitting Respiration 14 Pulse 69 Pulse Source NIBP Temp 97.9 F Temp Source Oral Pulse Oximetry (%) 96 Oxygen Delivery Method room air Intake Visit Reasons: Vertigo Chief Complaint: vertigo, dizziness and off balance Vat Skimmer Required: No Is patient in pain?: No Allergies latex Allergy (Verified 12/26/23 10:01) Unknown oxycodone Adverse Reaction (Verified 12/26/23 10:01) Nausea/Vom/Diarrhea Is last menstrual period known: No Post menopausal: No Patient : No Have you fallen in the past year?: No Nurse's Note: vertigo, complaints of room spinning while laying down and off balance pt states has been for the past 12 hours, had sinus infection last week PFS Medical History (Updated 01/20/23 @ 00:01 by Tim Gupta) Hypothyroidism Fatigue Surgical History Tumor of ovary Hx of cholecystectomy History of hysterectomy History of tonsillectomy and adenoidectomy History of appendectomy Family History Other Cancer Heart disease Social History Smoking Status: Former smoker alcohol intake: current HPI HPI Chief Complaint: vertigo, dizziness and off balance Details: JOSHUA NOGUEIRA, is a 68 F who presents to the office today for complaint of vertigo starting last night and continuing to this morning. Patient states she turned over in bed last night and started feeling like the room was spinning. Patient does have a history of vertigo. She also states that she had a upper respiratory infection earlier in the week that has since resolved. She denies fever, chills, sweats. No nausea, vomiting or diarrhea. No syncopal or near syncopal episodes. No head trauma. No other associated symptoms or alleviating/aggravat ing factors. ROS Const Constitutional: Positive for other (ROS negative x 10 except what is described above) Exam Const General: cooperative and healthy appearing [facility] Head: normocephalic and atraumatic Ears: hearing grossly normal bilaterally Nose: external nose normal Face and sinus: normal facial exam and face symmetric Mouth: oral mucosae normal Throat: posterior oropharynx normal Eyes General: appearance normal, both eyes and all related structures Pupils: PERRL Resp Effort Inspection: normal respiratory effort Auscultation: Bilateral: Clear to Auscultation Cardio Rate: regular rate Rhythm: regular rhythm Skin General: no rashes or lesions noted Neuro General: patient alert Psych Appearance: grossly normal Mental Status: mental status grossly normal Coding Level of Care Code Off vis,est,level 3 Diagnoses Vertigo R42 Assessment and Plan Assessment and Plan (1) Vertigo: Status: Acute Medications: New meclizine 25 mg PO TID PRN 30 tabs 0RF dizziness Plan Meclizine as prescribed today. Encouraged to get plenty of rest, drink lots of clear liquids. Patient also educated on other symptomatic management techniques. To be seen in 7-10 days if no improvement; sooner if worsening of symptoms. Patient advised of potential red flags and when appropriate to report to the ED. Patient verbalized understanding and agreement with all the above. Clinical Quality Measures Falls Risk Screening/Assistive Devices Have you fallen in the past year?: No 01/05/24 0753 Date Migel Gray Signature: Date (if applicable) CC: Normal [facility] Urgent Care Visit Reporton 1 02-24-2023 Urgent Care Visit Report [facility] [address], [address] [place] [address] OFFICE VISIT Date of Service: 12/26/23 MR#: [id number] Acct: [id number] Name: JOSHUA NOGUEIRA Rep #: [id number] : 1955 Provider: DALLAS Brasher Age/Sex: 68/F [place] [facility] Status: Signed Intake Vital Signs 01/12/23 12:52 12/26/23 10:00 Height 5 ft 7 in BP 132/68 H Blood Pressure Location Lt brachial Position Sitting Respiration 15 Pulse 70 Pulse Source NIBP Temp 98.4 F Temp Source Oral Pulse Oximetry (%) 98 Oxygen Delivery Method room air Intake Visit Reasons: CONCERN FOR SINUS INFECTION Chief Complaint: HOLDER, right face/ear pain Vat Skimmer Required: No Is patient in pain?: Yes Allergies latex Allergy (Verified 12/26/23 10:01) Unknown oxycodone Adverse Reaction (Verified 12/26/23 10:01) Nausea/Vom/Diarrhea Medications ???Medication ???Instructions ???Recorded ???Confirmed ???Type citalopram 10 mg tablet 10 mg PO DAILY 10/24/17 10/15/22 History levothyroxine 75 mcg tablet 75 mcg PO DAILY #30 tabs 11/29/18 01/12/23 History amoxicillin 500 mg tablet 500 mg PO TID #30 tabs 12/26/23 12/26/23 Rx Is last menstrual period known: No Post menopausal: Yes Patient : No Have you fallen in the past year?: No Nurse's Note: HOLDER, right face/ear pain x 4 days. declines viral testing, concern for sinus infection PFSH Medical History (Updated 01/20/23 @ 00:01 by Tim Gupta) Hypothyroidism Fatigue Surgical History Tumor of ovary Hx of cholecystectomy History of hysterectomy History of tonsillectomy and adenoidectomy History of appendectomy Family History Other Cancer Heart disease Social History Smoking Status: Former smoker alcohol intake: current HPI HPI Chief Complaint: HOLDER, right face/ear pain Details: JOSHUA NOGUEIRA, is a 68 F who presents to the office today for [facility] evaluation at [facility] for approximately 5-day history of progressively worsening forehead pressure/congestion with purulent postnasal drip and sore throat. No complaints of fever, chills, myalgias, fatigue, runny nose, or nausea/vomiting/diar pushpa. No complaints of chest pain/shortness of breath/dyspnea on exertion. Declining all POC screening upon offering. No close contacts with similar complaints. No other associated symptoms and no other alleviating/aggravat ing factors. ROS Const Constitutional: No other (as above) Exam Const General: cooperative, healthy appearing and no acute distress Nutritional Appearance: average body habitus Orientation: alert, awake and oriented x3 HENMT Head: normal to inspection Ears: hearing grossly normal bilaterally, external ears normal, TM's normal bilaterally and EAC's normal Nose: external nose normal, nares normal, septum normal and no nasal discharge Face and sinus: normal facial exam, sinuses tender (left frontal) and face symmetric Mouth: oral mucosae normal, lip normal, tongue normal and oropharynx normal Throat: posterior oropharynx normal, tonsils normal, uvula midline and postnasal drainage (Purulent) Eyes General: appearance normal, both eyes and all related structures Neck Neck: normal visual inspection, full ROM, no meningeal signs, supple and lymphadenopathy (Bilateral anterior cervical lymph node swelling/tender to palpation) Neck mass: No Thyroid: thyroid normal Chest Chest palpation inspection: normal inspection of the chest Resp Effort Inspection: normal respiratory effort and able to speak in complete sentences Auscultation: Bilateral: Clear to Auscultation Cardio Palpation: normal PMI Rate: regular rate Rhythm: regular rhythm Heart Sounds: S1 normal, S2 normal, no gallops, no murmurs and no rubs Pulses: radial pulses present GI Inspection: normal to inspection Skin General: no rashes or lesions noted Neuro General: patient alert, patient awake and patient oriented x3 Cognition: normal cognition Speech: speech normal Psych Appearance: grossly normal Mental Status: mental status grossly normal Mood: congruent mood Affect: normal affect Speech and Movement: speech and movement normal Attitude: cooperative Diagnoses Acute frontal sinusitis, unspecified J01.10 Assessment and Plan Assessment and Plan (1) Acute frontal sinusitis, unspecified: Status: Acute Plan: Amoxicillin as prescribed today. Supportive measures as instructed today, with work/school excuse offered. Follow-up with PCP in 3 to 5 days should symptoms not improve, sooner should symptoms worsen or any other concerns develop. Patient states acknowledging understanding all the above Coding Lev (more content not included)... Normal [facility] .Auto Diffon 02-10-2023 Basophil, Absolute 0.0 10 3/mcL Normal 0.0-0.2 [facility] ([place]) Comment on above: Performed By: #### C SAVANNAH CRENSHAW ANEU #### [address] [address] Basophils/100 WBC (Bld) 0.5 % Normal 0.0-2.5 A [facility] ([place]) Comment on above: Performed By: #### C SAVANNAH CRENSHAW ANEU #### [address] [address] Eosinophil, Absolute 0.0 10 3/mcL Normal 0.0-0.4 [facility] ([place]) Comment on above: Performed By: #### C BC, ADIFF, ANEU #### [address] [address] Eosinophils/100 WBC (Bld) 0.2 % Normal 0.0-7.0 [facility] ([place]) Comment on above: Performed By: #### C BC, ADIFF, ANEU #### [address] [address] Lymphocyte, Absolute 1.1 10 3/mcL Normal 0.8-3.9 [facility] ([place]) Comment on above: Performed By: #### C BC, ADIFF, ANEU #### [address] [address] Lymphocytes/100 WBC (Bld) 12.0 % Normal 10.0-50.0 [facility] ([place]) Comment on above: Performed By: #### C BC, ADIFF, ANEU #### [address] [address] Monocyte, Absolute 0.7 10 3/mcL Normal 0.2-1.0 [facility] ([place]) Comment on above: Performed By: #### C BC, ADIFF, ANEU #### [address] [address] Monocytes/100 WBC (Bld) 7.9 % Normal 1.7-13.0 [facility] ([place]) Comment on above: Performed By: #### C BC, ADIFF, ANEU #### [address] [address] Neutrophils/100 WBC (Bld) 79.4 % Normal 37.0-80.0 [facility] ([place]) Comment on above: Performed By: #### C BC, ADIFF, ANEU #### [address] [address] .GFRon 02-10-2023 GFR 87 ml/min/1.73sqm Normal [facility] ([place]) Comment on above: Result Comment: GFR Population mean for , Non- Americans Ages 20-29 = 116 mL/min/1.73 sq.m. Ages 30-39 = 107 mL/min/1.73 sq.m. Ages 40-49 = 99 mL/min/1.73 sq.m. Ages 50-59 = 93 mL/min/1.73 sq.m. Ages 60-69 = 85 mL/min/1.73 sq.m. Ages 70+ = 75 mL/min/1.73 sq.m. Chronic Kidney Disease: Less than 60 mL/min/1.73 square meters End Stage Renal Disease: Less than 15 mL/min/1.73 square meters Performed By: #### C BC, ADIFF, GFR, BMP, PRO, ANEU #### [address] [address] GFR Non- 72 ml/min/1.73sqm Normal [facility] ([place]) Comment on above: Result Comment: GFR Population mean for , Non- Americans Ages 20-29 = 116 mL/min/1.73 sq.m. Ages 30-39 = 107 mL/min/1.73 sq.m. Ages 40-49 = 99 mL/min/1.73 sq.m. Ages 50-59 = 93 mL/min/1.73 sq.m. Ages 60-69 = 85 mL/min/1.73 sq.m. Ages 70+ = 75 mL/min/1.73 sq.m. Chronic Kidney Disease: Less than 60 mL/min/1.73 square meters End Stage Renal Disease: Less than 15 mL/min/1.73 square meters Performed By: #### C BC, ADIFF, GFR, BMP, PRO, ANEU #### [address] [address] .NEUABSon 02-10-2023 Neutrophil, Absolute 7.4 10 3/mcL High 2.9-6.2 [facility] ([place]) Comment on above: Performed By: #### C BC, ADIFF, ANEU #### [address] [address] BMPon 02-10-2023 BUN/Creatinine Ratio 16 ratio Normal 7-27 [facility] ([place]) Comment on above: Performed By: #### C BC, ADIFF, GFR, BMP, PRO, ANEU #### [address] [address] Calcium [Mass/Vol] 8.3 mg/dL Low 8.4-10.2 [facility] ([place]) Comment on above: Performed By: #### C BC, ADIFF, GFR, BMP, PRO, ANEU #### [address] [address] Chloride [Moles/Vol] 108 mmol/L High 98-107 [facility] ([place]) Comment on above: Performed By: #### C BC, ADIFF, GFR, BMP, PRO, ANEU #### [place] [id number] CO2 [Moles/Vol] 28 mmol/L Normal 23-31 [facility] ([place]) Comment on above: Performed By: #### C BC, ADIFF, GFR, BMP, PRO, ANEU #### [address] [address] Creatinine [Mass/Vol] 0.79 mg/dL Normal 0.55-1.02 [facility] ([place]) Comment on above: Performed By: #### C BC, ADIFF, GFR, BMP, PRO, ANEU #### [address] [address] Electrolyte Balance 7.0 mEq/L Normal 4.0-15.0 [facility] ([place]) Comment on above: Performed By: #### C BC, ADIFF, GFR, BMP, PRO, ANEU #### [address] [address] Glucose [Mass/Vol] 104 mg/dL Normal 80-115 [facility] ([place]) Comment on above: Performed By: #### C BC, ADIFF, GFR, BMP, PRO, ANEU #### [address] [address] Potassium [Moles/Vol] 4.1 mmol/L Normal 3.5-5.1 [facility] ([place]) Comment on above: Performed By: #### C BC, ADIFF, GFR, BMP, PRO, ANEU #### [address] [address] Sodium [Moles/Vol] 143 mmol/L Normal 136-145 [facility] ([place]) Comment on above: Performed By: #### C BC, ADIFF, GFR, BMP, PRO, ANEU #### [address] [address] Urea nitrogen [Mass/Vol] 13 mg/dL Normal 7-18 [facility] ([place]) Comment on above: Performed By: #### C BC, ADIFF, GFR, BMP, PRO, ANEU #### [address] [address] CBCon 02-10-2023 Erythrocyte distribution width (RBC) [Ratio] 14.6 % High 11.5-14.5 [facility] ([place]) Comment on above: Performed By: #### C BC, ADIFF, ANEU #### [address] [address] Hematocrit (Bld) [Volume fraction] 35.9 % Low 37.0-47.0 [facility] ([place]) Comment on above: Performed By: #### C BC, ADIFF, ANEU #### [address] [address] Hgb 11.8 G/dL Low 12.0-16.0 [facility] ([place]) Comment on above: Performed By: #### C BC, ADIFF, ANEU #### [address] [address] MCH (RBC) [Entitic mass] 29.4 pg Normal 27.0-31.2 [facility] ([place]) Comment on above: Performed By: #### C BC, ADIFF, ANEU #### [address] [address] MCHC 32.8 G/dL Low 33.0-37.0 [facility] ([place]) Comment on above: Performed By: #### SAVANNAH ELIZABETH, ANEU #### [address] [address] MCV (RBC) [Entitic vol] 89.5 fL Normal 80.0-94.0 A [facility] ([place]) Comment on above: Performed By: #### SAVANNAH ELIZABETH, ANEU #### [address] [address] Platelet 191 10 3/mcL Normal 130-400 [facility] ([place]) Comment on above: Performed By: #### SAVANNAH ELIZABETH, ANEU #### [address] [address] Platelet mean volume (Bld) [Entitic vol] 8.0 fL Normal 7.4-10.4 [facility] ([place]) Comment on above: Performed By: #### SAVANNAH ELIZABETH, ANEU #### [address] [address] RBC 4.00 10 6/mcL Low 4.20-5.40 [facility] ([place]) Comment on above: Performed By: #### SAVANNAH ELIZABETH, ANEU #### [address] [address] WBC 9.3 10 3/mcL Normal 4.6-10.8 [facility] ([place]) Comment on above: Performed By: #### SAVANNAH ELIZABETH, ANEU #### [address] [address] LABORATORYOrdered By: SYSTEM SYSTEM on 02-10-2023 Basophil, Absolute 0.0 103/mcL Normal 0.0 - 0.2 10^3/mcL AO Workflow SS Basophils/100 WBC (Bld) 0.5 % Normal 0.0 - 2.5 % AO Workflow SS Calcium [Mass/Vol] 8.3 mg/dL Low 8.4 - 10. 2 mg/dL AO ADM SS Chloride [Moles/Vol] 108 mmol/L High 98 - 10 7 mmol/L AO ADM SS CO2 [Moles/Vol] 28 mmol/L Normal 23 - 31 mmol/L AO ADM SS Creatinine [Mass/Vol] 0.79 mg/dL Normal 0.55 - 1.02 mg/dL AO ADM SS Electrolyte Balance 7.0 mEq/L Normal 4.0 - 15 .0 mEq/L AO ADM SS Eosinophil, Absolute 0.0 103/mcL Normal 0.0 - 0 .4 10^3/mcL AO Workflow SS Eosinophils/100 WBC (Bld) 0.2 % Normal 0.0 - 7.0 % AO Workflow SS Erythrocyte distribution width (RBC) [Ratio] 14.6 % High 11.5 - 14.5 % AO Workflow SS GFR/1.73 sq M.predicted among blacks MDRD (S/P/Bld) [Vol rate/Area] 87 ml/min/1.73sqm Invalid Interpretation Code AO Chemistry S Comment on above: Interpretive Data: GFR Population mean for , Non- Americans Ages 20-29 = 116 mL/min/1.73 sq.m. Ages 30-39 = 107 mL/min/1.73 sq.m. Ages 40-49 = 99 mL/min/1.73 sq.m. Ages 50-59 = 93 mL/min/1.73 sq.m. Ages 60-69 = 85 mL/min/1.73 sq.m. Ages 70+ = 75 mL/min/1.73 sq.m. Chronic Kidney Disease: Less than 60 mL/min/1.73 square meters End Stage Renal Disease: Less than 15 mL/min/1.73 square meters GFR/1.73 sq M.predicted among non-blacks MDRD (S/P/Bld) [Vol rate/Area] 72 ml/min/1.73sqm Invalid Interpretation Code AO Chemistry S Comment on above: Interpretive Data: GFR Population mean for , Non- Americans Ages 20-29 = 116 mL/min/1.73 sq.m. Ages 30-39 = 107 mL/min/1.73 sq.m. Ages 40-49 = 99 mL/min/1.73 sq.m. Ages 50-59 = 93 mL/min/1.73 sq.m. Ages 60-69 = 85 mL/min/1.73 sq.m. Ages 70+ = 75 mL/min/1.73 sq.m. Chronic Kidney Disease: Less than 60 mL/min/1.73 square meters End Stage Renal Disease: Less than 15 mL/min/1.73 square meters Glucose [Mass/Vol] 104 mg/dL Normal 80 - 115 mg/dL AO ADM SS Hematocrit (Bld) [Volume fraction] 35.9 % Low 37.0 - 47.0 % AO Workflow SS Hemoglobin (Bld) [Mass/Vol] 11.8 G/dL Low 12.0 - 16.0 G/dL AO Workflow SS Lymphocyte, Absolute 1.1 103/mcL Normal 0.8 - 3 .9 10^3/mcL AO Workflow SS Lymphocytes/100 WBC (Bld) 12.0 % Normal 10.0 - 50.0 % AO Workflow SS MCH (RBC) [Entitic mass] 29.4 pg Normal 27.0 - 31.2 pg AO Workflow SS MCHC 32.8 G/dL Low 33.0 - 37.0 G/dL AO Workflow SS MCV (RBC) [Entitic vol] 89.5 fL Normal 80.0 - 94.0 fL AO Workflow SS Monocyte, Absolute 0.7 103/mcL Normal 0.2 - 1.0 10^3/mcL AO Workflow SS Monocytes/100 WBC (Bld) 7.9 % Normal 1.7 - 13.0 % AO Workflow SS Neutrophil, Absolute 7.4 103/mcL High 2.9 - 6 .2 10^3/mcL AO Workflow SS Neutrophils/100 WBC (Bld) 79.4 % Normal 37.0 - 80.0 % AO Workflow SS Platelet mean volume (Bld) [Entitic vol] 8.0 fL Normal 7.4 - 10.4 fL AO Workflow SS Platelets (Bld) [#/Vol] 191 103/mcL Normal 130 - 400 10^3/mcL AO Workflow SS Potassium [Moles/Vol] 4.1 mmol/L Normal 3.5 - 5.1 mmol/L AO ADM SS RBC (Bld) [#/Vol] 4.00 106/mcL Low 4.20 - 5.4 0 10^6/mcL AO Workflow SS Sodium [Moles/Vol] 143 mmol/L Normal 136 - 145 mmol/L AO ADM SS Urea nitrogen [Mass/Vol] 13 mg/dL Normal 7 - 18 mg/dL AO ADM SS Urea nitrogen/Creatinine [Mass ratio] 16 ratio Normal 7 - 27 ratio AO ADM SS WBC (Bld) [#/Vol] 9.3 103/mcL Normal 4.6 - 10.8 10^3/mcL AO Workflow SS APTTon 02-09-2023 aPTT Coag (Bld) [Time] 27.6 s Normal 25.0-35.0 [facility] ([place]) Comment on above: Result Comment: For Heparin anticoagulation therapy, the recommended therapeutic range is: 50.6-87.4 seconds. Patients on heparin therapy may have an extreme result. Heparin dose (APTT) None Normal [facility] ([place]) LABORATORYOrdered By: Gold Christopher on 02-09-2023 aPTT Coag (PPP) [Time] 27.6 s Normal 25.0 - 35.0 seconds AO [facility] SS Comment on above: Interpretive Data: F or Heparin anticoagulation therapy, the recommended therapeutic range is: 50.6-87.4 seconds. Patients on heparin therapy may have an extreme result. Heparin dose (APTT) None Normal AO Coagulation S XR FLUORO 1-2 HRS TECH TIMEo n 02-09-2023 XR FLUORO 1-2 HRS TECH TIME ORIGINAL Images acquired, not reported on this accession number. Normal [facility] ([place]) .Auto Diffon 01-18-2023 Basophil, Absolute 0.0 10 3/mcL Normal 0.0-0.2 [facility]) Comment on above: Performed By: #### C BC, ADIFF, GFR, BMP, PRO, ANEU #### [address] [address] Basophils/100 WBC (Bld) 0.4 % Normal 0.0-2.5 A [facility] ([place]) Comment on above: Performed By: #### C BC, ADIFF, GFR, BMP, PRO, ANEU #### [address] [address] Eosinophil, Absolute 0.0 10 3/mcL Normal 0.0-0.4 [facility]) Comment on above: Performed By: #### C BC, ADIFF, GFR, BMP, PRO, ANEU #### [address] [address] Eosinophils/100 WBC (Bld) 0.4 % Normal 0.0-7.0 [facility]) Comment on above: Performed By: #### C BC, ADIFF, GFR, BMP, PRO, ANEU #### [address] [address] Lymphocyte, Absolute 2.4 10 3/mcL Normal 0.8-3.9 [facility] ([place]) Comment on above: Performed By: #### C BC, ADIFF, GFR, BMP, PRO, ANEU #### [address] [address] Lymphocytes/100 WBC (Bld) 33.6 % Normal 10.0-50.0 [facility] ([place]) Comment on above: Performed By: #### C BC, ADIFF, GFR, BMP, PRO, ANEU #### [address] [address] Monocyte, Absolute 0.6 10 3/mcL Normal 0.2-1.0 [facility] ([place]) Comment on above: Performed By: #### C BC, ADIFF, GFR, BMP, PRO, ANEU #### [address] [address] Monocytes/100 WBC (Bld) 7.7 % Normal 1.7-13.0 [facility] ([place]) Comment on above: Performed By: #### C BC, ADIFF, GFR, BMP, PRO, ANEU #### [address] [address] Neutrophils/100 WBC (Bld) 57.9 % Normal 37.0-80.0 [facility] ([place]) Comment on above: Performed By: #### C BC, ADIFF, GFR, BMP, PRO, ANEU #### [address] [address] .GFRon 01-18-2023 GFR 74 ml/min/1.73sqm Normal [facility] ([place]) Comment on above: Result Comment: GFR Population mean for , Non- Americans Ages 20-29 = 116 mL/min/1.73 sq.m. Ages 30-39 = 107 mL/min/1.73 sq.m. Ages 40-49 = 99 mL/min/1.73 sq.m. Ages 50-59 = 93 mL/min/1.73 sq.m. Ages 60-69 = 85 mL/min/1.73 sq.m. Ages 70+ = 75 mL/min/1.73 sq.m. Chronic Kidney Disease: Less than 60 mL/min/1.73 square meters End Stage Renal Disease: Less than 15 mL/min/1.73 square meters Performed By: #### C BC, ADIFF, GFR, BMP, PRO, ANEU #### [address] [address] GFR Non- 61 ml/min/1.73sqm Normal [facility] ([place]) Comment on above: Result Comment: GFR Population mean for , Non- Americans Ages 20-29 = 116 mL/min/1.73 sq.m. Ages 30-39 = 107 mL/min/1.73 sq.m. Ages 40-49 = 99 mL/min/1.73 sq.m. Ages 50-59 = 93 mL/min/1.73 sq.m. Ages 60-69 = 85 mL/min/1.73 sq.m. Ages 70+ = 75 mL/min/1.73 sq.m. Chronic Kidney Disease: Less than 60 mL/min/1.73 square meters End Stage Renal Disease: Less than 15 mL/min/1.73 square meters Performed By: #### C BC, ADIFF, GFR, BMP, PRO, ANEU #### [address] [address] .NEUABSon 01-18-2023 Neutrophil, Absolute 4.2 10 3/mcL Normal 2.9-6.2 [facility] ([place]) Comment on above: Performed By: #### C BC, ADIFF, GFR, BMP, PRO, ANEU #### [address] [address] BMPon 01-18-2023 BUN/Creatinine Ratio 23 ratio Normal 7-27 [facility] ([place]) Comment on above: Performed By: #### C BC, ADIFF, GFR, BMP, PRO, ANEU #### [address] [address] Calcium [Mass/Vol] 8.4 mg/dL Normal 8.4-10.2 [facility] ([place]) Comment on above: Performed By: #### C BC, ADIFF, GFR, BMP, PRO, ANEU #### [address] [address] Chloride [Moles/Vol] 103 mmol/L Normal 98-107 [facility] ([place]) Comment on above: Performed By: #### C BC, ADIFF, GFR, BMP, PRO, ANEU #### [place] [id number] CO2 [Moles/Vol] 33 mmol/L High 23-31 [facility] ([place]) Comment on above: Performed By: #### C BC, ADIFF, GFR, BMP, PRO, ANEU #### [place] [id number] Creatinine [Mass/Vol] 0.91 mg/dL Normal 0.55-1.02 [facility] ([place]) Comment on above: Performed By: #### C BC, ADIFF, GFR, BMP, PRO, ANEU #### [place] [address] Electrolyte Balance 5.0 mEq/L Normal 4.0-15.0 [facility] ([place]) Comment on above: Performed By: #### C BC, ADIFF, GFR, BMP, PRO, ANEU #### [address] [address] Glucose [Mass/Vol] 92 mg/dL Normal 80-115 [facility] ([place]) Comment on above: Performed By: #### C BC, ADIFF, GFR, BMP, PRO, ANEU #### [place] [id number] Potassium [Moles/Vol] 3.9 mmol/L Normal 3.5-5.1 [facility] ([place]) Comment on above: Performed By: #### C BC, ADIFF, GFR, BMP, PRO, ANEU #### [address] [address] Sodium [Moles/Vol] 141 mmol/L Normal 136-145 [facility] ([place]) Comment on above: Performed By: #### C BC, ADIFF, GFR, BMP, PRO, ANEU #### [address] [address] Urea nitrogen [Mass/Vol] 21 mg/dL High 7-18 [facility] ([place]) Comment on above: Performed By: #### C BC, ADIFF, GFR, BMP, PRO, ANEU #### [address] [address] CBCon 01-18-2023 Erythrocyte distribution width (RBC) [Ratio] 14.9 % High 11.5-14.5 [facility] ([place]) Comment on above: Order Comment: Pre-A dmission Testing Performed By: #### C BC, ADIFF, GFR, BMP, PRO, ANEU #### [place] [id number] Hematocrit (Bld) [Volume fraction] 40.4 % Normal 37.0-47.0 [facility] ([place]) Comment on above: Order Comment: Pre-A dmission Testing Performed By: #### C BC, ADIFF, GFR, BMP, PRO, ANEU #### [address] [address] Hgb 13.0 G/dL Normal 12.0-16.0 [facility] ([place]) Comment on above: Order Comment: Pre-A dmission Testing Performed By: #### C BC, ADIFF, GFR, BMP, PRO, ANEU #### [address] [address] MCH (RBC) [Entitic mass] 29.1 pg Normal 27.0-31.2 [facility] ([place]) Comment on above: Order Comment: Pre-A dmission Testing Performed By: #### C BC, ADIFF, GFR, BMP, PRO, ANEU #### [address] [address] MCHC 32.2 G/dL Low 33.0-37.0 [facility] ([place]) Comment on above: Order Comment: Pre-A dmission Testing Performed By: #### C BC, ADIFF, GFR, BMP, PRO, ANEU #### [address] [address] MCV (RBC) [Entitic vol] 90.4 fL Normal 80.0-94.0 [facility] ([place]) Comment on above: Order Comment: Pre-A dmission Testing Performed By: #### C BC, ADIFF, GFR, BMP, PRO, ANEU #### [address] [address] Platelet 218 10 3/mcL Normal 130-400 [facility] ([place]) Comment on above: Order Comment: Pre-A dmission Testing Performed By: #### C BC, ADIFF, GFR, BMP, PRO, ANEU #### [address] [address] Platelet mean volume (Bld) [Entitic vol] 8.5 fL Normal 7.4-10.4 [facility] ([place]) Comment on above: Order Comment: Pre-A dmission Testing Performed By: #### C BC, ADIFF, GFR, BMP, PRO, ANEU #### [address] [address] RBC 4.47 10 6/mcL Normal 4.20-5.40 [facility] ([place]) Comment on above: Order Comment: Pre-A dmission Testing Performed By: #### C BC, ADIFF, GFR, BMP, PRO, ANEU #### [address] [address] WBC 7.2 10 3/mcL Normal 4.6-10.8 [facility] ([place]) Comment on above: Order Comment: Pre-A dmission Testing Performed By: #### C BC, ADIFF, GFR, BMP, PRO, ANEU #### [address] [address] LABORATORYOrdered By: SYSTEM SYSTEM on 01-18-2023 Basophil, Absolute 0.0 103/mcL Normal 0.0 - 0.2 10^3/mcL AO Workflow SS Basophils/100 WBC (Bld) 0.4 % Normal 0.0 - 2.5 % AO Workflow SS Calcium [Mass/Vol] 8.4 mg/dL Normal 8.4 - 10. 2 mg/dL AO ADM SS Chloride [Moles/Vol] 103 mmol/L Normal 98 - 10 7 mmol/L AO ADM SS CO2 [Moles/Vol] 33 mmol/L High 23 - 31 mmol/L AO ADM SS Creatinine [Mass/Vol] 0.91 mg/dL Normal 0.55 - 1.02 mg/dL AO ADM SS Electrolyte Balance 5.0 mEq/L Normal 4.0 - 15 .0 mEq/L AO ADM SS Eosinophil, Absolute 0.0 103/mcL Normal 0.0 - 0 .4 10^3/mcL AO Workflow SS Eosinophils/100 WBC (Bld) 0.4 % Normal 0.0 - 7.0 % AO Workflow SS Erythrocyte distribution width (RBC) [Ratio] 14.9 % High 11.5 - 14.5 % AO Workflow SS GFR/1.73 sq M.predicted among blacks MDRD (S/P/Bld) [Vol rate/Area] 74 ml/min/1.73sqm Invalid Interpretation Code AO Chemistry S Comment on above: Interpretive Data: GFR Population mean for , Non- Americans Ages 20-29 = 116 mL/min/1.73 sq.m. Ages 30-39 = 107 mL/min/1.73 sq.m. Ages 40-49 = 99 mL/min/1.73 sq.m. Ages 50-59 = 93 mL/min/1.73 sq.m. Ages 60-69 = 85 mL/min/1.73 sq.m. Ages 70+ = 75 mL/min/1.73 sq.m. Chronic Kidney Disease: Less than 60 mL/min/1.73 square meters End Stage Renal Disease: Less than 15 mL/min/1.73 square meters GFR/1.73 sq M.predicted among non-blacks MDRD (S/P/Bld) [Vol rate/Area] 61 ml/min/1.73sqm Invalid Interpretation Code AO Chemistry S Comment on above: Interpretive Data: GFR Population mean for , Non- Americans Ages 20-29 = 116 mL/min/1.73 sq.m. Ages 30-39 = 107 mL/min/1.73 sq.m. Ages 40-49 = 99 mL/min/1.73 sq.m. Ages 50-59 = 93 mL/min/1.73 sq.m. Ages 60-69 = 85 mL/min/1.73 sq.m. Ages 70+ = 75 mL/min/1.73 sq.m. Chronic Kidney Disease: Less than 60 mL/min/1.73 square meters End Stage Renal Disease: Less than 15 mL/min/1.73 square meters Glucose [Mass/Vol] 92 mg/dL Normal 80 - 115 mg/dL AO ADM SS Hematocrit (Bld) [Volume fraction] 40.4 % Normal 37.0 - 47.0 % AO Workflow SS Hemoglobin (Bld) [Mass/Vol] 13.0 G/dL Normal 12.0 - 16.0 G/dL AO Workflow SS Lymphocyte, Absolute 2.4 103/mcL Normal 0.8 - 3 .9 10^3/mcL AO Workflow SS Lymphocytes/100 WBC (Bld) 33.6 % Normal 10.0 - 50.0 % AO Workflow SS MCH (RBC) [Entitic mass] 29.1 pg Normal 27.0 - 31.2 pg AO Workflow SS MCHC 32.2 G/dL Low 33.0 - 37.0 G/dL AO Workflow SS MCV (RBC) [Entitic vol] 90.4 fL Normal 80.0 - 94.0 fL AO Workflow SS Monocyte, Absolute 0.6 103/mcL Normal 0.2 - 1.0 10^3/mcL AO Workflow SS Monocytes/100 WBC (Bld) 7.7 % Normal 1.7 - 13.0 % AO Workflow SS Neutrophil, Absolute 4.2 103/mcL Normal 2.9 - 6 .2 10^3/mcL AO Workflow SS Neutrophils/100 WBC (Bld) 57.9 % Normal 37.0 - 80.0 % AO Workflow SS Platelet mean volume (Bld) [Entitic vol] 8.5 fL Normal 7.4 - 10.4 fL AO Workflow SS Platelets (Bld) [#/Vol] 218 103/mcL Normal 130 - 400 10^3/mcL AO Workflow SS Potassium [Moles/Vol] 3.9 mmol/L Normal 3.5 - 5.1 mmol/L AO ADM SS RBC (Bld) [#/Vol] 4.47 106/mcL Normal 4.20 - 5.4 0 10^6/mcL AO Workflow SS Sodium [Moles/Vol] 141 mmol/L Normal 136 - 145 mmol/L AO ADM SS Urea nitrogen [Mass/Vol] 21 mg/dL High 7 - 18 mg/dL AO ADM SS Urea nitrogen/Creatinine [Mass ratio] 23 ratio Normal 7 - 27 ratio AO ADM SS WBC (Bld) [#/Vol] 7.2 103/mcL Normal 4.6 - 10.8 10^3/mcL AO Workflow SS LABORATORYOrdered By: Arun Shanks on 01-18-2023 INR Coag (PPP) [Relative time] 0.9 {INR} Invalid Interpretation Code AO [facility] SS Comment on above: Interpretive Data: Olivia coreas [employer] (CHEST, 1991, 102:[id number]) recommended therapeutic range for oral anticoagulant therapy is: LOW RISK: Prophylaxis of venous thrombosis INR: 2.0-3.0 Treatment of pulmonary embolism 2.0-3.0 Prevention of systemic embolism 2.0-3.0 HIGH RISK: Mechanical prosthetic valves 2.5-3.5 PT Coag (PPP) [Time] 10.4 s Normal 9.0 - 1 4.2 seconds AO [facility] SS PROon 01-18-2023 PT Coag (PPP) [Time] 10.4 s Normal 9.0-14.2 [facility] ([place]) Comment on above: Performed By: #### C BC, ADIFF, GFR, BMP, PRO, ANEU #### [address] [address] PT International Ratio 0.9 Normal [facility] ([place]) Comment on above: Result Comment: [employer] (CHEST, 1991, 102:[id number]) recommended therapeutic range for oral anticoagulant therapy is: LOW RISK: Prophylaxis of venous thrombosis INR: 2.0-3.0 Treatment of pulmonary embolism 2.0-3.0 Prevention of systemic embolism 2.0-3.0 HIGH RISK: Mechanical prosthetic valves 2.5-3.5 Performed By: #### C BC, ADIFF, GFR, BMP, PRO, ANEU #### [address] [address] XR CHEST 2 VIEWSon 3 XR CHEST 2 VIEWS ORIGINAL EXAMINATION: TWO XRAY VIEWS OF THE CHEST 01/18/2023 11:29 am COMPARISON: None. HISTORY: ORDERING SYSTEM PROVIDED HISTORY: Reason for Exam: Pre-admission testing FINDINGS: The cardiomediastinal contours are within normal limits. The lungs are clear bilaterally. There is no evidence of focal consolidation, pulmonary edema, pleural effusion or pneumothorax. There is no blunting of the costophrenic angles on the lateral view. IMPRESSION: No acute cardiopulmonary process. Interpreted by: Varun Grossman MD Preliminary Report By: Varun Grossman MD Electronically signed By Varun Grossman MD Dictated Date: 01/18/2023 11:53:47 AM Prelim Date: 01/18/2023 11:53:58 AM Sign Date: 01/18/2023 11:53:58 AM Ordering Provider: KENDRICK MITCHELL [facility] ([place]) Absolute lymphocyte counton 10-12-2021 Lymphocytes Auto (Unsp spec) [#/Vol] 1.62 10*3/uL 0.83-4.51 [facility] Work Phone: [phone] Basophil percentageon 2021 Basophils/100 WBC (Bld) 1.0 % 0-1 [facility] Work Phone: [phone] Bilirubin [Mass/Vol] 0.70 mg/dL 0.20-1.00 [facility] Work Phone: [phone] Comment on above: For patients on eltr ombopag therapy, use of Dimension Reading TBIL is not recommended. Chloride [Moles/Vol] 108 mmol/L 98-107 [facility] Work Phone: [phone] Eosinophils/100 WBC (Bld) 6.6 % 0-5 [facility] Work Phone: [phone] Glucose [Mass/Vol] 98 mg/dL 74-106 [facility] Work Phone: Neutrophils (Bld) [#/Vol] 2.7 10*3/uL 2.0-7.7 [facility] Work Phone: [phone] Neutrophils/100 WBC (Bld) 52.4 % 47-70 [facility] Work Phone: Potassium [Moles/Vol] 3.9 mmol/L 3.5-5.1 [facility] Work Phone: Protein [Mass/Vol] 7.4 g/dL 6.4-8.2 [place] [facility] Work Phone: Sodium [Moles/Vol] 142 mmol/L 136-145 [place] [facility] Work Phone: WBC (Bld) [#/Vol] 5.1 10*3/uL 4.4-11.0 [place] [facility] Work Phone: Blood erythrocytes count (nu mber/volume)on 10-12-2021 RBC (Bld) [#/Vol] 4.61 10*6/uL 4.2-5.4 [place] [facility] Work Phone: Blood hemoglobin measurement (mass/volume)on 10-12-2021 Hemoglobin (Bld) [Mass/Vol] 13.9 g/dL 12.0-15.0 [facility] Work Phone: Blood lymphocytes/100 leukoc yteson 10-12-2021 Lymphocytes/100 WBC (Bld) 31.6 % 19-41 [facility] Work Phone: Blood monocytes/100 leukocyt eson 10-12-2021 Monocytes/100 WBC (Bld) 8.2 % 0-10 [facility] Work Phone: Blood platelet mean volumeon 10-12-2021 Platelet mean volume (Bld) [Entitic vol] 9.8 fL 6.2-12.0 [facility] Work Phone: Determination of erythrocyte mean corpuscular volume (MCV)on 10-12-2021 MCV (RBC) [Entitic vol] 91.3 fL 81-99 [facility] Work Phone: Erythrocyte sedimentation ra mehnaz 10-12-2021 ESR (Bld) [Velocity] 16 mm/h 0-30 [facility] Work Phone: Hematocrit Auto (Bld) [Volum e fraction]on 10-12-2021 Hematocrit (Bld) [Volume fraction] 42.1 % 37-47 [facility] Work Phone: Laboratory - Chemistry and C hemistry - challengeon 10-12-2021 ALP [Catalytic activity/Vol] 53 U/L 45-117 [facility] Work Phone: ALT [Catalytic activity/Vol] 17 U/L 13-56 [facility] Work Phone: CO2 [Moles/Vol] 28.0 mmol/L 21.0-32.0 [facility] Work Phone: Globulin (S) [Mass/Vol] 3.9 g/dL 2.2-4.2 [facility] Work Phone: Urea nitrogen/Creatinine [Mass ratio] 16.3 mg/mg 10-20 [facility] Work Phone: Laboratory - Hematology and Cell countson 10-12-2021 Erythrocyte distribution width (RBC) [Entitic vol] 46.9 fL 35.1-43.9 [facility] Work Phone: Erythrocyte distribution width (RBC) [Ratio] 13.7 % 11.6-14.6 [facility] Work Phone: Immature granulocytes/100 WBC (Bld) 0.200 % 0.0-0.9 [facility] Work Phone: Comment on above: IG% - Immature Granu locytes (promyelocytes, myelocytes and metamyelocytes) > 1% indicates that a LEFT SHIFT is Present. MCH (RBC) [Entitic mass] 30.2 pg 27.0-32.0 [facility] Work Phone: Nucleated RBC/100 WBC (Bld) [Ratio] 0 % 0-5 [facility] Work Phone: MCHC Auto (RBC) [Mass/Vol]on 10-12-2021 MCHC (RBC) [Mass/Vol] 33.0 g/dL 32-36 [facility] Work Phone: No Panel Informationon 10-12 Estimated GFR (MDRD) Amer 78 mL/min >60 [facility] Work Phone: Comment on above: GFR Calc Estimated GFR (MDRD) Non-Af Amer 65 mL/min >60 [facility] Work Phone: Comment on above: Non- GFR Calc Thyroid Stimulating Hormone (TSH) 1.23 uIU/mL 0.358-3.74 [facility] Work Phone: Platelets bldon 10-12-2021 Platelets (Bld) [#/Vol] 233 10*3/uL 150-450 [facility] Work Phone: Serum or plasma albumin anthony urement (mass/volume)on 10-12-2021 Albumin [Mass/Vol] 3.5 g/dL 3.2-5.0 [facility] Work Phone: Serum or plasma albumin/glob ulin mass ratioon 10-12-2021 Albumin/Globulin [Mass ratio] 0.9 {ratio} 0.9-2.4 [facility] Work Phone: Serum or plasma calcium anthony urement (mass/volume)on 10-12-2021 Calcium [Mass/Vol] 8.4 mg/dL 8.5-10.1 [facility] Work Phone: Serum or plasma creatinine m easurement (mass/volume)on 10-12-2021 Creatinine [Mass/Vol] 0.92 mg/dL 0.55-1.02 [facility] Work Phone: Comment on above: The validity of the calculated GFR & GFRAA in patients over 70 years has not been determined. Clinical correlation is essential. Serum or plasma urea nitroge n measurement (mass/volume)on 10-12-2021 Urea nitrogen [Mass/Vol] 15 mg/dL 7-18 [facility] Work Phone: Thin prep Papanicolaou smear with manual screeningon 10-12-2021 Thin prep Papanicolaou smear with manual screening 17 U/L 15-37 [facility] Work Phone: Thin prep Papanicolaou smear with manual screening 6 5-15 [facility] Work Phone: Absolute lymphocyte counton 01-29-2021 Lymphocytes Auto (Unsp spec) [#/Vol] 1.65 10*3/uL 0.83-4.51 [facility] Work Phone: Basophil percentageon 2020 Chloride [Moles/Vol] 109 mmol/L 98-107 [facility] Work Phone: Eosinophils/100 WBC (Bld) 5.1 % 0-5 [facility] Work Phone: Glucose [Mass/Vol] 93 mg/dL 74-106 [facility] Work Phone: Comment on above: Please note revised GLUCOSE reference range effective 2017. Neutrophils (Bld) [#/Vol] 3.4 10*3/uL 2.0-7.7 [facility] Work Phone: Potassium [Moles/Vol] 3.9 mmol/L 3.5-5.1 [facility] Work Phone: Sodium [Moles/Vol] 142 mmol/L 136-145 [facility] Work Phone: WBC (Bld) [#/Vol] 5.9 10*3/uL 4.4-11.0 [facility] Work Phone: Blood erythrocytes count (nu mber/volume)on 01-29-2021 RBC (Bld) [#/Vol] 4.57 10*6/uL 4.2-5.4 [facility] Work Phone: Blood hemoglobin measurement (mass/volume)on 01-29-2021 Hemoglobin (Bld) [Mass/Vol] 13.5 g/dL 12.0-15.0 [facility] Work Phone: Blood lymphocytes/100 leukoc yteson 01-29-2021 Lymphocytes/100 WBC (Bld) 28.2 % 19-41 [facility] Work Phone: Blood monocytes/100 leukocyt eson 01-29-2021 Monocytes/100 WBC (Bld) 7.2 % 0-10 [facility] Work Phone: Blood platelet mean volumeon 01-29-2021 Platelet mean volume (Bld) [Entitic vol] 9.5 fL 6.2-12.0 [facility] Work Phone: Determination of erythrocyte mean corpuscular volume (MCV)on 01-29-2021 MCV (RBC) [Entitic vol] 91.5 fL 81-99 [facility] Work Phone: Hematocrit Auto (Bld) [Volum e fraction]on 01-29-2021 Hematocrit (Bld) [Volume fraction] 41.8 % 37-47 [facility] Work Phone: Laboratory - Chemistry and C hemistry - challengeon 01-29-2021 CO2 [Moles/Vol] 30.0 mmol/L 21.0-32.0 [facility] Work Phone: Urea nitrogen/Creatinine [Mass ratio] 17.5 mg/mg 10-20 [facility] Work Phone: Laboratory - Hematology and Cell countson 01-29-2021 Basophils/100 WBC (Unsp spec) 0.9 % 0-1 [facility] Work Phone: Erythrocyte distribution width (RBC) [Entitic vol] 47.9 fL 35.1-43.9 [facility] Work Phone: Erythrocyte distribution width (RBC) [Ratio] 14.3 % 11.6-14.6 [facility] Work Phone: Immature granulocytes/100 WBC (Bld) 0.200 % 0.0-0.9 [facility] Work Phone: Comment on above: IG% - Immature Granu locytes (promyelocytes, myelocytes and metamyelocytes) > 1% indicates that a LEFT SHIFT is Present. MCH (RBC) [Entitic mass] 29.5 pg 27.0-32.0 [facility] Work Phone: Neutrophils/100 WBC (Bld) 58.4 % 47-70 [facility] Work Phone: Nucleated RBC/100 WBC (Bld) [Ratio] 0 % 0-5 [facility] Work Phone: MCHC Auto (RBC) [Mass/Vol]on 01-29-2021 MCHC (RBC) [Mass/Vol] 32.3 g/dL 32-36 [facility] Work Phone: No Panel Informationon 01-29 Estimated GFR (MDRD) Amer 73 mL/min >60 [facility] Work Phone: Comment on above: GFR Calc Estimated GFR (MDRD) Non-Af Amer 61 mL/min >60 [facility] Work Phone: Comment on above: Non- GFR Calc Platelets bldon 01-29-2021 Platelets (Bld) [#/Vol] 220 10*3/uL 150-450 [facility] Work Phone: Serum or plasma calcium anthony urement (mass/volume)on 01-29-2021 Calcium [Mass/Vol] 8.8 mg/dL 8.5-10.1 [facility] Work Phone: Serum or plasma creatinine m easurement (mass/volume)on 01-29-2021 Creatinine [Mass/Vol] 0.97 mg/dL 0.55-1.02 [facility] Work Phone: Comment on above: The validity of the calculated GFR & GFRAA in patients over 70 years has not been determined. Clinical correlation is essential. Serum or plasma urea nitroge n measurement (mass/volume)on 01-29-2021 Urea nitrogen [Mass/Vol] 17 mg/dL 7-18 [facility] Work Phone: Thin prep Papanicolaou smear with manual screeningon 01-29-2021 Thin prep Papanicolaou smear with manual screening 3 5-15 [facility] Work Phone: Vital Signs Date Time Vital Sign Value Performing Clinician Facility 09-05-2024 16:21-0400 Body height 170.[address] Agnes Crum DO Work Phone: [facility] 09-05-2024 16:21-0400 Body mass index (BMI) [Ratio] 24.7 kg/m2 Dr. Agnes Crum DO Work Phone: [facility] 09-05-2024 16:21-0400 Body temperature 98.8 [degF] Dr. Agnes Crum DO Work Phone: [facility] 09-05-2024 16:21-0400 Body weight 71.[address] Agnes Crum DO Work Phone: [facility] 09-05-2024 16:21-0400 Diastolic blood pressure 84 mm[Hg] Dr. Agnes Crum DO Work Phone: [facility] 09-05-2024 16:21-0400 Heart rate 71 /min Dr. Agnes Crum DO Work Phone: [facility] 09-05-2024 16:21-0400 Respiratory rate 16 /min Dr. Agnes Crum DO Work Phone: [facility] 09-05-2024 16:21-0400 SaO2% (BldA) [Mass fraction] 98 % Dr. Agnes Crum DO Work Phone: [facility] 09-05-2024 16:21-0400 Systolic blood pressure 124 mm[Hg] Dr. Agnes Crum DO Work Phone: [facility] 02-10-2023 11:45-0500 Body temperature 98.78 [degF] KENDRICK MITCHELL DO [facility] 02-10-2023 11:45-0500 Diastolic Blood Pressure Non-Invasive 92 mm[Hg] KENDRICK MITCHELL DO [facility] 02-10-2023 11:45-0500 Heart rate 79 /min KENDRICK MITCHELL DO [facility] 02-10-2023 11:45-0500 Reason For Taking VItal Signs KENDRICK MITCHELL DO [facility] 02-10-2023 11:45-0500 Respiratory rate 18 /min KENDRICK MITCHELL DO [facility] 02-10-2023 11:45-0500 Systolic Blood Pressure Non-Invasive 142 mm[Hg] KENDRICK MITCHELL DO [facility] 02-10-2023 06:35-0500 Body temperature 97.88 [degF] KENDRICK MITCHELL DO [facility] 02-10-2023 06:35-0500 Diastolic Blood Pressure Non-Invasive 86 mm[Hg] KENDRICK MITCHELL DO [facility] 02-10-2023 06:35-0500 Heart rate 75 /min KENDRICK MITCHELL DO [facility] 02-10-2023 06:35-0500 Reason For Taking VItal Signs KENDRICK MITCHELL DO [facility] 02-10-2023 06:35-0500 Respiratory rate 16 /min KENDRICK MITCHELL DO [facility] 02-10-2023 06:35-0500 Systolic Blood Pressure Non-Invasive 141 mm[Hg] KENDRICK MITCHELL DO [facility] 12-28-2023 04:10-0500 Body temperature 97.88 [degF] KENDRICK MITCHELL DO [facility] 02-10-2023 04:10-0500 Diastolic Blood Pressure Non-Invasive 74 mm[Hg] KENDRICK MITCHELL DO [facility] 02-10-2023 04:10-0500 Heart rate 79 /min KENDRICK MITCHELL DO [facility] 02-10-2023 04:10-0500 Reason For Taking VItal Signs KENDRICK MITCHELL DO [facility] 02-10-2023 04:10-0500 Respiratory rate 16 /min KENDRICK MITCHELL DO [facility] 02-10-2023 04:10-0500 Systolic Blood Pressure Non-Invasive 129 mm[Hg] KENDRICK MITCHELL DO [facility] 02-09-2023 23:25-0500 Heart rate 84 /min KENDRICK MITCHELL DO [facility] 02-09-2023 19:40-0500 Heart rate 102 /min KENDRICK MITCHELL DO [facility] 02-09-2023 19:24-0500 Heart rate 86 /min KENDRICK MITCHELL DO [facility] 02-09-2023 11:29-0500 Body height 170.2 cm KENDRICK MITCHELL DO [facility] 02-09-2023 11:29-0500 Body weight 78.2 kg KENDRICK MITCHELL DO [facility] 02-09-2023 11:29-0500 Body weight 27 kg/m2 KENDRICK MITCHELL DO [facility] 02-09-2023 09:40-0500 Body temperature 97.34 [degF] KENDRICK MITCHELL DO [facility] 02-09-2023 09:30-0500 Respiratory Rate - Anes 14 br/min KENDRICK MITCHELL DO [facility] 02-09-2023 09:25-0500 Respiratory Rate - Anes 9 br/min KENDRICK MITCHELL DO [facility] 02-09-2023 09:20-0500 Respiratory Rate - Anes 3 br/min KENDRICK MITCHELL DO [facility] 02-09-2023 09:15-0500 Body temperature 97.66 [degF] KENDRICK MITCHELL DO [facility] 02-09-2023 09:10-0500 Body temperature 97.54 [degF] KENDRICK MITCHELL DO [facility] 02-09-2023 09:05-0500 Body temperature 97.38 [degF] KENDRICK MITCHELL DO [facility] 02-09-2023 06:23-0500 Body weight 27 kg/m2 KENDRICK MITCHELL DO [facility] 02-09-2023 06:20-0500 Body height 170.2 cm KENDRICK MITCHELL DO [facility] 02-09-2023 06:20-0500 Body weight 78.2 kg KENDRICK MITCHELL DO [facility] 02-09-2023 06:18-0500 Body temperature 97.88 [degF] KENDRICK MITCHELL DO [facility] 02-09-2023 06:18-0500 Heart rate 71 /min KENDRICK MITCHELL DO [facility] 01-18-2023 10:07-0500 Blood Pressure Cuff Size KENDRICK MITCHELL DO [facility] 01-18-2023 10:07-0500 Blood Pressure Location KENDRICK MITCHELL DO [facility] 01-18-2023 10:07-0500 Blood Pressure Method KENDRICK MITCHELL DO [facility] 01-18-2023 10:07-0500 Body height 170.2 cm KENDRICK MITCHELL DO [facility] 01-18-2023 10:07-0500 Body weight 79.5 kg KENDRICK MITCHELL DO [facility] 01-18-2023 10:07-0500 Body weight 27.44 kg/m2 KENDRICK MITCHELL DO [facility] 01-18-2023 10:07-0500 Diastolic Blood Pressure Non-Invasive 84 mm[Hg] KENDRICK MITCHELL DO [facility] 01-18-2023 10:07-0500 Heart rate 61 /min KENDRICK MITCHELL DO [facility] 01-18-2023 10:07-0500 Systolic Blood Pressure Non-Invasive 142 mm[Hg] KENDRICK MITCHELL DO [facility] 01-12-2023 12:52-0500 Body height 170.[address] Agnes Crum Work Phone: [facility] 01-12-2023 12:52-0500 Body mass index (BMI) [Ratio] 27.2 kg/m2 Dr. Agnes Crum Work Phone: [facility] 01-12-2023 12:52-0500 Body temperature 97.8 [degF] Dr. Agnes Crum Work Phone: [facility] 01-12-2023 12:52-0500 Body weight 78.[address] Agnes Crum Work Phone: [facility] 01-12-2023 12:52-0500 Diastolic blood pressure 90 mm[Hg] Dr. Agnes Crum Work Phone: [facility] 01-12-2023 12:52-0500 Heart rate 77 /min Dr. Agnes Crum Work Phone: [facility] 01-12-2023 12:52-0500 Respiratory rate 16 /min Dr. Agnes Crum Work Phone: [facility] 01-12-2023 12:52-0500 SaO2% (BldA) [Mass fraction] 98 % Dr. Agnes Crum Work Phone: [facility] 01-12-2023 12:52-0500 Systolic blood pressure 157 mm[Hg] Dr. Agnes rCum Work Phone: [facility] 12-30-2022 07:11-0500 Body temperature 98.1 [degF] Dr. Agnes Crum Work Phone: [facility] 12-30-2022 07:11-0500 Diastolic blood pressure 82 mm[Hg] Dr. Agnes Crum Work Phone: [facility] 12-30-2022 07:11-0500 Heart rate 73 /min Dr. Agnes Crum Work Phone: [facility] 12-30-2022 07:11-0500 Respiratory rate 14 /min Dr. Agnes Crum Work Phone: [facility] 12-30-2022 07:11-0500 SaO2% (BldA) [Mass fraction] 98 % Dr. Agnes Crum Work Phone: [facility] 12-30-2022 07:11-0500 Systolic blood pressure 158 mm[Hg] Dr. Agnes Crum Work Phone: [facility] 10-15-2022 16:52-0400 Body mass index (BMI) [Ratio] 27.2 kg/m2 Dr. Agnes Crum Work Phone: [facility] 10-15-2022 16:52-0400 Body temperature 98.6 [degF] Dr. Agnes Crum Work Phone: [facility] 10-15-2022 16:52-0400 Body weight 78.[address] Agnes Crum Work Phone: [facility] 10-15-2022 16:52-0400 Diastolic blood pressure 83 mm[Hg] Dr. Agnes Crum Work Phone: [facility] 10-15-2022 16:52-0400 Heart rate 73 /min Dr. Agnes Crum Work Phone: [facility] 10-15-2022 16:52-0400 Respiratory rate 17 /min Dr. Agnes Crum Work Phone: [facility] 10-15-2022 16:52-0400 SaO2% (BldA) [Mass fraction] 96 % Dr. Agnes Crum Work Phone: [facility] 10-15-2022 16:52-0400 Systolic blood pressure 147 mm[Hg] Dr. Agnes Crum Work Phone: [facility] Encounters Encounter Date Encounter Type Care Provider Facility Start: 01-17-2025 ambulatory Agnes Crum Facility: [facility] Start: 10-30-2024 End: 10-30-[address] Agnes Crum DO Work Phone: -Outpatient Bone Densitometry Start: 10-30-2024 End: 10-30-[address] Agnes Crum DO -Outpatient Bone Densitometry Work Phone: Start: 10-30-2024 End: 10-30-2024 ambulatory Agnes Crum Facility:[facility] Start: 10-25-2024 End: 10-25-[address] Agnes Crum DO Work Phone[facility] Start: 10-25-2024 End: 10-25-[address] Ag[facility] C[facility] Start: 10-25-2024 End: 10-25-2024 ambulatory Agnes Crum Facility:[facility] Start: 10-10-2024 End: 10-10-[address] Agnes Crum DO Work Phone: -Outpatient Breast Imaging Start: 10-10-2024 End: 10-10-[address] Agnes Crum DO -Outpatient Breast Imaging Work Phone: Start: 10-10-2024 End: 10-10-2024 ambulatory Agnes Crum Facility:[facility] Start: 09-05-2024 End: 09-05-2024 Patient encounter procedure Lamont HAYN[facility] Work Phone: Start: 09-05-2024 End: 09-05-[address] Agnes Crum DO Work Phone: [facility] Start: 02-13-2024 End: 02-13-2024 ambulatory Titi Patel Facility:[facility] Start: 01-05-2024 End: 01-05-2024 ambulatory Migel HAYNES Facility:[facility] Start: 12-26-2023 End: 12-26-2023 ambulatory Lamont HAYNES Facility:[facility] Start: 04-26-2023 End: 04-26-[address] Agnes Crum Work Phone: [facility] Work Phone: Start: 04-26-2023 End: 04-26-[address] Agnes Crum Work Phone: [facility]-Physical Therapy Work Phone: Start: 04-26-[address] Agnes Crum Work Phone: [facility]-Physical Therapy Work Phone: Start: 02-09-2023 End: 02-10-2023 ambulatory SHARI ANDERSON APRN-YOEL Facility:[facility] Start: 02-09-2023 End: 02-10-2023 Observation KENDRICK MITCHELL DO [facility] Start: 01-18-2023 End: 01-19-[address] AGNES CRUM DO Facility:[facility] Start: 01-18-2023 End: 01-18-2023 Admission to establishment KENDRICK MITCHELL [facility] Start: 01-12-2023 End: 01-12-2023 Emergency department patient visit Dr. Agnes Crum Work Phone: [facility]-Emergency Department Work Phone: Start: 12-30-2022 End: 12-30-[address] Agnes Crum Work Phone: [facility] Work Phone: Start: 12-03-[address] Agnes Crum Work Phone: [facility]-Physical Therapy Work Phone: Start: 10-27-2022 End: 10-27-[address] Agnes Crum Work Phone: [facility]-Radiology, [facility] Work Phone: Start: 10-15-2022 End: 10-15-[address] Agnes Crum Work Phone: [facility] Work Phone: Start: 03-04-2022 End: 03-04-2022 ambulatory [facility] Work Phone: Start: 03-04-2022 End: 03-04-2022 Patient encounter procedure [facility]-Laboratory, Specimen Start: 10-12-2021 End: 10-12-2021 ambulatory [facility] Work Phone: Start: 10-12-2021 End: 10-12-2021 Patient encounter procedure [facility]-Laboratory Start: 10-05-2021 End: 10-05-2021 ambulatory [facility] Work Phone: Start: 10-05-2021 End: 10-05-2021 Discharged Recurring [facility]-Occupational Therapy Start: 10-05-2021 Registered Recurring [facility]-Occupational Therapy Start: 03-03-[address] Agnes Crum Work Phone: [facility]-Occupational Therapy Start: 01-29-[address] Agnes Crum Work Phone: [facility]-Pulmonary Services/Neurology Start: 01-29-2021 Non-patient / Non-visit Dr. Mt Crum Work Phone: [facility] Procedures Date Procedure Procedure Detail Performing Clinician Start: 10-30-2024 Dual energy X-ray absorptiometry Dr. Agnes Crum DO Work Phone: Start: 10-25-2024 Vitamin D, 25-hydrox y measurement Dr. Agnes Crum DO Work Phone: Comment on above: Vitamin D StatusDefi ciency: <20 ng/mL (50nmol/L)Insufficiency: 20-30 ng/mL (50-75 nmol/L)Sufficiency: 30-100 ng/mL (75-250 nmol/L)Toxicity: >100 ng/mL (>250 nmol/L) Start: 10-10-2024 Screening mammography Sagar Crum DO Work Phone: Start: 02-09-2023 Cervical arthrodesis by anterior technique KENDRICK MITCHELL DO Start: 10-27-2022 X-ray of cervical spine Dr. Agnes Crum Work Phone: Start: 01-29-2021 Plain chest X-ray Dr. Bill Crum Work Phone: Appendectomy KENDRICKTARUN Keith O Cholecystectomy KENDRICK BELTRE S DO Hysterectomy KENDRICK Keith O Neoplasm of ovary (disorder) KENDRICK STEPHEN DO Comment on above: RIGHT Tonsillectomy and adenoidectomy KENDRICK MITCHELL DO Plan of Treatment Date Care Activity Detail Author Start: 01-12-2023 [facility] Patient Education Cervical Spine Tx ED Back and Neck Pain, General [facility] Work Phone: Patient referral [facility] Work Phone: Immunizations Immunization Date Immunization Notes Care Provider [facility] 12-06-2022 influenza virus vaccine, unspecified formulation KENDRICK MITCHELL DO [facility] 12-06-2022 SARS-CoV-2 (COVID-19 ) [id number] KENDRICK MITCHELL DO [facility] 12-22-2021 influenza virus vaccine, unspecified formulation KENDRICK MITCHELL DO [facility] 02-17-2021 SARS-CoV-2 mRNA (tozinameran) vaccine KENDRICK MITCHELL DO [facility] 05-29-2020 SARS-CoV-2 mRNA (tozinameran) vaccine KENDRICK MITCHELL DO [facility] 05-08-2020 SARS-CoV-2 mRNA (tozinameran) vaccine KENDRICK MITCHELL DO [facility] 11-01-2019 influenza virus vaccine, unspecified formulation KENDRICK CUELLARTS DO [facility] 02-02-2019 pneumococcal conjuga te vaccine, 13 valent KENDRICK CUELLARTS DO [facility] Payers Date Payer Category Payer Self-pay [id number] 2023 Private Health Insurance [id number] 2022 Unknown [id number] 2018 Medicare [id number] 1955 Unknown [id number] 2.16.8 [id number] 1955 Unknown [id number] 2.16.8 [id number] 1955 Unknown [id number] 2.16.8 [id number] Private Health Insurance [id number] Unknown [id number] Unknown [id number] 2.16.8 [id number] Unknown [id number] 2.16.8 [id number] Unknown [id number] 2.16.8 [id number] Unknown [id number] 2.16.8 [id number] Unknown [id number] 2.16.8 [id number] Unknown [id number] 2.16.8 [id number] Unknown [id number] 2.16.8 [id number] Unknown [id number] 2.16.8 [id number] Social History Date Type Detail Facility Start: 01-27-2020 End: 01-12-2023 Tobacco smoking status UTIS Unknown if ever smoked [facility] Start: 1955 Sex Assigned At Female [facility] Start: 01-18-2023 Tobacco smoking status Never s moked tobacco (finding) [facility] Sex Assigned At Sex [facility] Start: 09-05-2024 Tobacco smoking stat us UTIS Ex-smoker (finding) [facility] Sex Female 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, 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, 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, 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, Personal ADL, Shopping, Social participation [facility] 02-09-2023 Functional Status Identified as high risk, Fall ID band on, Room located near nursing station, Bed alert on, Door open, Non-Slip footwear [facility] 02-09-2023 Functional Status Patient Identi fied Identification band [facility] 02-09-2023 Functional Status Maintained [facility] 01-18-2023 Functional Status Sensory Defici ts Hearing deficit, left ear, Hearing deficit, right ear [facility] Mental Status Date Assessment Result Facility 02-10-2023 Mental Status Oriented x 4 [facility] 02-09-2023 Mental Status [facility] 02-09-2023 Mental Status [facility] 01-12-2023 Cognitive function Level Of Cons ciousness Awake;Alert;Appropriate;Follow s Commands [facility] Work Phone: Clinical Notes 01-18-2023 to 04-26-2023 Note Date & Type Note Facility 04-26-2023 Discharge summary Note Date/Time April 26, 2023 11:03am [facility] Physical Therapy [facility] [address] [place] [address] / REHABILITATION SERVICES DISCHARGE SUMMARY MR#: [id number] Acct: [id number] Name: JOSHUA NOGUEIRA Rep #: [id number] 05 : 1955 67 From: Cert. DEN TylerT, OCS Referring Dr.: Dr. Kendrick Mitchell DO Status: REG RCR Insurance: MEDICARE PART A B MEDICARE SUPPLEMENT PLAN Discharge Summary D/C summary: It has been my pleasure to treat JOSHUA NOGUEIRA referred by Dr. Kendrick Mitchell DO, with the diagnosis of SPINAL STENOSIS,CERVICAL ,CERVICAL DISC DEGENERATION C5-6,SPONDYLOLISTHESIS for a total of 9 visit(s). Discharge Date: 04/26/23 Please see the following information for a summary of their discharge status. Subjective Subjective: Doing well RTW Pain Bilateral Neck: Pain Intensity (Out of 10): 0 Overall Improvement % Improvement: 90 Objective Objective/Function: POSTURE: mild forward posture PALAPTION: tender UT/levator NEURO: c/o mild paresthesia thumb right ,reflexes C5-6 ,1/3 C7 1/3 AROM: BUE WFL CERVICAL ROM: flexion MIN loss ,rotation mod loss ,lateral flexion mIN ,extension MIN/MOD MMT: grossly 4/5 except shoulders 4-/5 [employer]MENT STRENGTH: right 45# ,left 45 # dynameter Goals Goal 1:: Patient to be I with HEP for cervical spine Goal Progress: Goal Met Goal 2:: Patient to demonstrate 70% improvement with increase function and less pain. Goal Progress: Goal Met Goal 3:: Patient to improve cervical ROM for function of recovery for driving and job demnads Goal Progress: Goal Met Goal 4:: Patient to RTW without limiations Goal Progress: Goal Met Goal 5:: Patient to improve neck oswestry score by 5 points to improve QOL and function Goal Progress: Goal Met Plan Plan: D/C to HEP D/C Information Discharge Comments: HEP d/c sentence: If there are questions or concerns regarding this patient's physical therapy, please feel free to call me at [phone]. Thank you for the referral of thispatient. Sincerely, Jm Araya PT, Cert MDT, OCS Balance/Gait/Functional tests Balance/Special Test Scores Oswestry Neck Score: 22 Improvement % Improvement: 90 <Electronically signed by Jm Araya PT, Cert. MDT, OCS> 04/26/23 [id number] CC: Dr. Kendrick Mitchell, DO; Dr. Agnes Crum, DO ~ TAMARA Signed [facility] Work Phone: [phone]) 369-888212-28-2023 Hospital Discharge instructions Patient Education 02/10/2023 09:51:03 Anterior Cervical Diskectomy and Fusion, Care After Anterior Cervical Diskectomy and Fusion, Care After This sheet gives you information about how to care for yourself after your procedure. Your health care provider may also give you more specific instructions. If you have problems or questions, contact your health care provider. What can I expect after the procedure? After the procedure, it is common to have: Neck pain. Discomfort when swallowing. Slight hoarseness. Follow these instructions at home: If you have a neck brace: Wear it as told by your health care provider. Remove it only as told by your health care provider. Keep the brace clean and dry. Ask your health care provider if you should remove the brace to bathe or shower. Incision care Follow instructions from your health care provider about how to take care of your incision. Make sure you: ?Wash your hands with soap and water before and after you change your bandage (dressing). If soap and water are not available, use hand finisher polisher. ?Change your dressing as told by your health care provider. ?Leave stitches (sutures), skin glue, or adhesive strips in place. These skin closures may need to stay in place for 2 weeks or longer. If adhesive strip edges start to loosen and curl up, you may trim the loose edges. Do not remove adhesive strips completely unless your health care provider tells you to do that. Check your incision area every day for signs of infection. Check for: ?Redness, swelling, or pain. ?Fluid or blood. ?Warmth. ?Pus or a bad smell. Managing pain, stiffness, and swelling Take ntju-efe-bbjtxts and prescription medicines only as told by your health care provider. If directed, put ice on the injured area. ?If you have a removable brace, remove it as told by your health care provider. ?Put ice in a plastic bag. ?Place a towel between your skin and the bag. ?Leave the ice on for 20 minutes, 2 3 times a day. Activity Return to your normal activities as told by your health care provider. Ask your health care provider what activities are safe for you. Do exercises as told by your health care provider. Do not take baths, swim, or use a hot tub until your health care provider approves. Do not lift anything that is heavier than 10 lb (4.5 kg), or the limit that you are told, until your health care provider says that it is safe. General instructions Ask your health care provider if the medicine prescribed to you: ?Requires you to avoid driving or using heavy machinery. ?Can cause constipation. You may need to take actions to prevent or treat constipation, such as: ?Drink enough fluid to keep your urine pale yellow. ?Take pvay-fqe-aumbgnb or prescription medicines. ?Eat foods that are high in fiber, such as beans, whole grains, and fresh fruits and vegetables. ?Limit foods that are high in fat and processed sugars, such as fried and sweet foods. Do not use any products that contain nicotine or tobacco, such as cigarettes, e- cigarettes, and chewing tobacco. These can delay healing. If you need help quitting, ask your health care provider. Keep all follow-up visits and physical therapy appointments as told by your health care provider. This is important. Contact a health care provider if you have: A fever. Redness, swelling, or pain around your incision. Fluid or blood coming from your incision. Pus or a bad smell coming from your incision. Pain that is not controlled by your pain medicine. Increasing hoarseness or trouble swallowing. Get help right away if you have: Severe pain. Sudden numbness or weakness in your arms. Warmth, tenderness, or swelling in your calf. Chest pain. Difficulty breathing. Summary After the procedure, it is common to have neck pain, discomfort when swallowing, and slight hoarseness. Follow instructions from your health care provider about how to take care of your incision. Check your incision area every day for signs of infection. Return to your normal activities as told by your health care provider. Ask your health care provider what activities are safe for you. Contact a health care provider if you have signs of infection at your incision. This information is not intended to replace advice given to you by your health care provider. Make sure you discuss any questions you have with your health care provider. Document Released: 02/27/2016 Document Revised: 10/26/2018 Document Reviewed: 10/26/2018 [employer] Patient Education 2020 [employer]. Follow Up Care 12/15/2022 08:19:25 With:KENDRICK MITCHELL DO, Orthopedic Address: [address] [place] [address], [address] [facility] [place] [address]- [phone] When:03/02/2023 11:15:00 Comments:This is your post-op appointment. Follow-up as scheduled. [facility] 12-28-2023 Note Discharge Instructions Thank you for allowing [facility] to assist you with your healthcare needs. The following is importantdischarge information regarding your hospital visit. Your Care Team Inder Mitchell DO Your Diagnosis Anxiety Cervical spondylosis Hypothyroid What to do next Instructions From Your Doctor Activity: Do not drive, smoke, operate machinery, return to work, or engage in activities that require you lelia alert when taking narcotics, pain relievers or muscle relaxants No reaching overhead Do not turn your head from side to side, turn your upper body Wear both IZZY hose continuously for 6 weeks Remove during shower time and replaced with a clean pair Wash with soap and water, then hang dry for next use No heavy lifting, pulling, or pushing more than 10 pounds for 3 months Must wear your cervical collar at all times Call Dr. Mitchell office if: You have any difficulty breathing, swallowing, or swelling of your throat You have a sore throat that does not go away with ice chips, lozenges, pain meds etc. You fall at home, call immediately You experience numbness and/or tingling in your arms or legs that is changed or increased after discharge You develop chills, and/or fever greater than 100 degrees You have drainage from your incision, especially bloody or thick yellow You have increased redness or swelling around the incision You have severe or continued headaches, especially if no headaches were present in the hospital You start having increased pain that is not relieved by your medicine You run out of pain medication Care for your incision: Never put anything on your incision, no creams lotions or antibiotic ointment No hot tubs, swimming, or soaking in water for 6 weeks, or until your incision is healed To shower, cover your incision with a 4 x 4, Tegaderm dressing, and you must wear your cervical collar Change the dressing to your neck daily using a dry 4 x 4 and tape Wear your bone growth stimulator if given 1 daily as instructed If you need to shave using electric razor, do not tilt your head back or shave over the incision General reminders: Do not take any medications, herbal, prescription, or lbxq-rai-pgxsxmx unless prescribed for the next 12 weeks Remember to take your pain medication and/or muscle relaxants as ordered to keep your pain under control No NSAIDs for 3 months, will interfere with the fusion. Swelling around the nerves can cause continued numbness and tingling for days or weeks after surgery Follow Up Appointments Follow Up with KENDRICK MITCHELL DO, Orthopedic When 03/02/2023 11:15 AM EST Why: This is your post-op appointment. Follow-up as scheduled. Where: [address] [place] [address], [address] [facility] [place] [address]- [phone] The Following Activity and Diet Have Been Ordered for You No qualifying data available. No qualifying data available. The Following Treatments Have Been Ordered for You Discharge Labs No qualifying data available. Discharge Radiology No qualifying data available. Other Therapies No qualifying data available. Post Acute Orders No qualifying data available. Allergies Latex (RASH) Medications Please ask your primary doctor or pharmacist before taking any other medication not listed, including over the counter drugs, herbal medications, vitamins and or supplements as they may interact withyour home medications. What How Much When Why Instructions Last Dose Unchanged acetaminophen- hydrocodone (Gurnee 325- 5 mg oral tablet) 1 tab(s) by mouth Every 6 hours as needed for for pain Cervical spondylosis Duration: 7 Days Pickup at [facility] Unchanged citalopram (citalopram 20 mg oral tablet) 1 tab(s) by mouth Once a day Unchanged gabapentin (gabapentin 100 mg oral capsule) 2 cap by mouth Three (3) times a day Unchanged levothyroxine (levothyroxine 75 mcg (0.075 mg) oral tablet) 1 tab(s) by mouth Once a day Pharmacy Information [facility] [address]: [address] [place], [place] [phone] Please take this list to your next doctor s visit. Bring all medications you take, including over the counter medications, herbals and other supplements with you to your doctor s visit. Patients and families are reminded to discard old lists and to update any records with all medication providers or retail pharmacies. Medication Leaflets acetaminophen and hydrocodone (a SEET a MIN [place] [facility] [place] KEVIN done) Lortab Elixir, Verdrocet What is the most important information I should know about acetaminophen and hydrocodone? MISUSE OF OPIOID MEDICINE CAN CAUSE ADDICTION, OVERDOSE, OR . Keep the medication in a place where others cannot get to it. Taking opioid medicine during may cause life-threatening withdrawal symptoms in the . Fatal side effects can occur if you use opioid medicine with alcohol, or with other drugs that cause drowsiness or slow your breathing. Stop taking this medicine and call your doctor right away if you have skin redness or a rash that spreads and causes blistering and peeling. What is acetaminophen and hydrocodone? Acetaminophen and hydrocodone is a combination medicine used to relieve moderate to severe pain. Acetaminophen and hydrocodone contains an opioid medicine, and may be habit-forming. Acetaminophen and hydrocodone may also be used for purposes not listed in this medication guide. What should I discuss with my healthcare provider before taking acetaminophen and hydrocodone? You should not use this medicine if you are allergic to acetaminophen or hydrocodone, or if you have: severe asthma or breathing problems; or a blockage in your stomach or intestines. Tell your doctor if you have ever had: breathing problems, sleep apnea (breathing stops during sleep); liver disease; a drug or alcohol addiction; kidney disease; a head injury or seizures; urination problems; or problems with your thyroid, pancreas, or gallbladder. If you use opioid medicine while you are , your baby could become dependent on the drug. This can cause life-threatening withdrawal symptoms in the baby after it is born. Babies born dependent on opioids may need medical treatment for several weeks. Ask a doctor before using opioid medicine if you are . Tell your doctor if you notice severe drowsiness or slow breathing in the nursing baby. How should I take acetaminophen and hydrocodone? Follow all directions on your prescription label. Never take this medicine in larger amounts, or for longer than prescribed. An overdose can damage your liver or cause . Tell your doctor if you feel an increased urge to use more of this medicine. Never share this medicine with another person, especially someone with a history of drug abuse or addiction. MISUSE CAN CAUSE ADDICTION, OVERDOSE, OR . Keep the medicine in a place where others cannot get to it. Selling or giving away this medicine is against the law. Measure liquid medicine carefully. Use the dosing syringe provided, or use a medicine dose-measuring device (not a kitchen spoon). If you need surgery or medical tests, tell the doctor ahead of time that you are using this medicine. You should not stop using this medicine suddenly. Follow your doctor's instructions about tapering your dose. Store at room temperature away from moisture and heat. Keep track of your medicine. You should be aware if anyone is using it improperly or without a prescription. Do not keep leftover opioid medication. Just one dose can cause in someone using this medicine accidentally or improperly. Ask your pharmacist where to locate a drug take-back disposal program.If there is no take-back program, flush the unused medicine down the toilet. What happens if I miss a dose? Since this medicine is used for pain, you are not likely to miss a dose. Skip any missed dose if itis almost time for your next dose. Do not use two doses at one time. What happens if I overdose? Seek emergency medical attention or call the Poison Help line at . An overdose of this medicine can be fatal, especially in a child or other person using the medicine without a prescription. Overdose symptoms may include nausea, vomiting, sweating, severe drowsiness, pinpoint pupils, slow breathing, or no breathing. Your doctor may recommend you get naloxone (a medicine to reverse an opioid overdose) and keep it with you at all times. A person caring for you can give the naloxone if you stop breathing or don't wake up. Your caregiver must still get emergency medical help and may need to perform CPR (cardiopulmonary resuscitation) on you while waiting for help to arrive. Anyone can buy naloxone from a pharmacy or local health department. Make sure any person caring foryou knows where you keep naloxone and how to use it. What should I avoid while taking acetaminophen and hydrocodone? Avoid driving or operating machinery until you know how this medicine will affect you. Dizziness ordrowsiness can cause falls, accidents, or severe injuries. Do not drink alcohol. Dangerous side effects or could occur. Ask a doctor or pharmacist before using any other medicine that may contain acetaminophen (sometimes abbreviated as APAP). Taking certain medications together can lead to a fatal overdose. What are the possible side effects of acetaminophen and hydrocodone? Get emergency medical help if you have signs of an allergic reaction: hives; difficulty breathing; swelling of your face, lips, tongue, or throat. Opioid medicine can slow or stop your breathing, and may occur. A person caring for you should give naloxone and/or seek emergency medical attention if you have slow breathing with long pauses,blue colored lips, or if you are hard to wake up. In rare cases, acetaminophen may cause a severe skin reaction that can be fatal. This could occur even if you have taken acetaminophen in the past and had no reaction. Stop taking this medicine and call your doctor right away if you have skin redness or a rash that spreads and causes blistering andpeeling. Call your doctor at once if you have: noisy breathing, sighing, shallow breathing, breathing that stops; a light-headed feeling, like you might pass out; liver problems--nausea, upper stomach pain, tiredness, loss of appetite, dark urine, perez-colored stools, jaundice (yellowing of the skin or eyes); low cortisol levels-- nausea, vomiting, loss of appetite, dizziness, worsening tiredness or weakness; o high levels of serotonin in the body--agitation, hallucinations, fever, sweating, shivering, fast heart rate, muscle stiffness, twitching, loss of coordination, nausea, vomiting, diarrhea. Serious breathing problems may be more likely in older adults and in those who are debilitated or have wasting syndrome or chronic breathing disorders. Common side effects include: dizziness, drowsiness, feeling tired; nausea, vomiting, stomach pain; constipation; or headache. This is not a complete list of side effects and others may occur. Call your doctor for medical advice about side effects. You may report side effects to FDA at 7-716-WPD-6321. What other drugs will affect acetaminophen and hydrocodone? You may have breathing problems or withdrawal symptoms if you start or stop taking certain other medicines. Tell your doctor if you also use an antibiotic, antifungal medication, heart or blood pressure medication, seizure medication, or medicine to treat HIV or hepatitis C. Opioid medication can interact with many other drugs and cause dangerous side effects or . Be sure your doctor knows if you also use: cold or allergy medicines, bronchodilator asthma/COPD medication, or a diuretic ('water pill'); medicines for motion sickness, irritable bowel syndrome, or overactive bladder; other opioids--opioid pain medicine or prescription cough medicine; a sedative like Valium--diazepam, alprazolam, lorazepam, Xanax, Klonopin, Versed, and others; drugs that make you sleepy or slow your breathing--a sleeping pill, muscle relaxer, medicine to treat mood disorders or mental illness; drugs that affect serotonin levels in your body--a stimulant, or medicine for depression, Parkinson's disease, migraine headaches, serious infections, or nausea and vomiting. This list is not complete. Other drugs may affect acetaminophen and hydrocodone, including prescription and hehz-snm-lwkrthr medicines, vitamins, and herbal products. Not all possible interactions are listed here. Where can I get more information? Your doctor or pharmacist can provide more information about acetaminophen and hydrocodone. Remember, keep this and all other medicines out of the reach of children, never share your medicines with others, and use this medication only for the indication prescribed. Every effort has been made to ensure that the information provided by [employer]. [employer]') is accurate, up-to-date, and complete, but no guarantee is made to that effect. Drug information contained herein may be time sensitive. [employer] information has been compiled for use by healthcare practitioners and consumers in the [place] and therefore [employer] does not warrant that uses outside of the [place] are appropriate, unless specifically indicated otherwise. [employer] drug information does not endorse drugs, diagnose patients or recommend therapy. [employer] drug information isan informational resource designed to assist licensed healthcare practitioners in caring for their p atients and/or to serve consumers viewing this service as a supplement to, and not a substitute for, the expertise, skill, knowledge and judgment of healthcare practitioners. The absence of a warningfor a given drug or drug combination in no way should be construed to indicate that the drug or drug combination is safe, effective or appropriate for any given patient. [employer] does not assume any responsibility for any aspect of healthcare administered with the aid of information [employer] provides. The information contained herein is not intended to cover all possible uses, directions, precautions, warnings, drug interactions, allergic reactions, or adverse effects. If you have questions about the drugs you are taking, check with your doctor, nurse or pharmacist. Copyright 9093-2777 [employer]. Version: 19.. Revision Date: 10/04/2022. Education Materials Anterior Cervical Diskectomy and Fusion, Care After This sheet gives you information about how to care for yourself after your procedure. Your health care provider may also give you more specific instructions. If you have problems or questions, contact your health care provider. What can I expect after the procedure? After the procedure, it is common to have: Neck pain. Discomfort when swallowing. Slight hoarseness. Follow these instructions at home: If you have a neck brace: Wear it as told by your health care provider. Remove it only as told by your health care provider. Keep the brace clean and dry. Ask your health care provider if you should remove the brace to bathe or shower. Incision care Follow instructions from your health care provider about how to take care of your incision. Make sure you: ? Wash your hands with soap and water before and after you change your bandage (dressing). If soap and water are not available, use hand finisher polisher. ? Change your dressing as told by your health care provider. ? Leave stitches (sutures), skin glue, or adhesive strips in place. These skin closures may need to stay in place for 2 weeks or longer. If adhesive strip edges start to loosen and curl up, you may trim the loose edges. Do not remove adhesive strips completely unless your health care provider tells you to do that. Check your incision area every day for signs of infection. Check for: ? Redness, swelling, or pain. ? Fluid or blood. ? Warmth. ? Pus or a bad smell. Managing pain, stiffness, and swelling Take iuog-azf-vbzdukx and prescription medicines only as told by your health care provider. If directed, put ice on the injured area. ? If you have a removable brace, remove it as told by your health care provider. ? Put ice in a plastic bag. ? Place a towel between your skin and the bag. ? Leave the ice on for 20 minutes, 2 3 times a day. Activity Return to your normal activities as told by your health care provider. Ask your health care provider what activities are safe for you. Do exercises as told by your health care provider. Do not take baths, swim, or use a hot tub until your health care provider approves. Do not lift anything that is heavier than 10 lb (4.5 kg), or the limit that you are told, until your health care provider says that it is safe. General instructions Ask your health care provider if the medicine prescribed to you: ? Requires you to avoid driving or using heavy machinery. ? Can cause constipation. You may need to take actions to prevent or treat constipation, such as: ? Drink enough fluid to keep your urine pale yellow. ? Take vmnz-ryw-buknukb or prescription medicines. ? Eat foods that are high in fiber, such as beans, whole grains, and fresh fruits and vegetables. ? Limit foods that are high in fat and processed sugars, such as fried and sweet foods. Do not use any products that contain nicotine or tobacco, such as cigarettes, e- cigarettes, and chewing tobacco. These can delay healing. If you need help quitting, ask your health care provider. Keep all follow-up visits and physical therapy appointments as told by your health care provider. This is important. Contact a health care provider if you have: A fever. Redness, swelling, or pain around your incision. Fluid or blood coming from your incision. Pus or a bad smell coming from your incision. Pain that is not controlled by your pain medicine. Increasing hoarseness or trouble swallowing. Get help right away if you have: Severe pain. Sudden numbness or weakness in your arms. Warmth, tenderness, or swelling in your calf. Chest pain. Difficulty breathing. Summary After the procedure, it is common to have neck pain, discomfort when swallowing, and slight hoarseness. Follow instructions from your health care provider about how to take care of your incision. Check your incision area every day for signs of infection. Return to your normal activities as told by your health care provider. Ask your health care provider what activities are safe for you. Contact a health care provider if you have signs of infection at your incision. This information is not intended to replace advice given to you by your health care provider. Make sure you discuss any questions you have with your health care provider. Document Released: 02/27/2016 Document Revised: 10/26/2018 Document Reviewed: 10/26/2018 [employer] Patient Education 2020 [employer]. Additional Information VACCINATE! IT SAVES LIVES! Members of the community who have not yet received the COVID-19 vaccine and would like to receive it can visit one of [facility] vaccine clinics. There are many vaccine clinic locations within the [facility]. For locations and available times, please visit [email or web address].[place].gov/. It is important to note that some COVID mobile vaccine clinics are held outdoors and may be canceled in rainy or stormy conditions. To learn more about pediatric vaccinations (ages 5-11), we invite you to visit the [facility] webpage. [email or web address] learn more about the COVID-19 vaccine, we invite you to visit the CDC website for a list of frequently asked questions.https://www.cdc.gov/coronavirus/2019-ncov/vaccines/faq.html [employer] Patient Portal Access Instructions: Stay connected with your healthcare team and access your personal medical information anytime with the [employer] Patient Portal. Please follow the directions below to create your [employer] account: 1.Access the email account you provided upon registration to the hospital/physician office.2.Look for an invitation email from [facility].3.Open the email and access the invitation link: [facility].4.Fill in the required short to create your account. To access your account, visit [email or web address]. Click the blue button labeled "Access Patient Portal" and then log in with the username and password that you created in the steps above. You will be able to view your test results, lab results, a summary of your visits, upcoming appointments and more. There is also a convenient messaging option where you can send secure messages to your p rovider. In addition, you will have the ability to download any documents or summaries to your computer and/or send the information securely to a physician. Remember that your healthcare information is confidential, so carefully consider who you will allowto register on the [facility] [email or web address] Patient Portal for access to your information. You can also access the [facility] on the [facility]. Simply click on "Patient Portal" and then log into your account. If you would like to receive a full copy of your medical records, please contact the [facility] Medical Records Department by calling [phone], Tuesday through Tuesday between 8 a.m. and 4:30 p.m. HOW TO SAFELY DISPOSE OF PRESCRIPTION MEDICATIONS Please use one of the following methods to safely dispose of your unused medications. 1.Use a drug disposal kit: the drug disposal pouch allows you to safely discard your old and unuseddrugs. Ask your nurse to give you one when you are discharged.2.Visit a local take-back location: Many local pharmacies and police departments have programs that collect old and unwanted prescriptiondrugs. Call your local pharmacy or go to http://bit.GINKGOTREE/8Z0Wc1a to find one close to you.3.Make use of household items: Use cat litter or old coffee grounds to dispose medications if other options arenot available. Mix your drugs with these household products, seal them in an airtight container andthrow it into the garbage. Call [facility]: [phone] to be sure your drugs can be disposed of in this way. Some medicines may require a different approach.4.Never flush your medications down the toilet. IF YOU HAVE BEEN PRESCRIBED AN OPIOID FOR PAIN If you have been prescribed an opioid (such as hydrocodone, oxycodone or morphine), it is critical to understand the possible side effects and risks of opioid pain medications. Even when taken as directed, opioids can have several side effects including: Tolerance, meaning you might need to take more of a medication for the same pain relief. Nausea, vomiting and/or constipation. Sleepiness, dizziness, dry mouth, confusion, depression or itching. Physical dependence, meaning you have withdrawal symptoms when a medication is stopped, can develop within a few days. KNOW YOUR RESPONSIBILITIES It is important to know exactly how much and how often to take the opioid pain medications you are prescribed. Never take opioids in higher amounts or more often than prescribed. Do not combine opioids with alcohol or other drugs that cause drowsiness, such as benzodiazepines, also known as benzos, including diazepam and alprazolam, muscle relaxants or sleep aids. Never sell or share prescription opioids. This is illegal. Store opioids in a secure place and out of reach of others (including children, family, friends and visitors). The last page of this document has been signed and retained as a CHART COPY. Signatures Patient Education Materials Anterior Cervical Diskectomy and Fusion, Care After Medication Leaflets acetaminophen and hydrocodone My discharge plan and instructions have been reviewed and explained to me and I,JOSHUA NOGUEIRA understand my current condition and have read and understand these discharge instructions. I have received a written copy of the plan/instructions. If I have questions, I am aware that I should contact my doctor. Patient/Back Closer Signature: Date/Time: Relationship to Patient: Witness Name/Signature: Date/Time: [facility]12-28-2023 Note Date of Service 02/10/2023 Chief Complaint post-op Subjective Patient seen and evaluated this morning while resting in bed. She states that she is doing quite well this morning. She denies any significant pain and feels that she is well-controlled on oral medications. She denies any difficulty breathing, cough, chest pain, abdominal pain, nausea or dysuria. Her anterior neck surgical dressing is dry and intact. Patient states that Dr. Mitchell called in to check on her this morning and stated that she is clear to go home as long as she is cleared by therapy.She denies any new problems or concerns. Labs and vital signs reviewed. Physical exam was unremarkable. From hospitalist perspective, patient is medically optimized for discharge home today. Will defer to primary team to make final decision on discharge. All questions answered. Objective Vitals and Measurements T: 36.6 C (Oral) TMIN: 36.2 C (Oral) TMAX: 36.6 C (Oral) HR: 75(Monitored) RR: 16 BP: 141/86 SpO2: 94% HT: 170.2 cm WT: 78.2 kg BMI: 27 Intake and Output 7AM Yesterday to 7AM Today Intake and Output (Last 24 hours) Intake Administration Information 1000.00 Output Urine Count 3.00 Total Summary Total Intake 1000.00 Total Output 0.00 Fluid Balance 1000.00 Physical Exam General: No acute distress. Patient is alert and appropriate. Skin: No rash. Skin is warm, dry and intact. HEENT: Head is normocephalic, atraumatic. Pupils are equal, round and reactive. Neck: Anterior surgical dressing is dry and intact. C-collar in place. Lungs: Bilaterally clear but diminished without crepitation or wheeze. Unlabored. Heart: Heart is regular rhythm, S1, S2. No murmurs, gallops or rubs. Abdomen: Abdomen is soft, nontender. Bowels sounds present in all quadrants. Extremities: No clubbing, cyanosis, or edema. Peripheral pulses palpable. No calf tenderness. Neurological: Patient is awake and alert to person, place and time. Following simple commands, moving all extremities. Weight Dosing Weight: 78.2 kg (02/09/23) Dosing Weight: 78.2 kg (02/09/23) Medications Medications (17) Active Scheduled: (8) citalopram 20 mg Tablet 20 mg 1 tab(s), Oral, qDay docusate sodium 100 mg Capsule 100 mg 1 cap(s), Oral, BID docusate-senna (Senokot S) 50 mg-8.6 mg Tablet 2 tab(s), Oral, BID famotidine 20 mg tablet 20 mg 1 tab(s), Oral, qDay gabapentin 100 mg Capsule 200 mg 2 cap(s), Oral, TID heparin + NS (0.9% nacl) 1,000 mL 30,000 unit(s) 6 mL, Miscellaneous, PREOP pharm levothyroxine 75 mcg tablet 75 mcg 1 tab(s), Oral, qDay magnesium hydroxide 8% Suspension 30 mL UD 30 mL, Oral, Daily Continuous: (1) Lactated Ringers 1,000 mL 1,000 mL, Intravenous, 100 mL/hr PRN: (8) acetaminophen 325 mg Tablet 650 mg 2 tab(s), Oral, q4h acetaminophen-HYDROcodone 325-5 mg tablet 1 tab(s), Oral, q4h diphenhydramine 25 mg tablet 25 mg 1 tab(s), Oral, q6h diphenhyDRAMINE 50 mg/mL (1 mL) INJ 25 mg 0.5 mL, IV Push, q6h morphine 4 mg/mL 1mL INJ 4 mg 1 mL, IV Push, q4h ondansetron 2 mg/ 1 mL 2 mL INJ 4 mg 2 mL, IV Push, q8h scopolamine 1.5 mg (1 mg / 72 hours patch) 1 patch(es), Transdermal, q72h sodium biphosphate-sodium phosphate 19 gm-7 gm Enema 133 mL, Rectal, qDay Lab Results 02/10 05:22 WBC: 9.3 Hgb: 11.8 L Hct: 35.9 L Platelet: 191 Neutrophil %: 79.4 Glucose Level: 104 Sodium Level: 143 Potassium Level: 4.1 BUN: 13 Creatinine Lvl (s): 0.79 EKG No qualifying data available. Assessment/Plan 1. Cervical spondylosis Chronic, s/p anterior cervical discectomy. POD #1. Management per primary team. Continue PO pain medication and antiemetics. 2. Hypothyroid Chronic. Continue Levothyroxine at current dose. 3. Anxiety Chronic, controlled. Continue citalopram at current dose. Patient seen and evaluated this morning while resting in bed. Physical exam was unremarkable. Lab results and vital signs trends reviewed and were stable. From hospitalist perspective, patient is medically optimized for discharge home today. Hospitalist service will sign-off at this time. Please feel free to re- consult service if there are any changes in condition. Thank you for including hospitalist service in the care of your patient! DVT prophylaxis with SCDs. Code status: Full Code. Labs, diagnostic test and progress notes reviewed as noted in HPI. Plan of care discussed with patient. All questions answered. Patient verbalizes understanding and is agreeable with plan of care. This case was discussed with collaborating physician, Dr. Rochelle Francois. Time Spent 35 minutes spent reviewing past diagnostic tests, reviewing lab results, vital sign trends, medicalhistory, reviewing medications and ordering home medications, examining patient, discussed plan of care with nursing, adoption social worker and therapy, collaborating with physician, and documenting in chart. Digitally Signed by SELWYN FENTON on 02/10/2023 11:42 AM [facility]12-27-2023 Note ORIGINAL Images acquired, not reported on this accession number.[facility]12-27-2023 Anesthesiology Consult note Patient: JOSHUA NOGUEIRA Age: 67 years Sex: Female : 1955 Associated Diagnoses: None Author: TERRANCE MASON Preoperative Information Anesthesia history Patient's history: negative. Family's history: negative. Health Status Allergies: Allergic Reactions (Selected) Severity Not Documented Latex- Rash., Allergies (1) ActiveReaction LatexRASH Current medications: (Selected) Inpatient Medications Ordered Heparin for IV + Sodium Chloride 0.9% intravenous solution 1,000 mL: 30,000 unit(s), 6 mL, 0 mL/hr,Miscellaneous, PREOP pharm NS 1,000 mL: 50 mL/hr, Intravenous ceFAZolin: 2 gram(s), 200 mL/hr, IV Piggyback, PREOP pharm Documented Medications Documented citalopram 20 mg oral tablet: 20 mg, 1 tab(s), Oral, qDay, 30 tab(s), 0 Refill(s) gabapentin 100 mg oral capsule: 200 mg, 2 cap(s), Oral, TID, 180 cap(s), 0 Refill(s) levothyroxine 75 mcg (0.075 mg) oral tablet: 75 mcg, 1 tab(s), Oral, qDay, 30 tab(s), 0 Refill(s), Medications (3) Active Scheduled: (2) ceFAZolin 2 gram(s), IV Piggyback, PREOP pharm heparin + NS (0.9% nacl) 1,000 mL 30,000 unit(s) 6 mL, Miscellaneous, PREOP pharm Continuous: (1) NS (0.9% nacl) 1,000 mL 1,000 mL, Intravenous, 50 mL/hr PRN: (0) Problem list: Active Problems (2) Arthritis Hypothyroidism Histories Past Medical History: No active or resolved past medical history items have been selected or recorded. Family History: No family history items have been selected or recorded. Procedure history: Appendectomy ([id number]). Cholecystectomy ([id number]). Ovarian tumor ([id number]). Comments: 01/18/2023 10:03 EST - Pricila Loera RN RIGHT Hysterectomy ([id number]). Tonsillectomy and adenoidectomy ([id number]). Social History Social & Psychosocial Habits Alcohol 01/18/2023 Use: Current Frequency: 1-2 times per month Substance Abuse 01/18/2023 Use: Never Tobacco 01/18/2023 Tobacco Use: Never (less than 100 in l . Physical Examination Vital Signs 02/09/2023 6:18 EST Temperature Temporal Artery 36.6 DegC Peripheral Pulse Rate 71 bpm Respiratory Rate 18 br/min Systolic Blood Pressure Non-Invasive 146 mmHg HI Diastolic Blood Pressure Non-Invasive 86 mmHg Vital Signs(last 24 hrs) Last Charted Resp Rate 18 br/min (FEB 09 06:18) SBPH 146mmHg (FEB 09 06:18) DBP86 mmHg (FEB 09 06:18) BMI27 (FEB 09 06:23) Measurements from flowsheet : Measurements 02/09/2023 6:23 EST Body Mass Index 27 kg/m2 02/09/2023 6:20 EST Height 170.2 cm Admission Weight 78.2 kg [place] Body Weight 61.62 kg Admission Body Mass Index 27 m2 Pain assessment: Pain Assessment 02/09/2023 6:18 EST Primary Pain Location Neck Primary Pain Intensity 2 Pain Scale Type 0-10 Pain scale . General: Alert and oriented, Mild distress. Airway: Normal temporomandibular joint mobility. Mallampati classification: II (soft palate, fauces, uvula visible). Dentition Evaluation: Denies loose/chipped teeth. Respiratory: Lungs are clear to auscultation, Respirations are non-labored. Cardiovascular: Normal rate, Regular rhythm. Musculoskeletal rue weakness and numbness. Neurologic: Alert, Oriented. Review / Management Results review: No qualifying data available , Lab results 02/09/2023 6:39 EST SN - Preop - CTm Pt in SDS Room 02/09/2023 6:06 SN - Preop - CTm Pt Ready for OR/Proced 02/09/2023 6:39 02/09/2023 6:39 EST Sodium Chloride 0.9% Begin Bag 1,000 mL mL 02/09/2023 6:38 EST Hand Left 02/09/2023 20 gauge Peripheral IV Activity: Insert new site Peripheral IV Dressing Condition: Clean, Dry, Intact Peripheral IV Dressing Activity: Applied Peripheral IV Line Status/Patency: Flushes easily Peripheral IV Site Condition: No complications Peripheral IV Equipment: Extension set Peripheral IV Number of Attempts: 1 02/09/2023 6:37 EST Preop Nasal Swab Povidone-Iodine CHG Skin Prep Completed for Eligible Surgery 02/09/2023 6:23 EST Designated Person #1 We May Share DORIE NOGUEIRA [phone] Designated Person #1 Relationship Daughter Privacy Restrictions Requested None Body Mass Index 27 kg/m2 Status No, per patient Sensory Deficits Hearing deficit, left ear, Hearing deficit, right ear Sleep Apnea Snore No Sleep Apnea Tired Yes Sleep Apnea Obstruction No Sleep Apnea Pressure No Sleep Apnea BMI No Sleep Apnea Age Yes Sleep Apnea Neck No Sleep Apnea Gender No Sleep Apnea Score 2 Diagnosed With Sleep Apnea No Advanced Directives Yes Advance Directive Type [place] D[place] Declaration (Living Will) Advance Directive Location Copy placed on paper chart Infectious Disease Symptoms Patient states no symptoms Infectious Disease Recent Exposure No Alcohol and Drug Use No Employee of Institutional Living No Health Care Employee No History of Exposure to TB No History of Positive Chest X-Ray for TB No History of Positive TB Skin Test No Homeless No Known Immunosuppression No Recent Immigrant No Resident of Institutional Living No Bloody Sputum No Fatigue No Fever No Loss of Appetite No Night Sweats No Persistent Cough > 3 Weeks No Weight Loss No Patient Aware Date/Time Of Surgery Yes Previous Surgery At This Facility No Pre-Op Patient Education NPO after midnight, No makeup, No jewelry, Responsible Democrat, Aware of surgery location, Pre-op education done, 1 bottle CHG wash with instructions given, Instructed to take ordered medications, SSI prevention handout given SN - Preprocedure Comments Spoke with patient, Verbalizes/Nonverbally indicates understanding, Other: levothyroxine Barriers to Learning None evident Teaching Method Explanation Preferred Spoken Language Sammarinese Preferred Written Language Sammarinese Teaching Evaluation No further teaching needed Safety Brochure Information Reviewed Unable to complete Bety Kenney Video Viewed No Information Given by Patient Patient's Current Physicians DR AGNES CRUM - PCP Discharge To, Anticipated Home independently Prev Test Positive/Diagnosis w/COVID-19 Yes Previous COVID-19 Positive Date 2021 Current Quarantine/Isolated any Illness No Any Contact with Sick Animals/Birds No Traveled Anywhere in Last 30 Days No Lost Weight Unintentionally Recently No Eat Poorly Due to Decreased Appetite No Total MST Score 0 No Personal Devices, Patient Valuables Glasses, Hearing aid, left, Hearing aid, right Anesthesia/Transfusions Prior anesthesia Admission Note-Nursing Same Day Patient History 02/09/2023 6:20 EST Height 170.2 cm Admission Weight 78.2 kg [place] Body Weight 61.62 kg Admission Body Mass Index 27 m2 Respirations Unlabored Respiratory Pattern Regular All Lobes Breath Sounds Clear Abdomen Description Non-distended, Symmetric Abdomen Palpation Non-Tender Bowel Sounds All Quadrants Present Urinary Elimination Voiding, no difficulties Skin Temperature Warm Skin Description Normal for ethnicity Skin Integrity Intact Characteristics of Speech Clear Level of Consciousness Alert Strength All Extremities Strong Tone All Extremities Normal Left Upper Extremity Sensation Intact Right Upper Extremity Sensation Numbness, Tingling Left Lower Extremity Sensation Intact Right Lower Extremity Sensation Intact Affect/Behavior Appropriate, Calm, Cooperative Orientation Oriented x 4 Activity Status ADL Awake, Resting Standard Safety ID band on, Allergy Band on, Call device within reach, Bed in low position, Wheels locked, Upper/Half-Length side-rails up, Phone within reach, personal items within reach, Visitor atbedside, Safety level maintained 02/09/2023 6:18 EST Temperature Temporal Artery 36.6 DegC Peripheral Pulse Rate 71 bpm Respiratory Rate 18 br/min Systolic Blood Pressure Non-Invasive 146 mmHg HI Diastolic Blood Pressure Non-Invasive 86 mmHg Primary Pain Location Neck Primary Pain Intensity 2 Pain Scale Type 0-10 Pain scale Heart Rhythm Regular Oxygen Saturation 94 % 02/09/2023 6:16 EST Allergies Yes Consent Form Signed Yes Patient Dressed In Hospital gown CHG Preoperative Wash/Wipe Night before procedure, Day of procedure History & Physical On Chart Yes Belongings At Bedside Glasses, Other: PATIENT BAG NPO Status Maintained Allergy Band on and Verified Yes Patient ID Band on and Verified Yes Implants Verified Yes Pacemaker/AICD Verified Yes Site Verified by Patient/Family Yes Blood Consent Signed Yes Last Fluid Intake 02/09/2023 4:30 Last Food Intake 02/08/2023 18:30 Last Void 02/09/2023 5:30 . Assessment and Plan [place] [employer] Anesthesiologists (ASA) physical status classification: Class III. Anesthetic Preoperative Plan Anesthetic technique: General. Maintenance airway: Oral endotracheal tube. Postoperative pain management: Per surgeon. Risks discussed: nausea, vomiting, sore throat, dental injury, hypotension, allergic reaction, serious complications. Informed consent: signed by patient. Digitally Signed by TERRANCE MASON on 02/09/2023 06:51 AM [facility]12-05-2023 Note ORIGINAL EXAMINATION: TWO XRAY VIEWS OF THE CHEST 01/18/2023 11:29 am COMPARISON: None. HISTORY: ORDERING SYSTEM PROVIDED HISTORY: Reason for Exam: Pre-admission testing FINDINGS: The cardiomediastinal contours are within normal limits. The lungs are clear bilaterally. There is no evidence of focal consolidation, pulmonary edema, pleural effusion or pneumothorax. There is no blunting of the costophrenic angles on the lateral view. IMPRESSION: No acute cardiopulmonary process. Interpreted by: Varun Grossman MD Preliminary Report By: Varun Grossman MD Electronically signed By Varun Grossman MD Dictated Date: 01/18/2023 11:53:47 AM Prelim Date: 01/18/2023 11:53:58 AM Sign Date: 01/18/2023 11:53:58 AM [facility] Future [facility] Evaluation noteNo assessment information available [facility] Work Phone: Evaluation note* Diagnosis Onset Date Resolution Status Cervical strain, acute acute Right shoulder pain acute Bronchitis acute [facility] Work Phone: Evaluation note* Diagnosis Onset Date Resolution Status Bronchitis acute [facility] Work Phone: Hospital course Narrative No data available for this section [facility] Hospital Discharge instructions Additional Instructions Please keep your appointments as scheduled.[facility] Work Phone: Hospital Discharge instructions No data available for this section [facility] Progress note No data available for this section [facility] Reason for referral (narrative)No reason for referral [facility]: Chief Complaint and Reason for Visit Chief Complaint PRE-SURGICAL PRE-SURGICAL RT RING FINGER POST OP/ DR TO FAX RX Chief Complaint DISP FX OF MIDDLE PH ALANZ RT LITTLE FINGER. RX HER Chief Complaint RIGHT SHOULDER PAIN CERVIAL RAD W/ UPPER BACK RX HERE COUGH, HEADACHE NECK PAIN Reason for Visit Cervical strain, acu te Right shoulder pain Bronchitis Chief Complaint COUGH, HEADACHE NECK PAIN SPINAL STENOSIS RX HERE Reason for Visit Bronchitis Chief Complaint Admit Date L EAR PAIN September 05, 2024 4:32 pm Chief Complaint Admit Date L EAR PAIN September 05, 2024 4:32 pm SCREENING October 10, 2024 10 :15am Chief Complaint Admit Date L EAR PAIN September 05, 2024 4:32 pm SCREENING October 10, 2024 10 :15am UPDATE BMD October 30, 2024 10:48am Family History No Family History Records Found Relationship Condition Age at Onset Recorded Date/T corrina Not Specified Cardiac disease Unknown Malignant neoplasm Unknown Advance Directives No Advanced Directives Records Found Advance Directive Response Recorded Date/ Time Advance Directives No June 29 6 9:22am Living Will No October 21 019 9:56am Power of Tin Assorter No October 21, 2018 9:56am Advance Directive Response Recorded Date/ Time Advance Directives No June 29 6 8:22am Living Will No October 21, 2 019 8:56am Power of Tin Assorter No October 21, 2018 8:56am Advance Directive Response Recorded Date/ Time Advance Directives No June 29 6 8:22am Living Will No January 12, 2 023 1:11pm Power of Tin Assorter No January 12, 2023 1:11pm Advance Directive Response Recorded Date/ Time Advance Directives No June 29 6 9:22am Living Will No January 12, 2 023 2:11pm Power of Tin Assorter No January 12, 2023 2:11pm Advance Directive Response Recorded Date/ Time Advance Directives No September 05 4:21pm Summary Purpose Additional Source Comments Goals (unrecognized section and content) Goals may be documented in a n alternate sectionGoals may be documented in an alternate sectionGoals may be documented in an alternate sectionGoals may be documented in an alternate sectionGoals may be documented in an alternate sectionGoals may be documented in an alternate sectionGoals may be documented in an alternate section No data available for this section No data available for this sectionGoals may be documented in an alternate sectionGoals may be documented in an alternate sectionGoals may be documented in an alternate sectionGoals may be documented in an alternate sectionGoals may be documented in an alternate sectionGoals may be documented in an alternate section Care Teams (unrecognized sec tion and content) Team Status: Active Member Role Status Dates Dr. Agnes Crum , DO Family Provider Active Dr. Agnes Crum DO Primary Care Provider Active Team Status: Inactive Member Role Status Dates Dr. Agnes Crum DO Primary Care Provider, Attendin g Provider Active Team Status: Inactive Member Role Status Dates Dr. Agnes Crum DO Primary Care Provider, Referrin g Provider Active Migel Coronado PA, PA Attending Provider Active Team Status: Inactive Member Role Status Dates Dr. Agnes Crum , DO Primary Care Provider Active Dr. Geoffrey Mcmahon DC Attending Provider, Referring P gutierrez Active Team Status: Active Member Role Status Dates Dr. Agnes Crum DO Primary Care Prov ider, Attending Provider, Referring Provider Active Team Status: Inactive Member Role Status Dates Dr. Agnes Crum DO Primary Care Provider Active Dr. Evgeny Contreras , DO Emergency Provider Active Team Status: Active Member Role Status Dates Dr. Agnes Crum DO Primary Care Provider Active Dr. Kendrick Mitchell DO Attending Provider, Referring P rovider Active Team Status: Inactive Member Role Status Dates Dr. Agnes Crum DO Primary Care Provider Active Dr. Evgeny Contreras DO Attending Provider, Emergency Provide r Active Team Status: Inactive Member Role Status Dates Dr. Agnes Crum DO Primary Care Provider Active Dr. Kendrick Mitchell DO Attending Provider, Referring P rovider Active Team Status: Active Member Role/Relationship Status Dates Dr. Agnes Crum DO Family Provider Active Dr. Agnes Crum DO Primary Care Provider Active Team Status: Inactive Member Role/Relationship Status Dates Dr. Agnes Crum DO Primary Care Provider Active Start: September 05, 2024 End: September 05, 2024 Dr. Agnes Crum DO Referring Provider Active Start: September 05, 2024 End: September 05, 2024 Lamont AHYNES PA Attending Provider Active Start: September 05, 2024 End: September 05, 2024 Team Status: Active Member Role/Relationship Status Dates Dr. Agnes Crum DO Primary Care Provider Active Team Status: Inactive Member Role/Relationship Status Dates Dr. Agnes Crum DO Primary Care Provider Active Start: October 10, 2024 End: October 10, 2024 Dr. Agnes Crum DO Attending Provider Active Start: October 10, 2024 End: October 10, 2024 Dr. Agnes Crum DO Referring Provider Active Start: October 10, 2024 End: October 10, 2024 Team Status: Active Member Role/Relationship Status Dates Dr. Agnes Crum DO Primary care physician Active Team Status: Inactive Member Role/Relationship Status Dates Dr. Agnes Crum DO Primary care physician Active Start: September 05, 2024 End: September 05, 2024 Dr. Agnes Crum DO Referring Provider Active Start: September 05, 2024 End: September 05, 2024 Lamont HAYNES PA Attending physician Active Start: September 05, 2024 End: September 05, 2024 Team Status: Inactive Member Role/Relationship Status Dates Dr. Agnes Crum DO Primary care physician Active Start: October 10, 2024 End: October 10, 2024 Dr. Agnes Crum DO Attending physician Active Start: October 10, 2024 End: October 10, 2024 Dr. Agnes Crum DO Referring Provider Active Start: October 10, 2024 End: October 10, 2024 Team Status: Inactive Member Role/Relationship Status Dates Dr. Agnes Crum DO Primary care physician Active Start: October 25, 2024 End: October 25, 2024 Dr. Agnes Crum DO Attending physician Active Start: October 25, 2024 End: October 25, 2024 Team Status: Inactive Member Role/Relationship Status Dates Dr. Agnes Crum DO Primary care physician Active Start: October 30, 2024 End: October 30, 2024 Dr. Agnes Crum DO Attending physician Active Start: October 30, 2024 End: October 30, 2024 Dr. Agnes Crum DO Referring Provider Active Start: October 30, 2024 End: October 30, 2024 INFORMATION SOURCE (unrecogn ized section and content) DATE CREATED AUTHOR 07/07/2023 [facility] ([place]) DATE CREATED AUTHOR AUTHOR'S ORGANIZ ATION 12/19/2024 [facility] FOR RECORDS PERTAINING TO PATIENTS WHO ARE OR HAVE BEEN ENROLLED IN A CHEMICAL DEPENDENCY/SUBSTANCEABUSE PROGRAM, SOME INFORMATION MAY BE OMITTED. This clinical summary was aggregated from multiple sources. Caution should be exercised in using it in the provision of clinical care. This summary normalizes information from multiple sources, and as a consequence, information in this document may materially change the coding, format and clinical context of patient data. In addition, data may be omitted in some cases. CLINICAL DECISIONS SHOULD BE BASED ON THE PRIMARY CLINICAL RECORDS. AT [facility]. provides no warranty or guarantee of the accuracy or completeness of information in this document.
== END 2024-12-25 12:17 | disposition home or self-care (01) ==
PROVIDERS: Emergency Provider Emergency Medicine; PCP Family Medicine; Visit Provider Emergency Medicine
DX: S42.211A Unspecified displaced fracture of surgical neck of right humerus, initial encounter for closed fracture (principal); E03.9 Hypothyroidism, unspecified; Z87.891 Personal history of nicotine dependence; W18.39XA Other fall on same level, initial encounter; Z79.890 Hormone replacement therapy; Z90.49 Acquired absence of other specified parts of digestive tract; Z90.710 Acquired absence of both cervix and uterus
CPT/HCPCS: 71045; 72170; 73030; 73060; 96374; 96375; 96376; 99285; A4216

== ENCOUNTER 2025-01-12 09:23 | Emergency (ER) | payer MEDICARE, OTHER, SELFPAY ==
[2025-01-12 09:24] VITALS: BP 154/83; PULSE 62; RESP 16; TEMP 36.6; O2SAT 98; BMI 24.8
--- NOTE | 2025-01-12 09:43 | ED.VIS.LOWEX ---
HPI History of Present Illness Chief Complaint: Lower Extremity Injury Narrative Narrative: Patient is a 69-year-old female presenting to the emergency department for an episode of right great toe pain that has since resolved. Patient has a past medical history of vertigo, gastritis, bronchitis, hypothyroidism. She recently had right arm surgery on Tuesday. States that her daughter cut her toenails and she thinks she cut them too short and last night during the night she had an episode of right great toe pain. Patient and daughter were concerned about a blood clot in her toe from her surgery. Patient denies any trauma to her toe. States it was red at the very tip this morning but is no longer showing any redness. Denies any swelling of the toe. Denies any pain, swelling or redness to the calf. Denies any history of DVT or PE. Denies any chest pain or shortness of breath. Denies any history of gout. Denies any fever, chills, feeling unwell. PFSH [facility] Medical History Allergic reaction Hypothyroidism Fatigue Home Medications ?Medication ?Instructions ?Recorded ?Last Taken ?Type citalopram 10 mg tablet 10 mg PO DAILY 10/24/17 Unknown History levothyroxine 75 mcg tablet 75 mcg PO DAILY #30 tabs 11/29/18 Unknown History diazepam 5 mg tablet (Valium) 5 mg PO TID PRN muscle spasm 7 12/25/24 Unknown Rx days #21 tabs hydrocodone-acetaminophen 5-325mg 1 tab PO Q6H PRN pain 7 days #28 12/25/24 Unknown Rx 5mg-325mg tabs Allergy/AdvReac Type Severity Reaction Status Date / Time latex Allergy Unknown Verified 01/12/25 09:28 oxycodone AdvReac Nausea/Vom/ Verified 01/12/25 09:28 Diarrhea Family History Other Cancer Heart disease Surgical History Tumor of ovary Hx of cholecystectomy History of hysterectomy History of tonsillectomy and adenoidectomy History of appendectomy Social History Smoking Status: Former smoker alcohol intake: current ROS ROS ED ROS Narrative see HPI EXAM Physical Exam Narrative Exam Narrative: Vital signs: Reviewed General: Alert and oriented x 3. No acute distress. Well-appearing, nontoxic. HEENT: Head is normocephalic and atraumatic, sinuses nontender, pupils equal round and reactive. Nares are patent. Oropharynx and throat exams normal. Neck: Supple without lymphadenopathy nontender Cardiovascular: Regular rate and rhythm, no murmurs. No rubs or gallops. Normal S1 and S2 Respiratory: Clear to auscultation bilaterally. No wheezes, rales, rhonchi Abdominal: Soft and nontender. Normal bowel sounds. No guarding or rebound. Nonsurgical abdomen Extremities: The right great toe is unremarkable on physical exam. There is no erythema, swelling, wounds, fluctuance or drainage. There is no tenderness to palpation of the toe, foot or ankle. The right calf is nonswollen. There is no palpable cords. No tenderness to palpation of the calf. No bruising. Normal range of motion. Normal sensation. DP and PT pulses intact. Normal toe nail, no paronychia or felon. Skin: No rash or redness. Neurological: Cranial nerves II through XII are grossly intact. Normal strength and sensation. Normal cerebellar function The rest of the physical exam is unremarkable Const Vital Signs: 01/12/25 09:24 Temperature 97.9 F Temperature Source Oral Pulse Rate 62 Respiratory Rate 16 Blood Pressure 154/83 H Blood Pressure Mean 106 Pulse Ox 98 Oxygen Delivery Method Room Air MDM MDM MDM Narrative Medical decision making narrative: Patient is a 69-year-old female presenting to the emergency department for an episode of right great toe pain that is now resolved. Patient was seen and examined. Vitals are stable. Patient resting in bed comfortably no acute distress. Patient's physical exam of the right lower extremity is unremarkable. There is no concerning findings of DVT of the calf. He has no chest pain or shortness of breath. She has no swelling, erythema or warmth of the right great toe to consider gout or septic arthritis. She has no evidence of paronychia or felon. She has no wounds. Pulses intact. She had no trauma or injury to the toe that would warrant an x-ray. I recommended that the patient and daughter watch for any signs of infection which would include redness or swelling and to return immediately if these develop. Instructed to watch for any pain or swelling of the calf which would prompt return as well. All questions answered. Patient discharged from the Emergency Department. I do not feel that the patient's evaluation reveals any acute reason for admission at this time. I instructed them to either follow-up with their primary care physician or promptly return to the Emergency Department for reevaluation should symptoms worsen or new symptoms develop. I explained what symptoms would indicate the need to return to the emergency department. Shared decision making was used. The patient voiced understanding of the treatment plan and is agreeable with it. Clinical impression Great toe pain History & Record Review Discussion w/independent historian: Patient and Family Discharge Plan Triage Chief Complaint: Lower Extremity Injury ED Provider: Anabella Torres Dx/Rx/DC Orders Clinical Impression: Great toe pain Prescriptions: No Action citalopram 10 mg tablet 10 mg PO DAILY levothyroxine 75 mcg tablet 75 mcg PO DAILY Qty: 30 Patient Comments: TAKE 1 TABLET BY MOUTH ONCE DAILY IN THE MORNING ON AN EMPTY STOMACH diazepam [Valium] 5 mg tablet 5 mg PO TID PRN (Reason: muscle spasm) 7 Days Qty: 21 0RF hydrocodone-acetaminophen 5-325 mg tablet 1 tab PO Q6H PRN (Reason: pain) 7 Days Qty: 28 0RF Primary Care Provider: Rigo Crum Referrals: Rigo Crum DO [Primary Care Provider, Family [facility]] - As soon as possible Activity Restrictions/Additional Instructions: If you develop redness of your toe, swelling, pain in your calf you should return to the emergency department immediately. Your evaluation in the Emergency Department did not reveal any acute reason for admission. However, I want to emphasize that you may be early in the course of a disease process or illness even if it is not present. For this reason you should follow-up within 24 hours for reevaluation with either your primary care physician or if necessary back here in the Emergency Department. You should return to the Emergency Department immediately if your symptoms worsen or new symptoms develop. Print Language: Bahamian Disposition Disposition: Home, Self Care
[2025-01-12 09:56] VITALS: BP 154/83; PULSE 62; RESP 16; TEMP 36.6; O2SAT 98
--- OUTSIDE RECORDS SUMMARY | 2025-01-12 09:57 | XMS RPT_ITS | CCD ---
Author Organization [facility] Care Team Providers Care Medical Chief Technician Name Role Phone Dr. Agnes Crum Primary Care Provider [phone] Dr. Matt Layton Attending Provider Dr. Hesham Parker Referring Provider [phone] Agnes Crum Primary Care Provider [phone] Dr. Agnes Crum Referring Provider [phone] [place] Padilla Attending Provider DR AGNES CRUM DO A Primary Care Physician Dr. Agnes Crum Primary Care Provider [phone] Dr. Agnes Crum Referring Provider [phone] [place] Padilla Attending Provider [phone] DR AGNES CRUM DO Primary Care Unavailab OC Anderson DO Attending Unavailable DR AGNES CRUM DO Primary Care Unavailab OC Anderson DO Attending Unavailable SHARI CERRATO Attending DR AGNES Kat DO Primary Care Unavailab OC Anderson DO Admitting OC Levine DO Referring Unavailable SHARI CERRATO Consulting Dr. Agnes Kat DO Primary Care Provider Dr. Agnes Crum DO Referring Provider [phone] Lamont Barth Attending Provider Dr. Agnes Crum DO Attending Provider Dr. Agnes Crum DO Primary Care Physician [phone] Lamont Barth Attending Phys[address] Dr[address] Agnes Crum DO Attending Physician Judd Brown Attending Unavailable Radames, Agnes Primary Care Unavailable Radames, Agnes Referring Unavailable Radames, Agnes Primary Care Unavailable Agnes Crum Attending Unavailable Lamont Barth Attending Unavailable Radames, Agnes Referring Unavailable Radames, Agnes Primary Care Unavailable Migel Padilla Attending Unavailable Radames, Agnes Referring Unavailable Radames, Agnes Primary Care Unavailable Titi Patel Attending Unavailable Radames, Agnes Referring Unavailable Radames, Agnes Primary Care Unavailable Radames, Agnes Referring Unavailable Radames, Agnes Primary Care Unavailable Radames, Agnes Attending Unavailable Radames, Agnes Attending Unavailable Radames, Agnes Referring Unavailable Radames, Agnes Primary Care Unavailable RadamesAgnes lopez Attending Unavailable Radames, Agnes Primary Care Unavailable Allergies Allergy Classification Reported Allergen(s) Allergy Type Date of Onset Reaction(s) Facility (15 sources) Latex Allergy to substance 0 Unknown, RASH [facility] (13 sources) oxyCODONE Drug Allergy 0 Nausea/Vom/Diar pushpa [facility] (1 source) Latex Drug allergy (disorder) 5 [facility] (1 source) oxyCODONE Drug Allergy 5 [facility] Medications Current Medications Medication Drug Class(es) Dates Sig (Normalized) Sig (Original) acetaminophen 325 mg / HYDROcodone bitartrate 5 mg oral tablet (1 source) Opioid Agonist Start: 02-09-2023 End: 02-16-2023 take 1 tablet by mouth every six hours as needed for pain [place] 325- 5 mg oral tablet Dose = 1 tab(s), Oral, q6h, PRN for pain, X 7 day(s), # 28 tab(s), 0 Refill(s), Pharmacy: [id number], Cervical spondylosis, 170.2, cm, 02/09/23 6:23:00 EST, Height, 78.2, kg, 02/09/23 6:23:00 EST, Dosing Weight Start Date: 02/09/23 Stop Date: 02/16/23 Status: Ordered amoxicillin 875 mg oral tablet (7 sources) Penicillin-class Antibacterial Start: 09-05-2024 take 1 tablet by mouth twice daily Start: 12-26-2023 End: 02-13-2024 take 1 tablet by mouth three times daily Amoxicillin 500 mg tablet Discontinued 500 mg PO THREE TIMES A DAY 30 0 December 26, 2023 1:00am February 13, 2024 [...] MG tablet Discontinued 875 mg PO Q12H October 21, 2018 12:00am November 29, 2018 [...] A DAY as needed for cough 30 0 December 30, 2022 1:00am December 26, 2023 [...] DAILY NEEDED as needed for Itching 30 0 October 21, 2018 12:00am April 11, 2022 10:28am Start: 10-21-2018 End: 04-11-2022 take 50 mg by mouth three times daily as needed Hydroxyzine Pamoate Discontinued 50 MG PO 3 TIMES DAILY NEEDED October 21, 2018 12:00am April 11, 2022 10:28am methylPREDNISolone 4 mg oral tablet (20 sources) Corticosteroid Start: 10-15-2022 End: 09-07-2023 take 1 tablet by mouth once Methylprednisolone [...] 1:00am December 26, 2023 11:01am polymyxin b [id number] unt/ml / trimethoprim 1 mg/ml ophthalmic solution [...] oral tablet (19 sources) Start: 01-12-2023 End: 12-26-2023 take 1 tablet by mouth once daily [...] Vertigo; Translations: [Dizziness and giddiness] 04-29-2017 Episodic Fracture of upper limb (1 source) Unspecified fracture of upper end of unspecified humerus, initial encounter for closed fracture; Translations: [Unspecified fracture of upper end of unspecified humerus, initial encounter for closed fracture] Onset: 12-25-2024 Episodic Gastritis and duodenitis (13 sources) Gastritis; Translations: [Gastritis, unspecified, without bleeding] 10-24-2017 Episodic Inflammation; infection of eye (except that caused by tuberculosis or sexually transmitteddisease) (14 sources) Acute infectious conjunctivitis; Translations: [Unspecified acute conjunctivitis, unspecified eye] 07-05-2022 Episodic Other connective tissue disease (1 source) Other muscle spasm; Translations: [Other muscle spasm] Onset: 12-25-2024 Episodic Other ear and sense organ disorders [...] Test Name Value Interpretation Reference Range Facility Chest 1 View (Portable)on Chest 1 View (Portable) [facility] [address] [place] [address] Chest 1 View (Portable) MR#: [id number] Acct: [id number] Name: JOSHUA NOGUEIRA Rep #: [id number] : 1955 F 69 From: Darnell kumar MD PCP: Dr. Agnes Crum, DO Status: REG ER Study: Chest 1 View (Portable) Date of Exam: 12/25/24 Exam# [id number] Ordering Dr: Judd Brown DO PROCEDURE: CHEST 1 VIEW (PORTABLE) 12/25/2024 REASON FOR EXAM: PAIN TECHNIQUE: Frontal view of the chest. COMPARISON: None. FINDINGS: Unremarkable cervical fusion metallic hardware. The lungs are expanded. There is no demonstrated parenchymal abnormality. There is no demonstrated pleural abnormality. Enlarged cardiac silhouette. Normal mediastinum and giulia. Normal visualized pulmonary arteries. Atheromatous plaques of the visualized aortic arch and descending thoracic aorta. Diffuse spondylosis of the visualized thoracic spine. Normal visualized ribs, clavicles. Degenerative joint disease. There is no demonstrated abnormality of the visualized soft tissue structures of the upper abdomen. RAD/Chest 1 View (Portable) IMPRESSION: No evidence for acute abnormality. Reading Location: [place] [address] CC: Dr. Agnes Crum DO; Judd Brown DO Materials Analyst: Signed Normal [facility] Emergency Department Summary on 12-25-2024 Emergency Department Summary [facility] Medical Records Department [address] [place] [address] Emergency Department Summary 12/25/24 MR#: [id number] Acct: [id number] Name: JOSHUA NOGUEIRA Rep #: [id number] : 1955 69 From: Judd Brown DO PCP: Dr. Agnes Crum DO Status:REG ER Location: ED HPI History of Present Illness Chief Complaint: Upper Extremity Injury Informant: patient and EMS Narrative Narrative: Patient is a 69-year-old female who lives at home. She has a past medical history of hypothyroidism. She states she got up to use the bathroom and her feet simply went out from under her. She states she fell landing on the floor which is carpet on top of hardwood and landed on her right side with her right arm being pushed into her chest. She denies striking her head or any loss of consciousness history of bleeding disorder or blood thinner use. She denies any loss of consciousness associated with the fall. She states she was only on the ground for a few minutes before she was able to contact EMS. She denies any other injury than the right arm. She states she has pain from the shoulder down to the elbow. She has concern for fracture and with this comes in for evaluation Patient reports she is left-hand dominant [facility] Medical History Allergic reaction Hypothyroidism Fatigue Home Medications ???Medication ???Instructions ???Recorded ???Last Taken ???Type citalopram 10 mg tablet 10 mg PO DAILY 10/24/17 Unknown Hi story levothyroxine 75 mcg tablet 75 mcg PO DAILY #30 tabs 11/29/18 Unknown History diazepam 5 mg tablet (Valium) 5 mg PO TID PRN muscle spasm 7 01/08 Unknown Rx days #21 tabs hydrocodone-acetamin ophen 5-325mg 1 tab PO Q6H PRN pain 7 days #28 12/25/24 Unknown Rx 5mg-325mg tabs Allergy/AdvReac Type Severity Reaction Status Date / Time latex Allergy Unknown Verified 12/25/24 04:10 oxycodone AdvReac Nausea/Vom/ Verified 12/25/24 04:10 Diarrhea Family History Other Cancer Heart disease Surgical History Tumor of ovary Hx of cholecystectomy History of hysterectomy History of tonsillectomy and adenoidectomy History of appendectomy Social History Smoking Status: Former smoker alcohol intake: current ROS ROS ED Constitutional Constitutional ED: Denies chills or fever(s) Eyes Eyes: Denies blurry vision or change in vision ENT ENT ED: Denies sore throat Cardiovascular Cardiovascular: Reports other Details: Negative syncope ; Denies chest pain, palpitations or racing heartbeat Respiratory/Chest Respiratory/Chest: Denies cough or dyspnea Gastrointestinal Gastrointestinal: Denies abdominal pain, diarrhea, nausea or vomiting Musculoskeletal Musculoskeletal: Reports other Details: Positive right shoulder/arm pain as well as positive right chest wall/rib pain ; Denies back pain or neck pain Integumentary Denies Abrasions or rash Neurologic Neurologic: Denies headache(s) or paresthesias Hematologic/Lymphati c Hematologic/Lymphati c: Denies easy bleeding or easy bruising EXAM Physical Exam Const Vital Signs: 12/25/24 04:10 12/25/24 04:20 Temperature 97.5 F L Temperature Source Oral Pulse Rate 71 Respiratory Rate 16 Blood Pressure 202/89 H 196/93 H Blood Pressure Mean 126 127 Pulse Ox 96 Oxygen Delivery Method Room Air Positive well nourished and well developed General Appearance ED: well developed HEENT HEENT Narrative: Normocephalic atraumatic Eyes PERRL and EOMs intact bilaterally Neck full ROM and supple Neck Narrative: No bony deformity or step-off of the cervical spine No midline tenderness to palpation Chest Wall Chest Narrative: There is pain on palpation along the right lateral chest wall/rib region 7-10 without bony deformity or crepitance No overlying abrasions or ecchymosis Resp normal respiratory effort and clear to auscultation bilaterally Resp Narrative: Breath sounds are diminished throughout but overall clear to auscultation without signs of respiratory distress Cardio regular rate and regular rhythm Rate: other Other Details: Radial and carotid pulses are equal and symmetric GI non-tender, non-distended and no masses GI Narrative: No voluntary guarding or rigidity or pulsatile mass No overlying abrasions or ecchymosis noted Auscultation: normoactive bowel sounds Palpation: soft Extremity Extremity Narrative: Pelvis is stable there is no shortening or external rotation of either lower extremity Patient can lift both legs and bend at the knees without difficulty or pain Right upper extremity is dianna (more content not included)... Normal [facility] Humerus min 2 Viewson 2024 Humerus min 2 Views [facility] Services [address] [place], [place] [id number] Humerus min 2 Views MR#: [id number] Acct: [id number] Name: JOSHUA NOGUEIRA Rep #: [id number] : 1955 F 69 From: Darnell kumar MD PCP: Dr. Agnes Crum DO Status: PRE ER Study: Humerus min 2 Views Date of Exam: 12/25/24 Exam# [id number] Ordering Dr: Judd Brown DO PROCEDURE: HUMERUS MIN 2 VIEWS 12/25/2024 REASON FOR EXAM: INJURY TECHNIQUE: Procedure Code: RADHUM Modality: DX Procedure: HUMERUS MIN 2 VIEWS Laterality: Right. COMPARISON: None. FINDINGS: Acute spiral displaced fracture of the humeral surgical neck. Mild osteopenia of the visualized bones. Degenerative joint disease. No dislocation is seen. No lytic or blastic bone lesion is noted. RAD/Humerus min 2 Views IMPRESSION: Acute spiral displaced fracture of the humeral surgical neck. Reading Location: [place] [address] CC: Dr. Agnes Crum DO; Judd Brown DO Materials Analyst: Signed Normal [facility] Pelvis 1 or 2 Viewson 2024 Pelvis 1 or 2 Views [facility] [address] [place] [address] Pelvis 1 or 2 Views MR#: [id number] Acct: [id number] Name: JOSHUA NOGUEIRA Rep #: [id number] : 1955 F 69 From: Darnell kumar MD PCP: Dr. Agnes Crum DO Status: PRE ER Study: Pelvis 1 or 2 Views Date of Exam: 12/25/24 Exam# [id number] Ordering Dr: Judd Brown DO PROCEDURE: PELVIS 1 OR 2 VIEWS 12/25/2024 REASON FOR EXAM: FALL TECHNIQUE: Procedure Code: RADPEL Modality: DX Procedure: PELVIS 1 OR 2 VIEWS COMPARISON: None. FINDINGS: Moderate amount of fecal residue in the large bowels. Mild osteopenia of the visualized bones. Degenerative joint disease. No fracture or dislocation is seen. No lytic or blastic bone lesion is noted. RAD/Pelvis 1 or 2 Views IMPRESSION: No evidence for acute abnormality. Reading Location: [place] [address] CC: Dr. Agnes Crum DO; Judd Brown DO Materials Analyst: Signed Normal [facility] Shoulder min 2 Viewson 12-25 Shoulder min 2 Views [facility] [address] [place] [address] Shoulder min 2 Views MR#: [id number] Acct: [id number] Name: JOSHUA NOGUEIRA Rep #: [id number] : 1955 F 69 From: Darnell kumar MD PCP: Dr. Agnes Crum DO Status: PRE ER Study: Shoulder min 2 Views Date of Exam: 12/25/24 Exam# [id number] Ordering Dr: Judd Brown DO PROCEDURE: SHOULDER MIN 2 VIEWS 12/25/2024 REASON FOR EXAM: INJURY TECHNIQUE: Procedure Code: RADSH Modality: DX Procedure: SHOULDER MIN 2 VIEWS Laterality: Right. COMPARISON: None. FINDINGS: Acute spiral displaced fracture of the humeral surgical neck. Mild osteopenia of the visualized bones. Degenerative joint disease. No other fracture or dislocation is seen. No lytic or blastic bone lesion is noted. RAD/Shoulder min 2 Views IMPRESSION: Acute spiral displaced fracture of the humeral surgical neck. Reading Location: [place] [address] CC: Dr. Agnes Crum DO; Judd Brown DO Materials Analyst: Signed Normal [facility] Bone density reportOrdered B y: Eliezer Branch on 10-30-2024 Study report Skeletal system DXA [facility] Services [address] [place] [id number] Dexa Bone Density Study MR#: [id number] Acct: [id number] Name: JOSHUA NOGUEIRA Rep #: [id number] : 1955 F 69 From: George Branch MD PCP: Dr. Agnes Crum DO Status: REG CLI Study:Dexa Bone Density Study Date of Exam: 10/30/24 Exam# [id number] Ordering Dr: Agnes Crum DO PROCEDURE: DEXA [...] Recommend follow-up as clinically warranted. [facility] CC: Dr. Agnes Crum, DO ~ Materials Analyst: Signed [facility] Dexa Bone Density Studyon Dexa Bone Density Study [facility] Services [address] [place] [address] Dexa Bone Density Study MR#: [id number] Acct: [id number] Name: JOSHUA NOGUEIRA Rep #: [id number] : 1955 F 69 From: Eliezer silva MD PCP: Dr. Agnes Crum DO Status: REG CLI Study: Dexa Bone Density Study Date of Exam: 10/30/24 Exam# [id number] Ordering Dr: Agnes Crum DO PROCEDURE: DEXA [...] Recommend follow-up as clinically warranted. Reading Location: [place] [address] CC: Dr. Agnes Crum DO Materials Analyst: Signed Normal [facility] Absolute lymphocyte countOrd ered By: Agnes Crum on 10-25-2024 Lymphocytes Auto (Unsp spec) [#/Vol] 1.68 10*3/uL 0.83-4.51 [facility] Absolute neutrophil countOrd ered By: Agnes Crum on 10-25-2024 Neutrophils (Bld) [#/Vol] 4.3 10*3/uL 2.0-7.7 [facility] Anion gap in Serum or Plasma Ordered By: Agnes Crum on 10-25-2024 Anion gap [Moles/Vol] 11 mmol/L 5-[address] [facility] Automated lymphocyte count a s percentage of total leukocytesOrdered By: Agnes Crum on 10-25-2024 Lymphocytes/100 WBC Auto (Unsp spec) 25.5 % 19- [facility] BUN/creatinine ratioOrdered By: Agnes Crum on 10-25-2024 Urea nitrogen/Creatinine [Mass ratio] 14.0 mg/mg 10- [facility] Basophil percentageOrdered B y: Agnes Crum on 10-25-2024 Basophils/100 WBC (Bld) 0.6 % 0-1 [facility] Bilirubin, totalOrdered By: Agnes Crum on 10-25-2024 Bilirubin [Mass/Vol] 0.71 mg/dL 0.00-1.30 [facility] CBC W/Diff, Automatedon 10-15 Absolute Lymph 1.68 X10 3/uL Normal 0.83-4.51 [facility] Comment on above: Performed By: #### L 100.0100, L506.1001, L501.9520, L500.4050 #### [facility] [address] [place], [address] Absolute Neut 4.3 X10 3/uL Normal 2.0-7.7 [facility] Comment on above: Performed By: #### L 100.0100, L506.1001, L501.9520, L500.4050 #### [facility] [address] [place], [address] Basophils/100 WBC (Bld) 0.6 % Normal 0-1 [facility] Comment on above: Performed By: #### L 100.0100, L506.1001, L501.9520, L500.4050 #### [facility] [address] [place], [address] Eosinophils/100 WBC (Bld) 2.9 % Normal 0-5 [facility] Comment on above: Performed By: #### L 100.0100, L506.1001, L501.9520, L500.4050 #### [facility] [address] [place], [address] Erythrocyte distribution width (RBC) [Ratio] 14.6 % Normal 11.6-14.6 [facility] Comment on above: Performed By: #### L 100.0100, L506.1001, L501.9520, L500.4050 #### [facility] [address] [place], [address] Hematocrit (Bld) [Volume fraction] 40.7 % Normal 37-47 [facility] Comment on above: Performed By: #### L 100.0100, L506.1001, L501.9520, L500.4050 #### [facility] [address] [place], [address] Hemoglobin (Bld) [Mass/Vol] 13.4 g/dL Normal 12.0-15.0 [facility] Comment on above: Performed By: #### L 100.0100, L506.1001, L501.9520, L500.4050 #### [facility] [address] [place], [address] IG% 0.200 Normal 0.0-0.9 [facility] Comment on above: Result Comment: IG% - Immature Granulocytes (promyelocytes, myelocytes and metamyelocytes) > 1% indicates that a LEFT SHIFT is Present. Performed By: #### L 100.0100, L506.1001, L501.9520, L500.4050 #### [facility] [address] [place], [address] Lymphocytes/100 WBC (Bld) 25.5 % Normal 19-41 [facility] Comment on above: Performed By: #### L 100.0100, L506.1001, L501.9520, L500.4050 #### [facility] [address] [place], [address] MCH (RBC) [Entitic mass] 30.5 pg Normal 27.0-32.0 [facility] Comment on above: Performed By: #### L 100.0100, L506.1001, L501.9520, L500.4050 #### [facility] [address] [place], [address] MCHC (RBC) [Mass/Vol] 32.9 g/dL Normal 32-[address] [facility] Comment on above: Performed By: #### L 100.0100, L506.1001, L501.9520, L500.4050 #### [facility] [address] [place], [address] MCV (RBC) [Entitic vol] 92.5 fL Normal 81-99 [facility] Comment on above: Performed By: #### L 100.0100, L506.1001, L501.9520, L500.4050 #### [facility] [address] [place], [address] Monocytes/100 WBC (Bld) 5.8 % Normal 0-10 [facility] Comment on above: Performed By: #### L 100.0100, L506.1001, L501.9520, L500.4050 #### [facility] [address] [place], [address] Neutrophils/100 WBC (Bld) 65.0 % Normal 47-70 [facility] Comment on above: Performed By: #### L 100.0100, L506.1001, L501.9520, L500.4050 #### [facility] [address] [place], [address] Nucleated RBC (Bld) [#/Vol] 0 10*3/uL Normal 0-5 [facility] Comment on above: Performed By: #### L 100.0100, L506.1001, L501.9520, L500.4050 #### [facility] [address] [place], [address] Platelet mean volume (Bld) [Entitic vol] 10.5 fL Normal 6.2-12.0 [facility] Comment on above: Performed By: #### L 100.0100, L506.1001, L501.9520, L500.4050 #### [facility] [address] [place], [address] Platelets (Bld) [#/Vol] 211 10*3/uL Normal 150-450 [facility] Comment on above: Performed By: #### L 100.0100, L506.1001, L501.9520, L500.4050 #### [facility] [address] [place], [address] RBC (Bld) [#/Vol] 4.40 10*6/uL Normal 4.2-5.4 [facility] Comment on above: Performed By: #### L 100.0100, L506.1001, L501.9520, L500.4050 #### [facility] [address] [place], [address] RDW SD 49.6 fl High 35.1-43.9 [facility] Comment on above: Performed By: #### L 100.0100, L506.1001, L501.9520, L500.4050 #### [facility] [address] [place], [address] WBC (Bld) [#/Vol] 6.6 10*3/uL Normal 4.4-11.0 [facility] Comment on above: Performed By: #### L 100.0100, L506.1001, L501.9520, L500.4050 #### [facility] [address] [place], [address] Carbon dioxide, total [Moles /volume] in Central venous bloodOrdered By: Agnes Crum on 10-25-2024 CO2 [Moles/Vol] 27.0 mmol/L 21.0-32.0 [facility] Chloride assayOrdered By: Mt Crum on 10-25-2024 Chloride [Moles/Vol] 104 mmol/L 98-108 [facility] Comprehensive Metabolic Prof ilon 10-25-2024 Albumin [Mass/Vol] 4.5 g/dL Normal 3.4-4.8 [facility] Comment on above: Performed By: #### L 100.0100, L506.1001, L501.9520, L500.4050 ####[facility] [address] [place], [address] Albumin/Globulin [Mass ratio] 1.5 {ratio} Normal 0.9-2.4 [facility] Comment on above: Performed By: #### L 100.0100, L506.1001, L501.9520, L500.4050 ####[facility] [address] [place], [address] ALK PHOS 48 U/L Normal 35-104 [facility] Comment on above: Performed By: #### L 100.0100, L506.1001, L501.9520, L500.4050 ####[facility] [address] [place], [address] ALT [Catalytic activity/Vol] 12 U/L Normal <=34 [facility] Comment on above: Performed By: #### L 100.0100, L506.1001, L501.9520, L500.4050 ####[facility] [address] [place], [address] AST [Catalytic activity/Vol] 20 U/L Normal <=31 [facility] Comment on above: Performed By: #### L 100.0100, L506.1001, L501.9520, L500.4050 ####[facility] [address] [place], [address] Bilirubin [Mass/Vol] 0.71 mg/dL Normal 0.00-1.30 [facility] Comment on above: Performed By: #### L 100.0100, L506.1001, L501.9520, L500.4050 ####[facility] [address] [place], [address] BUN/CRE 14.0 RATIO Normal 10-20 [facility] Comment on above: Performed By: #### L 100.0100, L506.1001, L501.9520, L500.4050 ####[facility] [address] [place], [address] Calcium [Mass/Vol] 9.2 mg/dL Normal 7.6-11.0 [facility] Comment on above: Performed By: #### L 100.0100, L506.1001, L501.9520, L500.4050 ####[facility] [address] [place], [address] Chloride [Moles/Vol] 104 mmol/L Normal 98-108 [facility] Comment on above: Performed By: #### L 100.0100, L506.1001, L501.9520, L500.4050 ####[facility] [address], [address] CO2 [Moles/Vol] 27.0 mmol/L Normal 21.0-32.0 [facility] Comment on above: Performed By: #### L 100.0100, L506.1001, L501.9520, L500.4050 ####[facility] [address] [place], [address] Creatinine [Mass/Vol] 0.80 mg/dL Normal 0.70-1.[address] [facility] Comment on above: Performed By: #### L 100.0100, L506.1001, L501.9520, L500.4050 ####[facility] [facility] [address], [address] GAP 11 Normal 5-15 [facility] Comment on above: Performed By: #### L 100.0100, L506.1001, L501.9520, L500.4050 ####[facility] [address], [address] GFR/1.73 sq M.predicted among non-blacks MDRD (S/P/Bld) [Vol rate/Area] 79 mL/min/{1.73_m2} Normal >60 [facility] Comment on above: Result Comment: mL/m in/1.73m2 CKD-EPI Creatinine Equation (2020) Performed By: #### L 100.0100, L506.1001, L501.9520, L500.4050 ####[facility] [address], [address] Globulin (S) [Mass/Vol] 3.0 g/dL Normal 2.2-4.2 [facility] Comment on above: Performed By: #### L 100.0100, L506.1001, L501.9520, L500.4050 ####[facility] [address] [place], [address] Glucose [Mass/Vol] 92 mg/dL Normal 70-99 [facility] Comment on above: Performed By: #### L 100.0100, L506.1001, L501.9520, L500.4050 ####[facility] [address], [address] Potassium [Moles/Vol] 4.2 mmol/L Normal 3.3-5.[address] [facility] Comment on above: Performed By: #### L 100.0100, L506.1001, L501.9520, L500.4050 ####[facility] [address] [place], [address] Sodium [Moles/Vol] 141 mmol/L Normal 133-145 [facility] Comment on above: Performed By: #### L 100.0100, L506.1001, L501.9520, L500.4050 ####[facility] [address] [place], [address] T PROT 7.4 g/dL Normal 5.9-8.4 [facility] Comment on above: Performed By: #### L 100.0100, L506.1001, L501.9520, L500.4050 ####[facility] [address] [place], [address] Urea nitrogen [Mass/Vol] 11 mg/dL Normal 4-19 [facility] Comment on above: Performed By: #### L 100.0100, L506.1001, L501.9520, L500.4050 ####[facility] [address] [place], [address] Eosinophil percentageOrdered By: Agnes Crum on 10-25-2024 Eosinophils/100 WBC (Bld) 2.9 % 0-5 [facility] Erythrocyte distribution wid th ratioOrdered By: Agnes Crum on 10-25-2024 Erythrocyte distribution width (RBC) [Ratio] 14.6 % 11.6-14.6 [facility] Erythrocyte distribution wid th standard deviationOrdered By: Agnes Crum on 10-25-2024 Erythrocyte distribution width (RBC) [Ratio] 49.6 fl High 35.1-43.9 [facility] Glomerular filtration rate ( GFR) estimation/1.73 sq m using serum, plasma, or whole bOrdered By: Agnes Crum on 10-25-2024 GFR/1.73 sq M.predicted among non-blacks MDRD (S/P/Bld) [Vol rate/Area] 79 mL/min/{1.73_m2} >60 [facility] Comment on above: mL/min/1.73m2 CKD-EP I Creatinine Equation (2020) Hematocrit Auto (Bld) [Volum e fraction]Ordered By: Agnes Crum on 10-25-2024 Hematocrit (Bld) [Volume fraction] 40.7 % 37-47 [facility] Hemoglobin measurementOrdere d By: Agnes Crum on 10-25-2024 Hemoglobin (Bld) [Mass/Vol] 13.4 g/dL 12.0-15.0 [facility] Immature granulocytes/100 WB C Auto (Bld)Ordered By: Agnes Crum 10-25-2024 Immature granulocytes/100 WBC (Bld) 0.200 % 0.0-0.9 [facility] Comment on above: IG% - Immature Granu locytes (promyelocytes, myelocytes and metamyelocytes) > 1% indicates that a LEFT SHIFT is Present. Laboratory - Chemistry and C hemistry - challengeOrdered By: Agnes Crum on 10-25-2024 AST [Catalytic activity/Vol] 20 U/L <32 [facility] MCV (mean corpuscular volume ) determinationOrdered By: Agnes Crum 10-25-2024 MCV (RBC) [Entitic vol] 92.5 fL 81-99 [facility] Mean corpuscular hemoglobin (MCH) determinationOrdered By: Agnes Crum 10-25-2024 MCH (RBC) [Entitic mass] 30.5 pg 27.0-32.0 [facility] Mean corpuscular hemoglobin concentration (MCHC) determinationOrdered By: Agnes Crum 10-25-2024 MCHC (RBC) [Mass/Vol] 32.9 g/dL 32-[address] [facility] Mean platelet volume determi nationOrdered By: Agnes Crum on 10-25-2024 Platelet mean volume (Bld) [Entitic vol] 10.5 fL 6.2-12.0 [facility] Monocyte percentageOrdered B y: Agnes Crum on 10-25-2024 Monocytes/100 WBC (Bld) 5.8 % 0-10 [facility] Neutrophil percentageOrdered By: Agnes Crum on 10-25-2024 Neutrophils/100 WBC (Bld) 65.0 % 47-70 [facility] Nucleated red blood cell per centageOrdered By: Agnes Crum on 10-25-2024 Nucleated RBC/100 WBC (Bld) [Ratio] 0 % 0-5 [facility] Platelet countOrdered By: Mt Crum on 10-25-2024 Platelets (Bld) [#/Vol] 211 10*3/uL 150-450 [facility] Potassium measurement (mass/ volume)Ordered By: Agnes Crum on 10-25-2024 Potassium (Unsp spec) [Mass/Vol] 4.2 mmol/L 3.3-5.1 [facility] RBC Auto (Bld) [#/Vol]Ordere d By: Agnes Crum on 10-25-2024 RBC (Bld) [#/Vol] 4.40 10*6/uL 4.2-5.4 [facility] [place] Serum creatinine measurement (mass/volume)Ordered By: Agnes Crum on 10-25-2024 Creatinine [Mass/Vol] 0.80 mg/dL 0.70-1.[address] [facility] Serum globulin measurementOr dered By: Agnes Crum on 10-25-2024 Globulin (S) [Mass/Vol] 3.0 g/dL 2.2-4.2 [facility] Serum glucose measurement (m ass/volume)Ordered By: Agnes Crum on 10-25-2024 Glucose [Mass/Vol] 92 mg/dL 70-99 [facility] Serum or plasma alanine pizarro otransferase (ALT) measurementOrdered By: Agnes Crum on 10-25-2024 ALT [Catalytic activity/Vol] 12 U/L <35 [facility] Serum or plasma albumin anthony urement (mass/volume)Ordered By: Agnes Crum on 10-25-2024 Albumin [Mass/Vol] 4.5 g/dL 3.4-4.8 [facility] Serum or plasma albumin/glob ulin mass ratioOrdered By: Agnes Crum on 10-25-2024 Albumin/Globulin [Mass ratio] 1.5 {ratio} 0.9-2.4 [facility] Serum or plasma alkaline sreekanth sphatase measurementOrdered By: Agnes Crum on 10-25-2024 ALP [Catalytic activity/Vol] 48 U/L 35-104 [facility] Serum or plasma calcium anthony urement (mass/volume)Ordered By: Agnes Crum on 10-25-2024 Calcium [Mass/Vol] 9.2 mg/dL 7.6-11.0 [facility] Serum or plasma urea nitroge n measurement (mass/volume)Ordered By: Agnes Crum on 10-25-2024 Urea nitrogen [Mass/Vol] 11 mg/dL 4-19 [facility] Sodium levelOrdered By: Agnes Crum on 10-25-2024 Sodium [Moles/Vol] 141 mmol/L 133-145 [facility] TSH DL <= 0.005 mIU/L QnOrde red By: Agnes Crum on 10-25-2024 TSH Qn 1.000 uIU/mL 0.300-4.200 [facility] Thyroid Stim Hormone (TSH)on 10-25-2024 TSH 1.000 uIU/mL Normal 0.300-4.200 [facility] Comment on above: Performed By: #### L 100.0100, L506.1001, L501.9520, L500.4050 ####[facility] [address] [place], [place], [id number] Total proteinOrdered By: Leanne Crum on 10-25-2024 Protein [Mass/Vol] 7.4 g/dL 5.9-8.4 [facility] Vitamin D,25 Hydroxyon 10-25 Vitamin D 25-OH 28.7 ng/mL Low 30-100 [facility] Comment on above: Result Comment: Sue min D Status Deficiency: <20 ng/mL (50nmol/L) Insufficiency: 20-30 ng/mL (50-75 nmol/L) Sufficiency: 30-100 ng/mL (75-250 nmol/L) Toxicity: >100 ng/mL (>250 nmol/L) Performed By: #### L 100.0100, L506.1001, L501.9520, L500.4050 ####[facility] [address] [place], [address] White blood cell (WBC) count Ordered By: Agnes Crum on 10-25-2024 WBC (Bld) [#/Vol] 6.6 10*3/uL 4.4-11.0 [facility] Breast imaging reportOrdered By: Eliezer Branch on 10-10-2024 Study report [facility] Imaging Services [address] [place] [address] SCRN MAMM (CAD)W/ALYSSA BILAT MR#: [id number] Acct: [id number] Name: JOSHUA NOGUEIRA Rep #: [id number] : 1955 F 69 From: George Branch MD PCP: Dr. Agnes Crum DO Status: REG CLI Study:SCRN MAMM (CAD)W/ALYSSA BILAT Date of Exa m: 10/10/24 Exam# [id number] Ordering Dr: Agnes Crum DO EXAM: SCRN [...] be mailed to the patient. Reading Location: [id number] CC: Dr. Agnes Crum DO ~ Materials Analyst: Signed [facility] SCRN MAMM (CAD)W/ALYSSA BILATo n 10-10-2024 SCRN MAMM (CAD)W/ALYSSA BILAT [facility] Imaging Services [address] [place], [place] [id number] SCRN MAMM (CAD)W/ALYSSA BILAT MR#: [id number] Acct: [id number] Name: JOSHUA NOGUEIRA Rep #: [id number] : 1955 F 69 From: Eliezer silva MD PCP: Dr. Agnes Crum DO Status: [facility] CLI Study: SCRN MAMM (CAD)W/ALYSSA BILAT Date of Exam: 09/15 09/07 Exam# [id number] Ordering Dr: Agnes Crum DO EXAM: SCRN [...] be mailed to the patient. Reading Location: LUIGI CC: Dr. Agnse Crum, DO Materials Analyst: Signed Normal [facility] Urgent Care Visit Reporton 0 09-05-2024 Urgent Care Visit Report [facility] [address], [address] [place] [address] OFFICE VISIT Date of Service: 09/05/24 MR#: [id number] Acct: [id number] Name: JOSHUA NOGUEIRA Rep #: [id number] : 1955 Provider: DALLAS Brasher Age/Sex: 69/F Location: [facility] Status: Signed Intake Vital Signs 02/13/24 09:26 [...] way she gets pain in her ear. [facility] Medical History (Updated 02/13/24 @ 09:35 by Titi Moomaw, POLICY ISSUE CLERK-C) Allergic reaction Hypothyroidism Fatigue Surgical History Tumor [...] not impr (more content not included)... Normal [facility] Urgent Care Visit Reporton 1 Urgent Care Visit Report [facility] [address], [address] [place] [address] OFFICE VISIT Date of Service: 02/13/24 MR#: [id number] Acct: [id number] Name: JOSHUA NOGUEIRA Rep #: [id number] : 1955 Provider: SANJAY Patel Age/Sex: 68/F Location: [facility] Status: Signed Intake Vital Signs 01/05/24 07:23 [...] a Grinch mask that she wore on [place] that could of had latex in it. [facility] Medical History (Updated 02/13/24 @ 09:35 [...] patient put on a latex mask for [employer] and subsequently developed swelling on her face [...] to take Zyrtec. She will buy this [id number]. Discussed with her that symptoms may last [...] past year?: No 02/13/24 0936 Date Titi Jorge POLICY ISSUE CLERK-C Cosigner Signature: Date (if applicable) CC: Normal [facility] Urgent Care Visit Reporton 1 03-06-2023 Urgent Care Visit Report [facility] [address], [address] [place] [address] OFFICE VISIT Date of Service: 01/05/24 MR#: [id number] Acct: [id number] Name: JOSHUA NOGUEIRA Rep #: [id number] : 1955 Provider: DALLAS Hill Age/Sex: 68/F Location: [facility] Status: Signed Intake Vital Signs 01/12/23 12:52 01/05/24 07:23 Height 5 ft 7 in 5 ft 7 in BP 122/70 H Blood Pressure Location Lt brachial Position Sitting Respiration 14 Pulse 69 Pulse Source NIBP Temp 97.9 F Temp Source Oral Pulse Oximetry (%) 96 Oxygen Delivery Method room air Intake Visit Reasons: Vertigo Chief Complaint: vertigo, dizziness and off balance Phlebotomy Tech Required: No Is patient in pain?: No [...] 12 hours, had sinus infection last week [facility] Medical History (Updated 01/20/23 @ 00:01 by [...] Exam Const General: cooperative and healthy appearing [facility] Head: normocephalic and atraumatic Ears: [...] Gray Signature: Date (if applicable) CC: Normal [facility] .Auto Diffon 02-10-2023 Basophil, Absolute 0.0 10 3/mcL Normal 0.0-0.2 [facility] ([place] Comment on above: Performed By: #### C SAVANNAH CRENSHAW ANEU #### [address] [address] Basophils/100 WBC (Bld) 0.5 % Normal 0.0-2.5 [facility] ([place] Comment on above: Performed By: #### SAVANNAH ELIZABETH ANEU #### [address] [address] Eosinophil, Absolute 0.0 10 3/mcL Normal 0.0-0.4 [facility] ([place] Comment on above: Performed By: #### SAVANNAH ELIZABETH ANEU #### [address] [address] Eosinophils/100 WBC (Bld) 0.2 % Normal 0.0-7.0 [facility] ([place] Comment on above: Performed By: #### SAVANNAH ELIZABETH ANEU #### [address] [address] Lymphocyte, Absolute 1.1 10 3/mcL Normal 0.8-3.9 [facility] ([place] Comment on above: Performed By: #### C SAVANNAH CRENSHAW, ANEU #### [address] [address] Lymphocytes/100 WBC (Bld) 12.0 % Normal 10.0-50.0 [facility] ([place] Comment on above: Performed By: #### SAVANNAH ELIZABETH, ANEU #### [address] [address] Monocyte, Absolute 0.7 10 3/mcL Normal 0.2-1.0 [facility] ([place] Comment on above: Performed By: #### SAVANNAH ELIZABETH, ANEU #### [address] [address] Monocytes/100 WBC (Bld) 7.9 % Normal 1.7-13.0 [facility] ([place] Comment on above: Performed By: #### SAVANNAH ELIZABETH, ANEU #### [address] [address] Neutrophils/100 WBC (Bld) 79.4 % Normal 37.0-80.0 [facility] ([place] Comment on above: Performed By: #### SAVANNAH ELIZAEBTH, ANEU #### [address] [address] .GFRon 02-10-2023 GFR 87 ml/min/1.73sqm Normal [facility] ([place] Comment on above: Result Comment: GFR Population [...] BC, ADIFF, GFR, BMP, PRO, ANEU #### [address] [address] GFR Non- 72 ml/min/1.73sqm Normal [facility] ([place] Comment on above: Result Comment: GFR Population [...] BC, ADIFF, GFR, BMP, PRO, ANEU #### [address] [address] .NEUABSon 02-10-2023 Neutrophil, Absolute 7.4 10 3/mcL High 2.9-6.2 [facility] ([place] Comment on above: Performed By: #### C BC, ADIFF, ANEU #### [address] [address] BMPon 02-10-2023 BUN/Creatinine Ratio 16 ratio Normal 7-27 [facility] ([place] Comment on above: Performed By: #### C BC, ADIFF, GFR, BMP, PRO, ANEU #### [address] [address] Calcium [Mass/Vol] 8.3 mg/dL Low 8.4-10.2 [facility] ([place] Comment on above: Performed By: #### C BC, ADIFF, GFR, BMP, PRO, ANEU #### [address] [address] Chloride [Moles/Vol] 108 mmol/L High 98-107 [facility] ([place] Comment on above: Performed By: #### C BC, ADIFF, GFR, BMP, PRO, ANEU #### [address] [address] CO2 [Moles/Vol] 28 mmol/L Normal 23-31 [facility] ([place] Comment on above: Performed By: #### C BC, ADIFF, GFR, BMP, PRO, ANEU #### [address] [address] Creatinine [Mass/Vol] 0.79 mg/dL Normal 0.55-1.02 [facility] Comment on above: Performed By: #### C BC, ADIFF, GFR, BMP, PRO, ANEU #### [address] [address] Electrolyte Balance 7.0 mEq/L Normal 4.0-15.0 [facility] ([place] Comment on above: Performed By: #### C BC, ADIFF, GFR, BMP, PRO, ANEU #### [address] [address] Glucose [Mass/Vol] 104 mg/dL Normal 80-115 [facility] ([place] Comment on above: Performed By: #### C BC, ADIFF, GFR, BMP, PRO, ANEU #### [address] [address] Potassium [Moles/Vol] 4.1 mmol/L Normal 3.5-5.1 [facility] Comment on above: Performed By: #### C BC, ADIFF, GFR, BMP, PRO, ANEU #### [address] [address] Sodium [Moles/Vol] 143 mmol/L Normal 136-145 [facility] ([place] Comment on above: Performed By: #### C BC, ADIFF, GFR, BMP, PRO, ANEU #### [address] [address] Urea nitrogen [Mass/Vol] 13 mg/dL Normal 7-18 [facility] ([place] Comment on above: Performed By: #### C BC, SAVANNAH, GFR, BMP, PRO, ANEU #### [address] [address] CBCon 02-10-2023 Erythrocyte distribution width (RBC) [Ratio] 14.6 % High 11.5-14.5 [facility] ([place] Comment on above: Performed By: #### C BCSAVANNAH, ANEU #### [address] [address] Hematocrit (Bld) [Volume fraction] 35.9 % Low 37.0-47.0 [facility] ([place] Comment on above: Performed By: #### C SAVANNAH CRENSHAW, ANEU #### [address] [address] Hgb 11.8 G/dL Low 12.0-16.0 [facility] ([place] Comment on above: Performed By: #### C BCSAVANNAH, ANEU #### [address] [address] MCH (RBC) [Entitic mass] 29.4 pg Normal 27.0-31.2 [facility] ([place] Comment on above: Performed By: #### C BCSAVANNAH, ANEU #### [address] [address] MCHC 32.8 G/dL Low 33.0-37.0 [facility] ([place] Comment on above: Performed By: #### C BCSAVANNAH, ANEU #### [address] [address] MCV (RBC) [Entitic vol] 89.5 fL Normal 80.0-94.0 [facility] ([place] Comment on above: Performed By: #### C BCSAVANNAH, ANEU #### [address] [address] Platelet 191 10 3/mcL Normal 130-400 [facility] ([place] Comment on above: Performed By: #### C BCSAVANNAH, ANEU #### [address] [place] [address] [place], [place] [address] Platelet mean volume (Bld) [Entitic vol] 8.0 fL Normal 7.4-10.4 [facility] ([place] Comment on above: Performed By: #### C SAVANNAH CRENSHAW, ANEU #### [address] [place] [address] [place], [place] [address] RBC 4.00 10 6/mcL Low 4.20-5.40 [facility] ([place] Comment on above: Performed By: #### C SAVANNAH CRENSHAW, ANEU #### [address] [place] [address] [place], [place] [address] WBC 9.3 10 3/mcL Normal 4.6-10.8 [facility] ([place] Comment on above: Performed By: #### C SAVANNAH CRENSHAW, ANEU #### [address] [place] [address] [place], [place] [address] LABORATORYOrdered By: SYSTEM SYSTEM on 02-10-2023 Basophil, [...] Coag (Bld) [Time] 27.6 s Normal 25.0-35.0 [facility] ([place] Comment on above: Result Comment: For Heparin anticoagulation therapy, the recommended therapeutic range is: 50.6-87.4 seconds. Patients on heparin therapy may have an extreme result. Heparin dose (APTT) None Normal [facility] ([place]) LABORATORYOrdered By: Gold Christopher on 02-09-2023 aPTT [...] not reported on this accession number. Normal [facility] ([place]) .Auto Diffon 01-18-2023 Basophil, Absolute 0.0 10 3/mcL Normal 0.0-0.2 [facility] ([place]) Comment on above: Performed By: #### C BC, ADIFF, GFR, BMP, PRO, ANEU #### [address] [address] Basophils/100 WBC (Bld) 0.4 % Normal 0.0-2.5 [facility] ([place] Comment on above: Performed By: #### C BC, ADIFF, GFR, BMP, PRO, ANEU #### [address] [address] Eosinophil, Absolute 0.0 10 3/mcL Normal 0.0-0.4 [facility] ([place] Comment on above: Performed By: #### C BC, ADIFF, GFR, BMP, PRO, ANEU #### [address] [address] Eosinophils/100 WBC (Bld) 0.4 % Normal 0.0-7.0 [facility] ([place] Comment on above: Performed By: #### C BC, ADIFF, GFR, BMP, PRO, ANEU #### [address] [address] Lymphocyte, Absolute 2.4 10 3/mcL Normal 0.8-3.9 [facility] ([place] Comment on above: Performed By: #### C BC, ADIFF, GFR, BMP, PRO, ANEU #### [address] [address] Lymphocytes/100 WBC (Bld) 33.6 % Normal 10.0-50.0 [facility] ([place] Comment on above: Performed By: #### C BC, ADIFF, GFR, BMP, PRO, ANEU #### [address] [address] Monocyte, Absolute 0.6 10 3/mcL Normal 0.2-1.0 [facility] ([place] Comment on above: Performed By: #### C BC, ADIFF, GFR, BMP, PRO, ANEU #### [address] [address] Monocytes/100 WBC (Bld) 7.7 % Normal 1.7-13.0 [facility] ([place] Comment on above: Performed By: #### C BC, ADIFF, GFR, BMP, PRO, ANEU #### [address] [address] Neutrophils/100 WBC (Bld) 57.9 % Normal 37.0-80.0 [facility] ([place] Comment on above: Performed By: #### C BC, ADIFF, GFR, BMP, PRO, ANEU #### [address] [address] .GFRon 01-18-2023 GFR 74 ml/min/1.73sqm Normal [facility] ([place] Comment on above: Result Comment: GFR Population [...] BC, ADIFF, GFR, BMP, PRO, ANEU #### [address] [address] GFR Non- 61 ml/min/1.73sqm Normal [facility] ([place] Comment on above: Result Comment: GFR Population [...] BC, ADIFF, GFR, BMP, PRO, ANEU #### [address] [address] .NEUABSon 01-18-2023 Neutrophil, Absolute 4.2 10 3/mcL Normal 2.9-6.2 [facility] ([place] Comment on above: Performed By: #### C BC, ADIFF, GFR, BMP, PRO, ANEU #### [address] [address] BMPon 01-18-2023 BUN/Creatinine Ratio 23 ratio Normal 7-27 [facility] ([place] Comment on above: Performed By: #### C BC, ADIFF, GFR, BMP, PRO, ANEU #### [address] [address] Calcium [Mass/Vol] 8.4 mg/dL Normal 8.4-10.2 [facility] ([place] Comment on above: Performed By: #### C BC, ADIFF, GFR, BMP, PRO, ANEU #### [address] [address] Chloride [Moles/Vol] 103 mmol/L Normal 98-107 [facility] ([place] Comment on above: Performed By: #### C BC, ADIFF, GFR, BMP, PRO, ANEU #### [address] [address] CO2 [Moles/Vol] 33 mmol/L High 23-31 [facility] ([place] Comment on above: Performed By: #### C BC, ADIFF, GFR, BMP, PRO, ANEU #### [address] [address] Creatinine [Mass/Vol] 0.91 mg/dL Normal 0.55-1.02 [facility] Comment on above: Performed By: #### C BC, ADIFF, GFR, BMP, PRO, ANEU #### [address] [address] Electrolyte Balance 5.0 mEq/L Normal 4.0-15.0 [facility] ([place] Comment on above: Performed By: #### C BC, ADIFF, GFR, BMP, PRO, ANEU #### [address] [address] Glucose [Mass/Vol] 92 mg/dL Normal 80-115 [facility] ([place] Comment on above: Performed By: #### C BC, ADIFF, GFR, BMP, PRO, ANEU #### [address] [address] Potassium [Moles/Vol] 3.9 mmol/L Normal 3.5-5.1 [facility] Comment on above: Performed By: #### C BC, ADIFF, GFR, BMP, PRO, ANEU #### [address] [address] Sodium [Moles/Vol] 141 mmol/L Normal 136-145 [facility] ([place] Comment on above: Performed By: #### C BC, ADIFF, GFR, BMP, PRO, ANEU #### [address] [address] Urea nitrogen [Mass/Vol] 21 mg/dL High 7-18 [facility] ([place] Comment on above: Performed By: #### C BC, ADIFF, GFR, BMP, PRO, ANEU #### [address] [address] CBCon 01-18-2023 Erythrocyte distribution width (RBC) [Ratio] 14.9 % High 11.5-14.5 [facility] ([place] Comment on above: Order Comment: Pre-A dmission Testing Performed By: #### C BC, ADIFF, GFR, BMP, PRO, ANEU #### [address] [address] Hematocrit (Bld) [Volume fraction] 40.4 % Normal 37.0-47.0 [facility] ([place] Comment on above: Order Comment: Pre-A dmission Testing Performed By: #### C BC, ADIFF, GFR, BMP, PRO, ANEU #### [address] [address] Hgb 13.0 G/dL Normal 12.0-16.0 [facility] ([place] Comment on above: Order Comment: Pre-A dmission Testing Performed By: #### C BC, ADIFF, GFR, BMP, PRO, ANEU #### [place] [id number] MCH (RBC) [Entitic mass] 29.1 pg Normal 27.0-31.2 [facility] ([place] Comment on above: Order Comment: Pre-A dmission Testing Performed By: #### C BC, ADIFF, GFR, BMP, PRO, ANEU #### [address] [address] MCHC 32.2 G/dL Low 33.0-37.0 [facility] ([place] Comment on above: Order Comment: Pre-A dmission Testing Performed By: #### C BC, ADIFF, GFR, BMP, PRO, ANEU #### [address] [address] MCV (RBC) [Entitic vol] 90.4 fL Normal 80.0-94.0 [facility] ([place] Comment on above: Order Comment: Pre-A dmission Testing Performed By: #### C BC, ADIFF, GFR, BMP, PRO, ANEU #### [place] [id number] Platelet 218 10 3/mcL Normal 130-400 [facility] ([place] Comment on above: Order Comment: Pre-A dmission Testing Performed By: #### C BC, ADIFF, GFR, BMP, PRO, ANEU #### [address] [address] Platelet mean volume (Bld) [Entitic vol] 8.5 fL Normal 7.4-10.4 [facility] ([place] Comment on above: Order Comment: Pre-A dmission Testing Performed By: #### C BC, ADIFF, GFR, BMP, PRO, ANEU #### [address] [address] RBC 4.47 10 6/mcL Normal 4.20-5.40 [facility] ([place] Comment on above: Order Comment: Pre-A dmission Testing Performed By: #### C BC, ADIFF, GFR, BMP, PRO, ANEU #### [address] [address] WBC 7.2 10 3/mcL Normal 4.6-10.8 [facility] ([place] Comment on above: Order Comment: Pre-A dmission Testing Performed By: #### C BC, ADIFF, GFR, BMP, PRO, ANEU #### [address] [address] LABORATORYOrdered By: SYSTEM SYSTEM on 01-18-2023 Basophil, [...] [facility] Comment on above: Interpretive Data: Marley coreas [employer] (CHEST, 1991, 102:312S-25S) [...] Coag (PPP) [Time] 10.4 s Normal 9.0-14.2 [facility] ([place]) Comment on above: Performed By: #### C BC, ADIFF, GFR, BMP, PRO, ANEU #### [address] [address] PT International Ratio 0.9 Normal [facility] ([place]) Comment on above: Result Comment: [employer] (CHEST, 1991, 102:312S-25S) recommended therapeutic range for oral anticoagulant therapy is: LOW RISK: Prophylaxis of venous thrombosis INR: 2.0-3.0 Treatment of pulmonary embolism 2.0-3.0 Prevention of systemic embolism 2.0-3.0 HIGH RISK: Mechanical prosthetic valves 2.5-3.5 Performed By: #### C BC, ADIFF, GFR, BMP, PRO, ANEU #### [address] [address] XR CHEST 2 VIEWSon 3 XR CHEST [...] Sign Date: 01/18/2023 11:53:58 AM Ordering Provider: OC MITCHELL [facility] ([place]) Absolute lymphocyte counton 10-12-2021 Lymphocytes Auto (Unsp spec) [#/Vol] 1.62 10*3/uL 0.83-4.51 [facility] Work Phone: [phone] Basophil percentageon 2021 Basophils/100 WBC (Bld) 1.0 % 0-1 [facility] Work Phone: [phone] Bilirubin [Mass/Vol] 0.70 mg/dL 0.20-1.00 [facility] Work Phone: [phone] Comment on above: For patients on eltr ombopag therapy, use of Dimension [place] TBIL is not recommended. Chloride [Moles/Vol] 108 mmol/L 98-107 [facility] Work Phone: [phone] Eosinophils/100 WBC (Bld) 6.6 % 0-5 [facility] Work Phone: Glucose [Mass/Vol] 98 mg/dL 74-106 [facility] Work Phone: Neutrophils (Bld) [#/Vol] 2.7 10*3/uL 2.0-7.7 [facility] Work Phone: [phone] Neutrophils/100 WBC (Bld) 52.4 % 47-70 [facility] Work Phone: [phone] Potassium [Moles/Vol] 3.9 mmol/L 3.5-5.[address] [facility] Work Phone: [phone] Protein [Mass/Vol] 7.4 g/dL 6.4-8.2 [facility] Work Phone: Sodium [Moles/Vol] 142 mmol/L 136-145 [facility] Work Phone: [phone] WBC (Bld) [#/Vol] 5.1 10*3/uL 4.4-11.0 [facility] Work Phone: Blood erythrocytes count (nu mber/volume)on 10-12-2021 RBC (Bld) [#/Vol] 4.61 10*6/uL 4.2-5.4 [facility] Work Phone: Blood hemoglobin measurement (mass/volume)on 10-12-2021 Hemoglobin (Bld) [Mass/Vol] 13.9 g/dL 12.0-15.0 [facility] Work Phone: Blood lymphocytes/100 leukoc yteson 10-12-2021 Lymphocytes/100 WBC (Bld) 31.6 % 19-41 [facility] Work Phone: Blood monocytes/100 leukocyt eson 10-12-2021 Monocytes/100 WBC (Bld) 8.2 % 0-10 [facility] Work Phone: Blood platelet mean volumeon 10-12-2021 Platelet mean volume (Bld) [Entitic vol] 9.8 fL 6.2-12.0 [facility] Work Phone: Determination of erythrocyte mean corpuscular volume (MCV)on 10-12-2021 MCV (RBC) [Entitic vol] 91.3 fL 81-99 [facility] Work Phone: Erythrocyte sedimentation ra mehnaz 10-12-2021 ESR (Bld) [Velocity] 16 mm[facility]h 0-[facility]: Hematocrit Auto (Bld) [Volum e fraction]on 10-12-2021 Hematocrit (Bld) [Volume fraction] 42.1 % 37-47 [facility] Work Phone: Laboratory - Chemistry and C hemistry - challengeon 10-12-2021 ALP [Catalytic activity/Vol] 53 U/L 45-117 [facility] Work Phone: ALT [Catalytic activity/Vol] 17 U/L 13-56 [facility] Work Phone: CO2 [Moles/Vol] 28.0 mmol/L 21.0-32.0 [facility] Work Phone: Globulin (S) [Mass/Vol] 3.9 g/dL 2.2-4.2 [facility] Work Phone: Urea nitrogen/Creatinine [Mass ratio] 16.3 mg/mg 10-20 [facility] Work Phone: Laboratory - Hematology and Cell countson 10-12-2021 Erythrocyte distribution width (RBC) [Entitic vol] 46.9 fL 35.1-43.9 [facility] Work Phone: Erythrocyte distribution width (RBC) [Ratio] 13.7 % 11.6-14.6 [facility] Work Phone: Immature granulocytes/100 WBC (Bld) 0.200 % 0.0-0.9 [facility] Work Phone: Comment on above: IG% - Immature Granu locytes (promyelocytes, myelocytes and metamyelocytes) > 1% indicates that a LEFT SHIFT is Present. MCH (RBC) [Entitic mass] 30.2 pg 27.0-32.0 [facility] Work Phone: Nucleated RBC/100 WBC (Bld) [Ratio] 0 % 0-5 [facility] Work Phone: MCHC Auto (RBC) [Mass/Vol]on 10-12-2021 MCHC (RBC) [Mass/Vol] 33.0 g/dL 32-36 [facility] Work Phone: No Panel Informationon 10-12 Estimated GFR (MDRD) Amer 78 mL/min >60 [facility] Work Phone: Comment on above: GFR Calc Estimated GFR (MDRD) Non-Af Amer 65 mL/min >60 [facility] Work Phone: Comment on above: Non- GFR Calc Thyroid Stimulating Hormone (TSH) 1.23 uIU/mL 0.358-3.74 [facility] Work Phone: Platelets bldon 10-12-2021 Platelets (Bld) [#/Vol] 233 10*3/uL 150-450 [facility] Work Phone: Serum or plasma albumin anthony urement (mass/volume)on 10-12-2021 Albumin [Mass/Vol] 3.5 g/dL 3.2-5.0 [facility] Work Phone: Serum or plasma albumin/glob ulin mass ratioon 10-12-2021 Albumin/Globulin [Mass ratio] 0.9 {ratio} 0.9-2.4 [facility] Work Phone: Serum or plasma calcium anthony urement (mass/volume)on 10-12-2021 Calcium [Mass/Vol] 8.4 mg/dL 8.5-10.1 [facility] Work Phone: Serum or plasma creatinine m easurement (mass/volume)on 10-12-2021 Creatinine [Mass/Vol] 0.92 mg/dL 0.55-1.[address] [facility] Work Phone: Comment on above: The validity of the calculated GFR & GFRAA in patients over 70 years has not been determined. Clinical correlation is essential. Serum or plasma urea nitroge n measurement (mass/volume)on 10-12-2021 Urea nitrogen [Mass/Vol] 15 mg/dL 7-18 [facility] Work Phone: Thin prep Papanicolaou smear with manual screeningon 10-12-2021 Thin prep Papanicolaou smear with manual screening 17 U/L 15-37 [facility] Work Phone: Thin prep Papanicolaou smear with manual screening 6 5-15 [facility] Work Phone: Absolute lymphocyte counton 01-29-2021 Lymphocytes Auto (Unsp spec) [#/Vol] 1.65 10*3/uL 0.83-4.51 [facility] Work Phone: Basophil percentageon 2020 Chloride [Moles/Vol] 109 mmol/L 98-107 [facility] Work Phone: Eosinophils/100 WBC (Bld) 5.1 % 0-5 [facility] Work Phone: Glucose [Mass/Vol] 93 mg/dL 74-106 [facility] Work Phone: Comment on above: Please note revised GLUCOSE reference range effective 2017. Neutrophils (Bld) [#/Vol] 3.4 10*3/uL 2.0-7.7 [facility] Work Phone: Potassium [Moles/Vol] 3.9 mmol/L 3.5-5.[address] [facility] Work Phone: Sodium [Moles/Vol] 142 mmol/L 136-145 [facility] Work Phone: WBC (Bld) [#/Vol] 5.9 10*3/uL 4.4-11.0 [facility] Work Phone: Blood erythrocytes count (nu mber/volume)on 01-29-2021 RBC (Bld) [#/Vol] 4.57 10*6/uL 4.2-5.4 [facility] Work Phone: Blood hemoglobin measurement (mass/volume)on 01-29-2021 Hemoglobin (Bld) [Mass/Vol] 13.5 g/dL 12.0-15.0 [facility] Work Phone: Blood lymphocytes/100 leukoc yteson 01-29-2021 Lymphocytes/100 WBC (Bld) 28.2 % 19-41 [facility] Work Phone: Blood monocytes/100 leukocyt eson 01-29-2021 Monocytes/100 WBC (Bld) 7.2 % 0-10 [facility] Work Phone: Blood platelet mean volumeon 01-29-2021 Platelet mean volume (Bld) [Entitic vol] 9.5 fL 6.2-12.0 [facility] Work Phone: Determination of erythrocyte mean corpuscular volume (MCV)on 01-29-2021 MCV (RBC) [Entitic vol] 91.5 fL 81-99 [facility] Work Phone: Hematocrit Auto (Bld) [Volum e fraction]on 01-29-2021 Hematocrit (Bld) [Volume fraction] 41.8 % 37-47 [facility] Work Phone: Laboratory - Chemistry and C hemistry - challengeon 01-29-2021 CO2 [Moles/Vol] 30.0 mmol/L 21.0-32.0 [facility] Work Phone: Urea nitrogen/Creatinine [Mass ratio] 17.5 mg/mg 10-20 [facility] Work Phone: Laboratory - Hematology and Cell countson 01-29-2021 Basophils/100 WBC (Unsp spec) 0.9 % 0-1 [facility] Work Phone: Erythrocyte distribution width (RBC) [Entitic vol] 47.9 fL 35.1-43.9 [facility] Work Phone: Erythrocyte distribution width (RBC) [Ratio] 14.3 % 11.6-14.6 [facility] Work Phone: Immature granulocytes/100 WBC (Bld) 0.200 % 0.0-0.9 [facility] Work Phone: Comment on above: IG% - Immature Granu locytes (promyelocytes, myelocytes and metamyelocytes) > 1% indicates that a LEFT SHIFT is Present. MCH (RBC) [Entitic mass] 29.5 pg 27.0-32.0 [facility] Work Phone: Neutrophils/100 WBC (Bld) 58.4 % 47-70 [facility] Work Phone: Nucleated RBC/100 WBC (Bld) [Ratio] 0 % 0-5 [facility] Work Phone: MCHC Auto (RBC) [Mass/Vol]on 01-29-2021 MCHC (RBC) [Mass/Vol] 32.3 g/dL 32-[address] [facility] Work Phone: No Panel Informationon 01-29 Estimated GFR (MDRD) Amer 73 mL/min >60 [facility] Work Phone: Comment on above: GFR Calc Estimated GFR (MDRD) Non-Af Amer 61 mL/min >60 [facility] Work Phone: Comment on above: Non- GFR Calc Platelets bldon 01-29-2021 Platelets (Bld) [#/Vol] 220 10*3/uL 150-450 [facility] Work Phone: Serum or plasma calcium anthony urement (mass/volume)on 01-29-2021 Calcium [Mass/Vol] 8.8 mg/dL 8.5-10.1 [facility] Work Phone: Serum or plasma creatinine m easurement (mass/volume)on 01-29-2021 Creatinine [Mass/Vol] 0.97 mg/dL 0.55-1.[address] [facility] Work Phone: Comment on above: The validity of the calculated GFR & GFRAA in patients over 70 years has not been determined. Clinical correlation is essential. Serum or plasma urea nitroge n measurement (mass/volume)on 01-29-2021 Urea nitrogen [Mass/Vol] 17 mg/dL 7-18 [facility] Work Phone: Thin prep Papanicolaou smear with manual screeningon 01-29-2021 Thin prep Papanicolaou smear with manual screening 3 5-15 [facility] Work Phone: Vital Signs Date Time Vital Sign Value Performing Clinician Facility 09-05-2024 16:21-0400 Body height 170.[address] Agnes Crum DO Work Phone: [facility] 09-05-2024 16:21-0400 Body mass index (BMI) [Ratio] 24.7 kg/m2 Dr. Agnes Crum DO Work Phone: [facility] 09-05-2024 16:21-0400 Body temperature 98.8 [degF] Dr. Agnes Crum DO Work Phone: [facility] 09-05-2024 16:21-0400 Body weight 71.[address] Agnes Crum DO Work Phone: [facility] 09-05-2024 16:21-0400 Diastolic blood pressure 84 mm[Hg] Dr. Agnes Crum DO Work Phone: [facility] 09-05-2024 16:21-0400 Heart rate 71 /min Dr. Agnes Crum DO Work Phone: [facility] 09-05-2024 16:21-0400 Respiratory rate 16 /min Dr. Agnes Crum DO Work Phone: [facility] 09-05-2024 16:21-0400 SaO2% (BldA) [Mass fraction] 98 % Dr. Agnes Crum DO Work Phone: [facility] 09-05-2024 16:21-0400 Systolic blood pressure 124 mm[Hg] Dr. Agnes Crum DO Work Phone: [facility] 02-10-2023 11:45-0500 Body temperature 98.78 [degF] OC MITCHELL DO [facility] 02-10-2023 11:45-0500 Diastolic Blood Pressure Non-Invasive 92 mm[Hg] OC MITCHELL DO [facility] 02-10-2023 11:45-0500 Heart rate 79 /min OC MITCHELL DO [facility] 02-10-2023 11:45-0500 Reason For Taking VItal Signs OC MITCHELL DO [facility] 02-10-2023 11:45-0500 Respiratory rate 18 /min OC MITCHELL DO [facility] 02-10-2023 11:45-0500 Systolic Blood Pressure Non-Invasive 142 mm[Hg] OC MITCHELL DO [facility] 02-10-2023 06:35-0500 Body temperature 97.88 [degF] OC MITCHELL DO [facility] 02-10-2023 06:35-0500 Diastolic Blood Pressure Non-Invasive 86 mm[Hg] OC MITCHELL DO [facility] 02-10-2023 06:35-0500 Heart rate 75 /min OC MITCHELL DO [facility] 02-10-2023 06:35-0500 Reason For Taking VItal Signs OC MITCHELL DO [facility] 02-10-2023 06:35-0500 Respiratory rate 16 /min OC MITCHELL DO [facility] 02-10-2023 06:35-0500 Systolic Blood Pressure Non-Invasive 141 mm[Hg] OC MITCHELL DO [facility] 02-10-2023 04:10-0500 Body temperature 97.88 [degF] OC MITCHELL DO [facility] 02-10-2023 04:10-0500 Diastolic Blood Pressure Non-Invasive 74 mm[Hg] OC MITCHELL DO [facility] 02-10-2023 04:10-0500 Heart rate 79 /min OC MITCHELL DO [facility] 02-10-2023 04:10-0500 Reason For Taking VItal Signs OC MITCHELL DO [facility] 02-10-2023 04:10-0500 Respiratory rate 16 /min OC MITCHELL DO [facility] 02-10-2023 04:10-0500 Systolic Blood Pressure Non-Invasive 129 mm[Hg] OC MITCHELL DO [facility] 02-09-2023 23:25-0500 Heart rate 84 /min OC MITCHELL DO [facility] 02-09-2023 19:40-0500 Heart rate 102 /min OC MITCHELL DO [facility] 02-09-2023 19:24-0500 Heart rate 86 /min OC MITCHELL DO [facility] 02-09-2023 11:29-0500 Body height 170.2 cm OC MITCHELL DO [facility] 02-09-2023 11:29-0500 Body weight 78.2 kg OC MITCHELL DO [facility] 02-09-2023 11:29-0500 Body weight 27 kg/m2 OC MITCHELL DO [facility] 02-09-2023 09:40-0500 Body temperature 97.34 [degF] OC MITCHELL DO [facility] 02-09-2023 09:30-0500 Respiratory Rate - Anes 14 br/min OC MITCHELL DO [facility] 02-09-2023 09:25-0500 Respiratory Rate - Anes 9 br/min OC MITCHELL DO [facility] 02-09-2023 09:20-0500 Respiratory Rate - Anes 3 br/min OC MITCHELL DO [facility] 02-09-2023 09:15-0500 Body temperature 97.66 [degF] OC MITCHELL DO [facility] 02-09-2023 09:10-0500 Body temperature 97.54 [degF] OC MITCHELL DO [facility] 02-09-2023 09:05-0500 Body temperature 97.38 [degF] OC MITCHELL DO [facility] 02-09-2023 06:23-0500 Body weight 27 kg/m2 OC MITCHELL DO [facility] 02-09-2023 06:20-0500 Body height 170.2 cm OC MITCHELL DO [facility] 02-09-2023 06:20-0500 Body weight 78.2 kg OC MITCHELL DO [facility] 02-09-2023 06:18-0500 Body temperature 97.88 [degF] OC MITCHELL DO [facility] 02-09-2023 06:18-0500 Heart rate 71 /min OC MITCHELL DO [facility] 01-18-2023 10:07-0500 Blood Pressure Cuff Size OC MITCHELL DO [facility] 01-18-2023 10:07-0500 Blood Pressure Location OC MITCHELL DO [facility] 01-18-2023 10:07-0500 Blood Pressure Method OC MITCHELL DO [facility] 01-18-2023 10:07-0500 Body height 170.2 cm OC MITCHELL DO [facility] 01-18-2023 10:07-0500 Body weight 79.5 kg OC MITCHELL DO [facility] 01-18-2023 10:07-0500 Body weight 27.44 kg/m2 OC MITCHELL DO [facility] 01-18-2023 10:07-0500 Diastolic Blood Pressure Non-Invasive 84 mm[Hg] OC MITCHELL DO [facility] 01-18-2023 10:07-0500 Heart rate 61 /min OC MITCHELL DO [facility] 01-18-2023 10:07-0500 Systolic Blood Pressure Non-Invasive 142 mm[Hg] OC MITCHELL DO [facility] 01-12-2023 12:52-0500 Body height 170.[address] Agnes Crum Work Phone: [facility] 01-12-2023 12:52-0500 Body mass index (BMI) [Ratio] 27.2 kg/m2 Dr. Agnes Crum Work Phone: [facility] 01-12-2023 12:52-0500 Body temperature 97.8 [degF] Dr. Agnes Crum Work Phone: [facility] 01-12-2023 12:52-0500 Body weight 78.[address] Agnes Crum Work Phone: [facility] 01-12-2023 12:52-0500 Diastolic blood pressure 90 mm[Hg] Dr. Agnes Crum Work Phone: [facility] 01-12-2023 12:52-0500 Heart rate 77 /min Dr. Agnes Crum Work Phone: [facility] 01-12-2023 12:52-0500 Respiratory rate 16 /min Dr. Agnes Crum Work Phone: [facility] 01-12-2023 12:52-0500 SaO2% (BldA) [Mass fraction] 98 % Dr. Agnes Crum Work Phone: [facility] 01-12-2023 12:52-0500 Systolic blood pressure 157 mm[Hg] Dr. Agnes Crum Work Phone: [facility] 12-30-2022 07:11-0500 Body temperature 98.1 [degF] Dr. gAnes Crum Work Phone: [facility] 12-30-2022 07:11-0500 Diastolic blood pressure 82 mm[Hg] Dr. Agnes Crum Work Phone: [facility] 12-30-2022 07:11-0500 Heart rate 73 /min Dr. Agnes Crum Work Phone: [facility] 12-30-2022 07:11-0500 Respiratory rate 14 /min Dr. Agnes Crum Work Phone: [facility] 12-30-2022 07:11-0500 SaO2% (BldA) [Mass fraction] 98 % Dr. Agnes Crum Work Phone: [facility] 12-30-2022 07:11-0500 Systolic blood pressure 158 mm[Hg] Dr. Agnes Crum Work Phone: [facility] 10-15-2022 16:52-0400 Body mass index (BMI) [Ratio] 27.2 kg/m2 Dr. Agnes Crum Work Phone: [facility] 10-15-2022 16:52-0400 Body temperature 98.6 [degF] Dr. Agnes Crum Work Phone: [facility] 10-15-2022 16:52-0400 Body weight 78.[address] Agnes Crum Work Phone: [facility] 10-15-2022 16:52-0400 Diastolic blood pressure 83 mm[Hg] Dr. Agnes Crum Work Phone: [facility] 10-15-2022 16:52-0400 Heart rate 73 /min Dr. Agnes Crum Work Phone: [facility] 10-15-2022 16:52-0400 Respiratory rate 17 /min Dr. Agnes Crum Work Phone: [facility] 10-15-2022 16:52-0400 SaO2% (BldA) [Mass fraction] 96 % Dr. Agnes Crum Work Phone: [facility] 10-15-2022 16:52-0400 Systolic blood pressure 147 mm[Hg] Dr. Agnes Crum Work Phone: [facility] Encounters Encounter Date Encounter Type Care Provider Facility Start: 12-25-2024 End: 12-25-2024 Emergency department patient visit Judd Narvaez Facility:[facility] Start: 10-30-2024 End: 10-30-[address] Agnes Crum DO Work Phone: -Outpatient Bone Densitometry Start: 10-30-2024 End: 10-30-[address] Agnes Crum DO -Outpatient Bone Densitometry Work Phone: Start: 10-30-2024 End: 10-30-2024 ambulatory Agnes Crum Facility:[facility] Start: 10-25-2024 End: 10-25-[address] Agnes Crum DO Work Phone: -[facility] Start: 10-25-2024 End: 10-25-[address] Agnes Crum DO -[facility] Start: 10-25-2024 End: 10-25-2024 ambulatory Agnes Crum Facility:[facility] Start: 10-10-2024 End: 10-10-[address] Agnes Crum DO Work Phone: -Outpatient Breast Imaging Start: 10-10-2024 End: 10-10-[address] Agnes Crum DO -Outpatient Breast Imaging Work Phone: Start: 10-10-2024 End: 10-10-2024 ambulatory Agnes Crum Facility:[facility] Start: 09-05-2024 End: 09-05-2024 Patient encounter procedure Lamont Rahman [facility] Work Phone: Start: 09-05-2024 End: 09-05-[address] Agnes Crum DO Work Phone: -[facility] Start: 02-13-2024 End: 02-13-2024 ambulatory Titi Patel Facility:[facility] Start: 01-05-2024 End: 01-05-2024 ambulatory Migel HAYNES Facility:[facility] Start: 04-26-2023 End: 04-26-[address] Agnes Crum Work Phone: [facility] Work Phone: Start: 04-26-2023 End: 04-26-[address] Agnes Crum Work Phone: [facility]-Physical Therapy Work Phone: Start: 04-26-[address] Agnes Crum Work Phone: [facility] Work Phone: Start: 02-09-2023 End: 02-10-2023 ambulatory SHARI ANDERSON APRN-YOEL Facility:[facility] Start: 02-09-2023 End: 02-10-2023 Observation OC MITCHELL DO [facility] Start: 01-18-2023 End: 01-19-[address] AGNES CRUM DO Facility:[facility] Start: 01-18-2023 End: 01-18-2023 [facility] Start: 01-12-2023 End: 01-12-2023 Emergency department patient visit Dr. Agnes Crum Work Phone: [facility]-Emergency Department Work Phone: Start: 12-30-2022 End: 12-30-[address] Agnes Crum Work Phone: [facility] Work Phone: Start: 12-03-[address] Agnes Crum Work Phone: [facility]-Physical Therapy Work Phone: Start: 10-27-2022 End: 10-27-[address] Agnes Crum Work Phone: [facility]-Radiology, [facility] Work Phone: Start: 10-15-2022 End: 10-15-[address] Agnes Crum Work Phone: [facility] Work Phone: Start: 03-04-2022 End: 03-04-2022 ambulatory [facility] Work Phone: Start: 03-04-2022 End: 03-04-2022 Patient encounter procedure [facility]-Laboratory, Specimen Start: 10-12-2021 End: 10-12-2021 ambulatory [facility] Work Phone: Start: 10-12-2021 End: 10-12-2021 Patient encounter procedure [facility]Laboratory Start: 10-05-2021 End: 10-05-2021 ambulatory [facility] Work Phone: Start: 10-05-2021 End: 10-05-2021 Discharged Recurring [facility] Start: 10-05-2021 [facility]: 03-03-[address] [facility] Start: 01-29-[address] Agnes Crum Work Phone: [facility]-Pulmonary Services/Neurology Start: 01-29-2021 Non-patient / Non-visit Dr. Mt Crum Work Phone: [facility] Procedures Date Procedure Procedure Detail Performing Clinician [...] Start: 02-09-2023 Cervical arthrodesis by anterior technique OC MITCHELL DO Start: 10-27-2022 X-ray of cervical spine Dr. Agnes Crum Work Phone: Start: 01-29-2021 Plain chest X-ray Dr. 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 Patient Education Cervical Spine Tx ED Back and Neck Pain, General [facility] Work Phone: Patient referral [facility] Work Phone: Immunizations Immunization Date Immunization Notes Care Provider Saul rand 12-06-2022 influenza virus vaccine, unspecified formulation OC MITCHELL DO [facility] 12-06-2022 SARS-CoV-2 (COVID-19 ) [id number] OC MITCHELL DO [facility] 12-22-2021 influenza virus vaccine, unspecified formulation OC MITCHELL DO [facility] 02-17-2021 SARS-CoV-2 mRNA (tozinameran) vaccine OC MITCHELL DO [facility] 05-29-2020 SARS-CoV-2 mRNA (tozinameran) vaccine OC MITCHELL DO [facility] 05-08-2020 SARS-CoV-2 mRNA (tozinameran) vaccine OC MITCHELL DO [facility] 11-01-2019 influenza virus vaccine, unspecified formulation OC MITCHELL DO [facility] 02-02-2019 pneumococcal conjuga te vaccine, 13 valent OC MITCHELL DO [facility] Payers Date Payer Category Payer Self-pay [id number] 2023 Private Health Insurance CLI [id number] 2022 Unknown [id number] 2018 Medicare [id number] 1955 Unknown [id number] 2.16.8 [id number] 1955 Unknown [id number] 2.16.8 [id number] 1955 Unknown [id number] 2.16.8 [id number] Private Health Insurance [id number] Unknown [id number] Unknown [id number] 2.16.8 [id number] Unknown [id number] 2.16.8 [id number] Unknown [id number] 2.16.8 [id number] Unknown [id number] 2.16.8 [id number] Unknown [id number] 2.16.8 [id number] Unknown [id number] Unknown [id number] Unknown [id number] Social History Date Type Detail Facility Start: 01-27-2020 End: 01-12-2023 Tobacco smoking status NHIS Unknown if ever smoked [facility] Start: 1955 Sex Assigned At Female W [facility] Start: 01-18-2023 Tobacco smoking status Never s moked tobacco (finding) [facility] Sex Assigned At Sex [facility] Start: 09-05-2024 Tobacco smoking stat us NHIS Ex-smoker (finding) [facility] Sex Female 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, Home management, Housework, Laundry, 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, Personal ADL, Shopping, Social participation [facility] 02-09-2023 Functional Status Identified as high risk, Fall ID band on, Room located near nursing station, Bed alert on, Door open, Non-Slip footwear [facility] 02-09-2023 Functional Status Patient Identi fied Identification band [facility] 02-09-2023 Functional Status Maintained [facility] 01-18-2023 Functional Status Sensory Defici ts Hearing deficit, left ear, Hearing deficit, right ear [facility] Mental Status Date Assessment Result Facility 02-10-2023 Mental Status Oriented x 4 [facility] 02-09-2023 Mental Status [facility] 02-09-2023 Mental Status [facility] 01-12-2023 Cognitive function Level Of Cons ciousness Awake;Alert;Appropriate;Follow s Commands [facility] Work Phone: Clinical Notes 01-18-2023 to 04-26-2023 Note Date & Type Note Facility 04-26-2023 Discharge summary Note Date/Time April 26, 2023 11:03am [facility] Physical Therapy [facility] [address] [place] [address] / REHABILITATION SERVICES DISCHARGE SUMMARY MR#: [id number] Acct: [id number] Name: JOSHUA NOGUEIRA Rep #: [id number] 05 : 1955 67 From: Cert. DEN TylerT, OCS Referring Dr.: Dr. Oc Mitchell DO Status: REG RCR Insurance: MEDICARE PART A B MEDICARE SUPPLEMENT PLAN Discharge Summary D/C summary: It has been my pleasure to treat JOSHUA NOGUEIRA referred by Dr. Oc Mitchell DO, with the diagnosis of SPINAL [...] MIN/MOD MMT: grossly 4/5 except shoulders 4-/5 FIRE LIEUTENANT STRENGTH: right 45# ,left 45 # dynameter [...] please feel free to call me at [phone]. Thank you for the referral of thispatient. Sincerely, Jm Araya PT, Cert MDT, OCS Balance/Gait/Functional tests Balance/Special Test Scores Oswestry Neck Score: 22 Improvement % Improvement: 90 <Electronically signed by Broderick Erazo PT. MARY JO, OCS> 04/26/23 [id number] CC: Dr. Oc Mitchell, DO; Dr. Agnes Crum, DO ~ TAMARA Signed [facility] Work Phone: [phone]) 265-741812-28-2023 Hospital Discharge instructions Patient Education 02/10/2023 09:51:03 [...] and water are not available, use hand threading machine setter. ?Change your dressing as told by your [...] smell. Managing pain, stiffness, and swelling Take yjog-qbk-jgdxuje and prescription medicines only as told by [...] to keep your urine pale yellow. ?Take lvjz-pzv-cotnxho or prescription medicines. ?Eat foods that are [...] 02/27/2016 Document Revised: 10/26/2018 Document Reviewed: 10/26/2018 Offerum Patient Education 2020 [email or web address]. Follow Up Care 12/15/2022 08:19:25 With:OC MITCHELL DO, Orthopedic Address: [address] [place] [address], [address] [facility] [place] [address]- [phone] When:03/02/2023 11:15:00 Comments:This is your post-op appointment. Follow-up as scheduled. [facility] 12-28-2023 Note Discharge Instructions Thank you for allowing [facility] to assist you with your healthcare needs. [...] not take any medications, herbal, prescription, or lgqk-rld-kogllri unless prescribed for the next 12 weeks Remember to take your pain medication and/or muscle relaxants as ordered to keep your pain under control No NSAIDs for 3 months, will interfere with the fusion. Swelling around the nerves can cause continued numbness and tingling for days or weeks after surgery Follow Up Appointments Follow Up with OC MITCHELL DO, Orthopedic When 03/02/2023 11:15 AM EST Why: This is your post-op appointment. Follow-up as scheduled. Where: [address] [place] [address], [address] [facility] [place] [address]- [phone] The Following Activity and Diet Have Been [...] Why Instructions Last Dose Unchanged acetaminophen- hydrocodone ([place] 325- 5 mg oral tablet) 1 tab(s) by mouth Every 6 hours as needed for for pain Cervical spondylosis Duration: 7 Days Pickup at [facility] Unchanged citalopram (citalopram 20 mg oral tablet) 1 tab(s) by mouth Once a day Unchanged gabapentin (gabapentin 100 mg oral capsule) 2 cap by mouth Three (3) times a day Unchanged levothyroxine (levothyroxine 75 mcg (0.075 mg) oral tablet) 1 tab(s) by mouth Once a day Pharmacy Information [facility]ly [facility] 181: [address] [place] [phone] Please take this list to your next [...] SEET a MIN [place] droe KOE done) Lortab Elixir, Verdrocet What is the [...] may report side effects to FDA at 2-547-PAL-1088. What other drugs will affect acetaminophen and [...] and cause dangerous side effects or . Besure your doctor knows if you also use: [...] affect acetaminophen and hydrocodone, including prescription and xitw-wrd-zmohvdw medicines, vitamins, and herbal products. Not all [...] to ensure that the information provided by [employer]. ('[employer]') is accurate, up-to-date, and complete, but no guarantee is made to that effect. Drug information contained herein may be time sensitive. [employer] information has been compiled for use by healthcare practitioners and consumers in the [place] and therefore [employer] does not warrant that uses outside of the [place] are appropriate, unless specifically indicated otherwise. [employer]s drug information does not endorse drugs, diagnose patients or recommend therapy. [employer]s drug information isan informational resource designed to [...] effective or appropriate for any given patient. [facility] does not assume any responsibility for any aspect of healthcare administered with the aid of information [facility] provides. The information contained herein is not intended to cover all possible uses, directions, precautions, warnings, drug interactions, allergic reactions, or adverse effects. If you have questions about the drugs you are taking, check with your doctor, nurse or pharmacist. Copyright [facility] Center[facility]. Version: 19.. Revision Date: 10/04/2022. Education Materials [...] and water are not available, use hand threading machine setter. ? Change your dressing as told by [...] smell. Managing pain, stiffness, and swelling Take lcdn-nve-sbqzgil and prescription medicines only as told by [...] keep your urine pale yellow. ? Take yciv-aid-lykeiwq or prescription medicines. ? Eat foods that [...] 02/27/2016 Document Revised: 10/26/2018 Document Reviewed: 10/26/2018 ElseSigmaFlow Patient Education 2020 [employer]. Additional Information VACCINATE! IT SAVES LIVES! Members of the community who have not yet received the COVID-19 vaccine and would like to receive it can visit one of [facility] vaccine clinics. There are many vaccine clinic locations within the [facility]. For locations and available times, please visit https://gettheshot.coronavirus.[place].gov/. It is important to note that some COVID mobile vaccine clinics are held outdoors and may be canceled in rainy or stormy conditions. To learn more about pediatric vaccinations (ages 5-11), we invite you to visit the [facility] webpage. https://www.HyperBeess.org/pages/6839-Ddoja-Azeovsocfzo-Phnxvtzpfb-Bnskz-Tll stions.htmlTo learn more about the COVID-19 vaccine, we invite you to visit the CDC website for a list of frequently asked questions.https://www.cdc.gov/coronavirus/2019-ncov/vaccines/faq.html [facility] Patient Portal Access Instructions: Stay connected with your healthcare team and access your personal medical information anytime with the [facility] Patient Portal. Please follow the directions below to create your [facility] account: 1.Access the email account you provided upon registration to the hospital/physician office.2.Look for an invitation email from [facility].3.Open the email and access the invitation link: AcceptInvitation to [facility].4.Fill in the required short to create your account. To access your account, visit [employer]. Click the blue button labeled Access Patient Portal and then log in with the username [...] who you will allowto register on the [facility] Portal for access to your information. You can also access the [facility] Patient Portal on the [facility] nadia. Simply click on Patient Portal and then log into your account. If you would like to receive a full copy of your medical records, please contact the [facility] Medical Records Department by calling [phone], Tuesday through Tuesday between 8 a.m. and [...] Call your local pharmacy or go to http://Active Circle/6F0Jn3c to find one close to you.3.Make use of household items: Use cat litter or old coffee grounds to dispose medications if other options arenot available. Mix your drugs with these household products, seal them in an airtight container andthrow it into the garbage. Call [facility]: [phone] to be sure your drugs can be [...] been reviewed and explained to me and IMIRLANDE DAWNE E understand my current condition and have read and understand these discharge instructions. I have received a written copy of the plan/instructions. If I have questions, I am aware that I should contact my doctor. 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 Digitally Signed by SELWYN FENTON on 02/10/2023 11:42 AM [facility]12-27-2023 Note ORIGINAL Images acquired, not reported on this accession number.[facility]12-27-2023 Anesthesiology Consult note Patient: JOSHUA NOGUEIRA Age: [...] been selected or recorded. Procedure history: Appendectomy ([id number]). Cholecystectomy ([id number]). Ovarian tumor ([id number]). Comments: 01/18/2023 10:03 EST - Pricila Loera RN RIGHT Hysterectomy ([id number]). Tonsillectomy and adenoidectomy ([id number]). Social History Social & Psychosocial Habits Alcohol [...] Height 170.2 cm Admission Weight 78.2 kg [place] Body Weight 61.62 kg Admission Body Mass [...] Person #1 We May Share DORIE NOGUEIRA [phone] Designated Person #1 Relationship Daughter Privacy Restrictions [...] No Advanced Directives Yes Advance Directive Type [place] Durable Power of Knitter Mechanic for [place], [place] Declaration (Living Will) Advance Directive Location [...] after midnight, No makeup, No jewelry, Responsible Green Party, Aware of surgery location, Pre-op education done, 1 bottle CHG wash with instructions given, Instructed to take ordered medications, SSI prevention handout given SN - Preprocedure Comments Spoke with patient, Verbalizes/Nonverbally indicates understanding, Other: levothyroxine Barriers to Learning None evident Teaching Method Explanation Preferred Spoken Language Bahamian Preferred Written Language Bahamian Teaching Evaluation No further teaching needed Safety [...] Height 170.2 cm Admission Weight 78.2 kg [place] Body Weight 61.62 kg Admission Body Mass [...] Void 02/09/2023 5:30 . Assessment and Plan [place] Society of Anesthesiologists (ASA) physical status classification: Class III. Anesthetic Preoperative Plan Anesthetic technique: General. Maintenance airway: Oral endotracheal tube. Postoperative pain management: Per surgeon. Risks discussed: nausea, vomiting, sore throat, dental injury, hypotension, allergic reaction, serious complications. Informed consent: signed by patient. Digitally Signed by TERRANCE MASON on 02/09/2023 06:51 AM [facility]12-05-2023 Note ORIGINAL EXAMINATION: TWO XRAY VIEWS OF [...] Sign Date: 01/18/2023 11:53:58 AM Ordering Provider: [facility] Future Appointments [facility] Evaluation noteNo assessment information available [facility] Work Phone: Evaluation note* Diagnosis Onset Date Resolution Status Cervical strain, acute acute Right shoulder pain acute Bronchitis acute [facility] Work Phone: Evaluation note* Diagnosis Onset Date Resolution Status Bronchitis acute [facility] Work Phone: Hospital course Narrative No data available for this section [facility] Hospital Discharge instructions Additional Instructions Please keep your appointments as scheduled.[facility] Work Phone: Hospital Discharge instructions No data available for this section [facility] Progress note No data available for this section [facility] Reason for referral (narrative)No reason for [facility]: Chief Complaint and Reason for [...] 6 9:22am Living Will No October 21 9:56am Power of Knitter Mechanic No October 21, 2018 9:56am Advance Directive Response Recorded Date/ Time Advance Directives No June 29 6 8:22am Living Will No October 21 019 8:56am Power of Knitter Mechanic No October 21, 2018 8:56am Advance Directive Response Recorded Date/ Time Advance Directives No June 29 6 8:22am Living Will No January 12, 023 1:11pm Power of Knitter Mechanic No January 12, 2023 1:11pm Advance Directive Response Recorded Date/ Time Advance Directives No June 29 6 9:22am Living Will No January 12 2 023 2:11pm Power of Knitter Mechanic No January 12, 2023 2:11pm Advance Directive [...] Role Status Dates Dr. Agnes Crum DO Family Provider Active Dr. Agnes Crum DO Primary Care Provider Active Team Status: Inactive Member Role Status Dates Dr. Agnes Crum DO Primary Care Provider, Attendin g Provider Active Team Status: Inactive Member Role Status Dates Dr. Agnes Crum DO Primary Care Provider, Referrin g Provider Active Migel HAYNES, PA Attending Provider Active Team Status: Inactive Member Role Status Dates Dr. Agnes Crum DO Primary Care Provider Active Dr. Geoffrey Mcmahon , WING Attending Provider, Referring P rovider Active Team Status: Active Member Role Status Dates Dr. Agnes Crum DO Primary Care Prov ider, Attending Provider, Referring Provider Active Team Status: Inactive Member Role Status Dates Dr. Agnes Crum DO Primary Care Provider Active Dr. Evgeny Contreras , DO Emergency Provider Active Team Status: Active Member Role Status Dates Dr. Agnes Crum DO Primary Care Provider Active Dr. Oc Mitchell , DO Attending Provider, Referring P rovider Active Team Status: Inactive Member Role Status Dates Dr. Agnes Crum DO Primary Care Provider Active Dr. Evgeny Contreras , DO Attending Provider, Emergency Provide r Active Team Status: Inactive Member Role Status Dates Dr. Agnes Crum DO Primary Care Provider Active Dr. Oc Mitchell , DO Attending Provider, Referring P rovider Active Team Status: Active Member Role/Relationship Status Dates Dr. Agnes Crum DO Family Provider Active Dr. Agnes Crum DO Primary Care Provider Active Team Status: Inactive Member Role/Relationship Status Dates Dr. Agnes Radames , DO Primary Care Provider Active Start: September 05, 2024 End: September 05, 2024 Dr. Agnes Crum DO Referring Provider Active Start: September 05, 2024 End: September 05, 2024 Lamont HAYNES PA Attending Provider Active Start: September 05, [...] September 05, 2024 End: September 05, 2024 [place] Lilly Attending physician Active Start: September 05, 2024 [...] section and content) DATE CREATED AUTHOR 07/07/2023 [facility] ([place]) DATE CREATED AUTHOR AUTHOR'S ORGANIZ ATION 12/26/2024 [facility] FOR RECORDS PERTAINING TO PATIENTS WHO ARE [...] BE BASED ON THE PRIMARY CLINICAL RECORDS. [employer] provides no warranty or guarantee of the accuracy or completeness of information in this document.
== END 2025-01-12 09:57 | disposition home or self-care (01) ==
LOC: ED 09:53
PROVIDERS: Emergency Provider Student in an Organized Health Care Education/Training Program; PCP Family Medicine; Visit Provider Student in an Organized Health Care Education/Training Program
DX: M79.674 Pain in right toe(s) (principal); Z87.891 Personal history of nicotine dependence; E03.9 Hypothyroidism, unspecified; Z79.890 Hormone replacement therapy; Z90.49 Acquired absence of other specified parts of digestive tract
CPT/HCPCS: 99282